=== PATIENT | male | born 1950 | race Hispanic/Latino ===

== ENCOUNTER 2018-04-05 01:06 | Inpatient (IN) | payer OTHER ==
[2018-04-05] MEDS ORDERED: predniSONE 20 MG TAB ONE (01:49)
[2018-04-05] MEDS ORDERED: IPRATROPIUM BROM 0.5MG/2.5ML ONE (01:49)
[2018-04-05] MEDS ORDERED: ALBUTEROL 2.5 MG/3 ML NEB SOL ONE (01:49)
[2018-04-05 02:07] LABS: Absolute Lymphocytes (CBC) 1.2 K/uL (0.7-4.9); Absolute Monocytes 0.6 K/uL (0.1-1.3); Absolute Neutrophil 4.8 K/uL (1.8-8.0); Basophils % 0.6 % (0-1.3); Eosinophils % 2.6 % (0-4.4); Lymphocytes % 16.9 % (15.3-44.8); MCH 27.8 pg (27.0-35.0); MCV 83.6 fL (80-100); MPV 8.1 fL (7.6-11.3); Monocytes % 9.2 % (3.3-12.3); RBC Red Blood Cell Count 6.22 M/uL (4.33-5.43)
[2018-04-05 02:19] LABS: Magnesium 2.2 mg/dL (1.8-2.4); Potassium 4.2 mmol/L (3.5-5.1); Troponin (Emerg Dept Use Only) 0.13 ng/mL (0.0-0.045)
[2018-04-05] MEDS ORDERED: FUROSEMIDE 40 MG/4 ML VIAL ONE (03:32)
--- NOTE | 2018-04-05 03:46 | EDPHYS ---
Physician Documentation [facility] Name: Denilson Quiros Age: 67 yrs Sex: Male : 1950 Arrival Date: 04/05/2018 Time: 01:07 Bed 3 Private MD: Praveena Rosado F ED Physician Hussein Fuller HPI: 04/05 03:34 This 67 yrs old Male presents to ER via Ambulatory with complaints of gs Breathing Difficulty, Chest Pain. 03:34 This 67 yrs old Male presents to ER via Ambulatory with complaints of gs Breathing Difficulty, Chest Pain. 03:34 The patient has shortness of breath at rest. Onset: The symptoms/episode began/occurred gs acutely, yesterday. Duration: The symptoms are continuous. The patient's shortness of breath has no apparent modifying factors. Associated signs and symptoms: Pertinent positives: chest pain. Severity of symptoms: At their worst the symptoms were moderate in the emergency department the symptoms are unchanged. The patient has experienced similar episodes in the past, a few times. Historical: - Allergies: 01:30 No Known Allergies; ao - Home Meds: 01:30 None [Active]; ao - PMHx: 01:30 Hyperlipidemia; ao 04:26 Cancer; ao - PSHx: 01:30 stent; ao - Immunization history:: Adult Immunizations up to date. - Social history:: Smoking status: Patient uses tobacco products, smokes one-half pack cigarettes per day, Patient/guardian denies using alcohol, street drugs. - Ebola Screening: : Patient negative for fever greater than or equal to 101.5 degrees Fahrenheit, and additional compatible Ebola Virus Disease symptoms Patient denies exposure to infectious person Patient denies travel to an Ebola-affected area in the 21 days before illness onset. ROS: 03:38 All other systems are negative. gs Exam: 03:38 Head/Face: Normocephalic, atraumatic. Eyes: Pupils equal round and reactive to light, gs extra-ocular motions intact. Lids and lashes normal. Conjunctiva and sclera are non-icteric and not injected. Cornea within normal limits. Periorbital areas with no swelling, redness, or edema. ENT: Nares patent. No nasal discharge, no septal abnormalities noted. Tympanic membranes are normal and external auditory canals are clear. Oropharynx with no redness, swelling, or masses, exudates, or evidence of obstruction, uvula midline. Mucous membranes moist. Neck: Trachea midline, no thyromegaly or masses palpated, and no cervical lymphadenopathy. Supple, full range of motion without nuchal rigidity, or vertebral point tenderness. No Meningismus. Chest/axilla: Normal chest wall appearance and motion. Nontender with no deformity. No lesions are appreciated. 03:38 Abdomen/GI: Soft, non-tender, with normal bowel sounds. No distension or tympany. No guarding or rebound. No evidence of tenderness throughout. Back: No spinal tenderness. No costovertebral tenderness. Full range of motion. Skin: Warm, dry with normal turgor. Normal color with no rashes, no lesions, and no evidence of cellulitis. MS/ Extremity: Pulses equal, no cyanosis. Neurovascular intact. Full, normal range of motion. Neuro: Awake and alert, GCS 15, oriented to person, place, time, and situation. Cranial nerves II-XII grossly intact. Motor strength 5/5 in all extremities. Sensory grossly intact. Cerebellar exam normal. Normal gait. 03:38 Constitutional: The patient appears alert, awake. 03:38 Cardiovascular: Rate: normal, Rhythm: irregularly irregular, Heart sounds: normal. 03:38 Cardiovascular: Edema: is not appreciated. 03:38 ECG was reviewed by the Attending Physician. 03:38 Respiratory: the patient does not display signs of respiratory distress, Respirations: normal, Breath sounds: rhonchi, that are moderate, are located in both bases, are heard diffusely. 03:38 Musculoskeletal/extremity: Joints: the right ankle displays swelling, DVT Exam: no gs pain, no swelling, no tenderness, negative Homans' sign noted on exam, no appreciated bluish discoloration, no erythema, no increased warmth. Vital Signs: 01:21 BP 156 / 86 LA Sitting (auto/reg); Pulse 66 LA; Resp 20 S; Temp 98.6(O); Pulse Ox 88% cb2 on R/A; Weight 83.91 kg (R); Height 5 ft. 6 in. (167.64 cm) (R); 02:30 BP 115 / 87; Pulse 70; Resp 16; Pulse Ox 98% on 2 lpm NC; ao 02:30 BP 120 / 71; Pulse 77; Resp 18; Pulse Ox 97% on 2 lpm NC; Pain 0/10; ao 04:01 BP 115 / 75; Pulse 78; Resp 16; Pulse Ox 96% on 2 lpm NC; ao 01:21 Body Mass Index 29.86 (83.91 kg, 167.64 cm) cb2 MDM: 01:34 Patient medically screened. 03:38 Differential diagnosis: CHF exacerbation, Chronic Obstructive Pulmonary Disease gs Myocardial Infarction pneumonia. Data reviewed: vital signs, nurses notes. 03:38 ED course: dr rosado did not call back will interim admit to [facility]. 04/05 01:37 Order name: Basic Metabolic Panel; Complete Time: 02:21 04/05 01:37 Order name: CBC with Diff; Complete Time: 02:21 04/05 01:37 Order name: Magnesium; Complete Time: 02:21 04/05 01:37 Order name: NT PRO-BNP; Complete Time: 02:21 04/05 01:37 Order name: Troponin (emerg Dept Use Only); Complete Time: 02:21 04/05 03:51 Order name: NT PRO-BNP [facility] 04/05 01:37 Order name: XRAY Chest (1 view) 04/05 03:51 Order name: Echo with Doppler [facility] 04/05 03:51 Order name: NT PRO-BNP [facility] 04/05 03:51 Order name: Troponin I [facility] 04/05 03:51 Order name: Troponin I [facility] 04/05 03:51 Order name: Troponin I [facility] 04/05 01:37 Order name: EKG; Complete Time: 01:37 04/05 01:37 Order name: Cardiac monitoring; Complete Time: 02:03 04/05 01:37 Order name: EKG - Nurse/Tech; Complete Time: 02:03 04/05 01:37 Order name: IV Saline Lock; Complete Time: 02:03 04/05 01:37 Order name: Labs collected and sent; Complete Time: 02:03 04/05 01:37 Order name: O2 Per Protocol; Complete Time: 02:03 04/05 01:37 Order name: O2 Sat Monitoring; Complete Time: 02:03 04/05 01:37 Order name: Urine Dipstick-Ancillary (obtain specimen); Complete Time: 03:57 04/05 03:51 Order name: CONS Physician Consult [facility] 04/05 03:51 Order name: Low Sodium EDPR EC:38 Rate is 62 beats/min. Rhythm is irregularly irregular, A fib. QRS interval is gs prolonged. QT interval is normal. T waves are Inverted. Clinical impression: Abnormal EKG without significant change and Atrial Fibrillation. Interpreted by me. Administered Medications: 01:51 Drug: AtroVENT Aerosol 0.5 mg Route: Inhalation; ao 03:32 Follow up: Response: No adverse reaction ao 01:51 Drug: predniSONE 40 mg Route: PO; ao 03:32 Follow up: Response: No adverse reaction ao 01:52 Drug: Albuterol - atroVENT (3:1) (2.5 mg - 0.5 mg) 3 ml Route: Nebulizer; ao 03:32 Follow up: Response: No adverse reaction ao 03:32 Drug: Lasix 40 mg Route: IVP; Site: left forearm; ao 04:18 Follow up: Response: No adverse reaction ao 04:18 Drug: Aspirin 325 mg Route: PO; ao 04:41 Follow up: Response: No adverse reaction ao Disposition: 03:38 Critical Care:. gs Disposition: 04/05/18 03:45 Hospitalization ordered by Kathleen Dejesus for Inpatient Admission. Preliminary diagnosis is Systolic (congestive) heart failure. - Bed requested for Telemetry/MedSurg (Inpatient). - Status is Inpatient Admission. ao - Condition is Stable. - Problem is new. - Symptoms have improved. UTI on Admission? No Critical care time excluding procedures: 03:38 Critical care time: Bedside Care: 10 minutes, Consultation: 10 minutes, Family gs Intervention: 10 minutes. Total time: 30 minutes Signatures: Dispatcher [employer] [facility] Madison García RN RN mw Ortiz, Alex, RN RN ao Starr, Gregory, MD MD gs Corrections: (The following items were deleted from the chart) 04:06 03:45 Hospitalization Ordered by Kathleen Dejesus MD for Inpatient Admission. Preliminary diagnosis is Systolic (congestive) heart failure. Bed requested for Telemetry/MedSurg (Inpatient). Status is Inpatient Admission. Condition is Stable. Problem is new. Symptoms have improved. UTI on Admission? No. gs 04:42 04:06 04/05/2018 03:45 Hospitalization Ordered by Kathleen Dejesus MD for Inpatient ao Admission. Preliminary diagnosis is Systolic (congestive) heart failure. Bed requested for Telemetry/MedSurg (Inpatient). Status is Inpatient Admission. Condition is Stable. Problem is new. Symptoms have improved. UTI on Admission? No. mw
--- NOTE | 2018-04-05 03:46 | ER ---
Nurse's Notes [facility] Name: Denilson Quiros Age: 67 yrs Sex: Male : 1950 Arrival Date: 04/05/2018 Time: 01:07 Bed 3 Private MD: Praveena Ansari F Diagnosis: Systolic (congestive) heart failure Presentation: 04/05 01:25 Presenting complaint: Patient states: Cough for a month that is getting worst. Patient ao started C/O SOB for a day and chest pain related to the cough as stated by patient. Pt O2 was 88 at triage and started on 2l NC. Transition of care: patient was not received from another setting of care. Onset of symptoms is unknown. Risk Assessment: Do you want to hurt yourself or someone else? Patient reports no desire to harm self or others. Initial Sepsis Screen: Does the patient meet any 2 criteria? No. Patient's initial sepsis screen is negative. Does the patient have a suspected source of infection? No. Patient's initial sepsis screen is negative. Care prior to arrival: None. 01:25 Method Of Arrival: Ambulatory ao 01:25 Acuity: CHUCKY 3 ao Triage Assessment: 01:33 General: Appears in no apparent distress. comfortable, Behavior is calm, cooperative, ao appropriate for age. Respiratory: Reports shortness of breath at rest Onset: The symptoms/episode began/occurred at an unknown time. the patient has moderate shortness of breath. Historical: - Allergies: 01:30 No Known Allergies; ao - Home Meds: 01:30 None [Active]; ao - PMHx: 01:30 Hyperlipidemia; ao 04:26 Cancer; ao - PSHx: 01:30 stent; ao - Immunization history:: Adult Immunizations up to date. - Social history:: Smoking status: Patient uses tobacco products, smokes one-half pack cigarettes per day, Patient/guardian denies using alcohol, street drugs. - Ebola Screening: : Patient negative for fever greater than or equal to 101.5 degrees Fahrenheit, and additional compatible Ebola Virus Disease symptoms Patient denies exposure to infectious person Patient denies travel to an Ebola-affected area in the 21 days before illness onset. Screenin:33 Abuse screen: Denies threats or abuse. Denies injuries from another. Nutritional ao screening: No deficits noted. Tuberculosis screening: No symptoms or risk factors identified. Fall Risk None identified. Assessment: 01:30 General: Appears in no apparent distress. comfortable, Behavior is calm, cooperative, ao appropriate for age. Pain: Complains of pain in chest. Neuro: Level of Consciousness is awake, alert, obeys commands, Oriented to person, place, time, situation, Appropriate for age Moves all extremities. Full function Speech is normal, Facial symmetry appears normal. Cardiovascular: Heart tones S1 S2 Capillary refill < 3 seconds Patient's skin is warm and dry. Rhythm is regular. Respiratory: Airway is patent Trachea midline Respiratory effort is even, unlabored, Respiratory pattern is regular, Breath sounds with crackles bilaterally. GI: Abdomen is non-distended. : No signs and/or symptoms were reported regarding the genitourinary system. EENT: No signs and/or symptoms were reported regarding the EENT system. Derm: Skin is intact, Skin is pink, warm \T\ dry. normal, Skin temperature is warm. Musculoskeletal: Circulation, motion, and sensation intact. Capillary refill < 3 seconds, Range of motion: intact in all extremities. 02:30 Reassessment: Patient appears in no apparent distress at this time. Patient and/or ao family updated on plan of care and expected duration. Pain level reassessed. Patient is alert, oriented x 3, equal unlabored respirations, skin warm/dry/pink. Continuous monitoring. Pt in no distress. 03:19 Reassessment: Patient appears in no apparent distress at this time. Patient and/or ao family updated on plan of care and expected duration. Pain level reassessed. Patient is alert, oriented x 3, equal unlabored respirations, skin warm/dry/pink. Patient in room with family at bedside. Patient under no distress. 03:57 Reassessment: Patient appears in no apparent distress at this time. Patient and/or ao family updated on plan of care and expected duration. Pain level reassessed. Pt to stay in the hospital. Patient agree with the POC. Waiting on admitting Dr orders. Vital Signs: 01:21 BP 156 / 86 LA Sitting (auto/reg); Pulse 66 LA; Resp 20 S; Temp 98.6(O); Pulse Ox 88% cb2 on R/A; Weight 83.91 kg (R); Height 5 ft. 6 in. (167.64 cm) (R); 02:30 BP 115 / 87; Pulse 70; Resp 16; Pulse Ox 98% on 2 lpm NC; ao 02:30 BP 120 / 71; Pulse 77; Resp 18; Pulse Ox 97% on 2 lpm NC; Pain 0/10; ao 04:01 BP 115 / 75; Pulse 78; Resp 16; Pulse Ox 96% on 2 lpm NC; ao 01:21 Body Mass Index 29.86 (83.91 kg, 167.64 cm) cb2 ED Course: 01:07 Patient arrived in ED. ds1 01:07 Praveena Ansari MD is Private Physician. ds1 01:14 Hussein Fuller MD is Attending Physician. gs 01:25 Chet Ramos, JONH is Primary Nurse. ao 01:27 Triage completed. ao 01:27 Arm band placed on right wrist. Patient placed in an exam room, on a stretcher, on ao oxygen, on pulse oximetry. 01:33 Patient has correct armband on for positive identification. sales route driver helper on. Pulse ao ox on. 01:49 X-ray completed. Portable x-ray completed in exam room. Patient tolerated procedure kw well. 01:49 XRAY Chest (1 view) In Process Unspecified. EDMS 02:03 Initial lab(s) drawn, by me, sent to lab. EKG done, by ED staff. Inserted saline lock: cb2 20 gauge in right forearm, using aseptic technique. 03:45 Kathleen Dejesus MD is Hospitalizing Provider. gs 04:41 No provider procedures requiring assistance completed. Patient admitted, IV remains in ao place. Administered Medications: 01:51 Drug: AtroVENT Aerosol 0.5 mg Route: Inhalation; ao 03:32 Follow up: Response: No adverse reaction ao 01:51 Drug: predniSONE 40 mg Route: PO; ao 03:32 Follow up: Response: No adverse reaction ao 01:52 Drug: Albuterol - atroVENT (3:1) (2.5 mg - 0.5 mg) 3 ml Route: Nebulizer; ao 03:32 Follow up: Response: No adverse reaction ao 03:32 Drug: Lasix 40 mg Route: IVP; Site: left forearm; ao 04:18 Follow up: Response: No adverse reaction ao 04:18 Drug: Aspirin 325 mg Route: PO; ao 04:41 Follow up: Response: No adverse reaction ao Outcome: 03:45 Decision to Hospitalize by Provider. 04:42 Admitted to Med/surg accompanied by tech, room 219, with chart, Report called to chip Menchaca RN 04:42 Condition: stable 04:42 Instructed on the need for admit. 04:42 Patient left the ED. chip Signatures: Dispatcher [employer] [facility]SC Wendy Cadet ds1 Maryam Chaudhary Alex RN RN Scooby Sharif Gregory, MD MD gs
[2018-04-05] MEDS ORDERED: IPRATROPIUM BROM 0.5MG/2.5ML NEB PRN (03:49)
[2018-04-05] MEDS ORDERED: ACETAMINOPHEN 500 MG TAB PO PRN (03:49)
[2018-04-05] MEDS ORDERED: ALBUTEROL 2.5 MG/3 ML NEB SOL NEB PRN (03:49)
--- NOTE | 2018-04-05 04:13 | P.PN ---
Date of Service: 04/05/18 Spoke to ER physician regarding admission. Patient has a history of cardiac disease but came in with shortness of breath. There was concern for congestive heart failure exacerbation. Patient has significantly elevated BNP levels. Patient also had mildly elevated troponins and so they wanted to admit her to the hospital for CHF exacerbation with cardiology consultation. Patient was diuresed in the emergency room. Will need to monitor his renal function closely and strict input and output as is creatinine is slightly elevated. Will observe the patient in transfer care to his primary care provider in the morning Dr. Ansari. Patient will also see Cardiology in the morning. He will get cardiology workup including echocardiogram and additional testing as requested per Cardiology.
[2018-04-05] MEDS ORDERED: ASPIRIN EC 325 MG TABLET PO ONE (04:19)
--- NOTE | 2018-04-05 06:51 | EKG ---
Test Date: 2018-04-05 Test Time: 01:59:18 Whiskey Regauger: MARIALUISA MEASUREMENT RESULTS: Intervals: Rate: 62 TN: QRSD: 114 QT: 440 QTc: 446 [place]: P: TN: QRS: -54 T: 192 INTERPRETIVE STATEMENTS: Atrial fibrillation Incomplete right bundle branch block Left anterior fascicular block Voltage criteria for left ventricular hypertrophy ST & T wave abnormality, consider inferolateral ischemia Abnormal ECG No previous ECG available for comparison Electronically Signed On 04-05-18 06:50:44 CDT by Rishabh Webster
[2018-04-05] MEDS ORDERED: PNEUMOCOCCAL VACCINE 0.5 ML IMVAC ONE (08:00)
--- NOTE | 2018-04-05 08:28 | RAD REPORT ---
EXAM DESCRIPTION: RAD - Chest Single View - 04/05/2018 1:49 am CLINICAL HISTORY: COPD, shortness of breath COMPARISON: None. TECHNIQUE: AP portable chest image was obtained 0146 hours . FINDINGS: Baseline study shows extensive interstitial opacification slightly worse in the lower left lung field. No one large mass or consolidations seen. In the acute clinical setting, interstitial an d patchy alveolar pneumonia would be suspected in the left lung field. Patient could have fibrosis, a cute interstitial edema or interstitial infiltrate. These can exist as solitary findings or a combina tion. Mild cardiomegaly seen. There is mild vascular engorgement. Trachea is midline. No measurable pleura l effusion and no pneumothorax. No gross bony abnormality seen. No acute aortic findings suspected. IMPRESSION: Cardiomegaly, vascular engorgement and interstitial opacities are present. Left lung fie ld has interstitial and patchy alveolar opacification. Findings can simply be CHF/ volume overload. Concurrent or superimposed left lower lung field pneumon ia possible as well.
[2018-04-05] MEDS: FUROSEMIDE 20 MG/ 2ML VIAL IV SCH ×2 (09:07→17:50)
[2018-04-05] MEDS: ASPIRIN EC 81 MG TAB PO SCH (09:07)
[2018-04-05 11:20] LABS: Absolute Lymphocytes (CBC) 0.4 K/uL (0.7-4.9); Absolute Monocytes 0.2 K/uL (0.1-1.3); Absolute Neutrophil 7.2 K/uL (1.8-8.0); Basophils % 0.1 % (0-1.3); Eosinophils % 0.1 % (0-4.4); Hematocrit 50.1 % (39.6-49.0); Lymphocytes % 5.2 % (15.3-44.8); MCV 84.8 fL (80-100); MPV 8.9 fL (7.6-11.3); Monocytes % 2.6 % (3.3-12.3); RBC Red Blood Cell Count 5.91 M/uL (4.33-5.43)
[2018-04-05 11:46] LABS: Albumin 3.1 g/dL (3.4-5.0); Bilirubin Total 0.6 mg/dL (0.2-1.0); Magnesium 2.1 mg/dL (1.8-2.4); Phosphorus 2.5 mg/dL (2.5-4.9); Potassium 4.6 mmol/L (3.5-5.1); Protein, Total 6.8 g/dL (6.4-8.2); Thyroid Stimulating Hormone 0.738 uIU/mL (0.360-3.740); Troponin I 0.1 ng/mL (0.0-0.045)
[2018-04-05 11:52] LABS: Blood Morphology Comment NOT SEEN (NOT SEEN); Platelet Estimate ADEQ; Urine White Blood Cell Casts OK
--- NOTE | 2018-04-05 12:16 | CON ---
Date of Consultation: 04/05/[address] Dejesus's service on 04/05/2018. Reason For Consultation: Congestive heart failure and elevated troponin. History Of Present Illness: Mr. Quiros is a 67-year-old [place] male, who has a history of co ronary artery disease and stents in the past, has a history of dyslipidemia. The only medication he takes is Lipitor. He came in with some shortness of breath. No chest pain, nausea, vomiting, diapho resis, PND, orthopnea, pedal edema, palpitation, or syncope. Chest x-rays showed congestive heart fa ilure. Troponin was slightly elevated. Creatinine is 1.4. BNP is 7293. The patient was feeling be tter after Lasix, was actually requesting to go home. Allergies: NONE. Review of Systems: Negative. Social History: Negative. Family History: Noncontributory. Medications: Listed above. Physical Examination: Vital Signs: Stable. He was afebrile, in sinus rhythm. HEENT: Negative. Neck: Supple with no bruit. Chest: Revealed crackles in both bases. Cardiac exam: Revealed a regular rhythm and rate without any murmurs, gallops, or rubs. Abdomen: Benign. Extremities: Revealed no clubbing, cyanosis, or edema. Diagnostic Data: As stated earlier. Impression And Plan: 1.Elevated troponin and BNP, secondary to congestive heart failure in a patient with history of rashmi nary artery disease. 2.Dyslipidemia. I believe an echocardiogram is pending and we will see what that shows prior to making any final deci sions. We need to treat him for congestive heart failure depending what his ejection fraction shows and whether he has systolic or diastolic congestive heart failure. He did not have any chest pain. His troponin is slightly elevated. I do not intend to do any heart catheterization on him. We can c ertainly do an outpatient stress test on him later. His dyslipidemia is controlled on Lipitor. He h as moderate renal insufficiency. We need to keep an eye on that while we are diuresing him. I will discuss the case further with Dr. Dejesus and Dr. Ansari, his primary care physician. SADAF/CARL Voice ID: [id number] Report ID: [id number]
--- NOTE | 2018-04-05 12:48 | ECHO ---
HEIGHT: 5 ft 7 in WEIGHT: 178 lb 0 oz DATE OF STUDY: 04/05/[address]: Hussein Fuller MD 2-DIMENSIONAL: YES M.MODE: YES DOPPLER: YES COLOR FLOW: YES TDS: NO PORTABLE: NO DEFINITY: NO BUBBLE STUDY: NO DIAGNOSIS: CONGESTIVE HEART FAILURE CARDIAC HISTORY: CATHERIZATION: NO SURGERY: NO PROSTHETIC VALVE: NO PACEMAKER: NO MEASUREMENTS (cm) DIASTOLIC (NORMALS) SYSTOLIC (NORMALS) IVSd 1.1 (0.6-1.2) LA Diam 3.9 (1.9-4.0) LVEF 58% LVIDd 4.5 (3.5-5.7) LVIDs 3.1 (2.0-3.5) %FS 30% LVPWd 1.2 (0.6-1.2) Ao Diam 3.1 (2.0-3.7) 2 DIMENSIONAL ASSESSMENT: RIGHT ATRIUM: NORMAL LEFT ATRIUM: NORMAL RIGHT VENTRICLE: NORMAL LEFT VENTRICLE: NORMAL TRICUSPID VALVE: NORMAL MITRAL VALVE: NORMAL PULMONIC VALVE: NORMAL AORTIC VALVE: NORMAL PERICARDIAL EFFUSION: NONE AORTIC ROOT: NORMAL LEFT VENTRICULAR WALL MOTION: NORMAL DOPPLER/COLOR FLOW: MILD TRICUSPID REGURGITATION. COMMENTS: MILD TRICUSPID REGURGITATION. NORMAL LEFT VENTRICULAR SIZE AND FUNCTION. TECHNOLOGIST: Fly BOWENS
[2018-04-05] MEDS ORDERED: ENOXAPARIN 40 MG/0.4 ML SQ SCH (17:00)
[2018-04-05] MEDS ORDERED: ATORVASTATIN 40 MG TAB PO SCH (21:00)
--- NOTE | 2018-04-05 23:30 | HP ---
Date of Admission: 04/05/2018 History Of Present Illness: A 67-year-old male with history of coronary artery disease, who has been following with [facility]. He started having increased shortness of breath with activity for the past at least a week or so, however, yesterday he started feeling more short of breath, even at rest. He had some, what he thinks is chest pain that comes out only with coughing. He got conse nt, came to the emergency room, was found to be in acute systolic congestive heart failure exacerbati on and was admitted for that. Review of Systems: Cardiovascular: As above. Respiratory: As above. Gastrointestinal: No complaints. ENT: No complaints. Skeletomuscular: No complaint. Neurological: No complaint. Past Medical History: 1.Carotid artery disease. 2.Hyperlipidemia. 3.Benign prostatic hypertrophy. Social History: The patient is a smoker about a pack a day for many years. No alcohol or drug abuse history. Family History: Noncontributory. Medications: Reports only taking atorvastatin 40 mg p.o. daily. Allergies: NO KNOWN DRUG ALLERGIES. Physical Examination: Vital Signs: Blood pressure 107/65, pulse 76, temperature 97.5. Heart: Regular rate and rhythm. Chest: Bibasilar rales. Abdomen: Soft, benign. Neurological: Alert, oriented, grossly intact. Extremities: No edema. No cyanosis. Head and neck: No JVD. No bruit. Diagnostic Data: EKG showed atrial fibrillation, left anterior fascicular block and incomplete right bundle block. Chest x-ray showed cardiomegaly with increased vascular and interstitial opacities in the lung sims. The left with patchy opacification, CHF, or volume overload, more likely than pneu monia. Laboratory Data: White cell count 7.9, hemoglobin 16.6, hematocrit 50.1, and platelets 198. Fagot Maker ry: BUN 15, creatinine 1.40 rapid troponin 0.13. BNP 7293. Assessment And Plan: 1.Acute systolic congestive heart failure. The patient will be admitted for bedrest, salt restricti on and IV Lasix. Cardiac echo ordered. We will consult Cardiology. 2.Atrial fibrillation, likely new onset. Ventricular rate is not rapid. The patient right now on L ovenox. We will see Cardiology recommendation from that standpoint. May put him on chronic anticoag ulation. 3.History of smoking, likely chronic obstructive pulmonary disease exacerbation. Also, the patient is on beta-2 agonist breathing treatments. Look orders for details. EZIO/CARL Voice ID: [id number]
[2018-04-06] MEDS: FUROSEMIDE 20 MG/ 2ML VIAL IV SCH (08:54)
[2018-04-06] MEDS: ASPIRIN EC 81 MG TAB PO SCH (08:54)
--- NOTE | 2018-04-07 01:09 | DS ---
Date of Discharge: 04/06/2018 Subjective: A 67-year-old male who was admitted to the hospital because of what he described as shor tness of breath. The patient thought to be having congestive heart failure. We went ahead and admit candace him, put him on salt restriction, on IV Lasix. Past Medical History: As per admit note. Social History: As per admit note. Family History: As per admit note. Medications: As per admit note. Allergies: PER ADMIT NOTE. Physical Examination: As per admit note. Diagnostic Data: As per admit note. Hospital Course: The patient was admitted to the hospital with the above plan. We will put him on h is home medications for chronic medical illnesses. I went ahead and consulted Cardiology. Dr. Van maldonado had seen the patient and he ordered an echo on his heart. His left ventricular ejection fraction came back to be 58%. So, the patient did not have acute systolic congestive heart failure exacerbati on. The patient on his EKG showed atrial fibrillation with controlled rate and I think that the black ent's symptom of feeling short of breath was due to that, at this time we discussed with Dr. Webster. We will go ahead and put him on Eliquis 5 mg 1 p.o. b.i.d. At the same time, the patient will foll ow up with Cardiology and will follow up with me. The patient during his hospitalization has chronic renal insufficiency, on the IV Lasix, got little bit worse when the creatinine went up from 1.4 to 1 .6. We expect that to improve as he is off his furosemide. We will monitor this as an outpatient. His glomerular filtration rate was 43. So, we will see the patient and we will go ahead and discharg e him on Eliquis. Resume his home medications and the patient is not to take any diuretic. Follow up with me, with Dr. Webster. Look orders for details. MFS/MODL Voice ID: [id number] Report ID: [id number]
== END 2018-04-06 15:04 | disposition home or self-care (01) | DRG 309 ==
LOC: ER 01:06 → ERHOLD 03:52 → 2ND 04:28
PROVIDERS: ADMIT Internal Medicine; ATTEND Internal Medicine
DX: I48.91 Unspecified atrial fibrillation (principal); J44.1 Chronic obstructive pulmonary disease with (acute) exacerbation; I25.10 Atherosclerotic heart disease of native coronary artery without angina pectoris; E78.5 Hyperlipidemia, unspecified; N28.9 Disorder of kidney and ureter, unspecified; Z95.5 Presence of coronary angioplasty implant and graft; N40.0 Benign prostatic hyperplasia without lower urinary tract symptoms
CPT/HCPCS: 36415; 71045; 80048; 80053; 80061; 83735; 83880; 84100; 84443; 84484; 85025; 93005; 93306; 94640; 96374; 99285; J1650; J1940; J7512

== ENCOUNTER 2018-05-10 00:07 | Observation (INO) | payer OTHER ==
[2018-05-10 01:16] LABS: Absolute Monocytes 0.7 K/uL (0.1-1.3); Absolute Neutrophil 4.8 K/uL (1.8-8.0); Basophils % 0.9 % (0-1.3); Eosinophils % 4.5 % (0-4.4); Hematocrit 49.9 % (39.6-49.0); Lymphocytes % 14.2 % (15.3-44.8); MCH 27.4 pg (27.0-35.0); MCV 84.4 fL (80-100); Monocytes % 10.4 % (3.3-12.3); RBC Red Blood Cell Count 5.92 M/uL (4.33-5.43)
[2018-05-10 01:25] LABS: Protime INR 1.14
[2018-05-10] MEDS ORDERED: ALBUTEROL 2.5 MG/3 ML NEB SOL ONE (01:34)
[2018-05-10] MEDS ORDERED: IPRATROPIUM BROM 0.5MG/2.5ML ONE (01:34)
[2018-05-10] MEDS ORDERED: NA CHLORIDE 0.9% 500 ML ONE (01:34)
[2018-05-10] MEDS ORDERED: MAGNESIUM SULFATE 1 gm IVPB 1 GM/100 ML BAG IV ONE (01:35)
[2018-05-10 01:55] LABS: Bilirubin Direct 0.1 mg/dL (0-0.2); Bilirubin Total 0.4 mg/dL (0.2-1.0); Magnesium 2.1 mg/dL (1.8-2.4); Potassium 4.2 mmol/L (3.5-5.1); Protein, Total 7.2 g/dL (6.4-8.2); Troponin (Emerg Dept Use Only) 0.09 ng/mL (0.0-0.045)
--- NOTE | 2018-05-10 03:15 | ER ---
Nurse's Notes [facility] Name: Denilson Quiros Age: 67 yrs Sex: Male : 1950 Arrival Date: 05/10/2018 Time: 00:10 Bed 17 Private MD: Praveena Ansari F Diagnosis: Unspecified combined systolic (congestive) and diastolic (congestive) heart failure;Unspecified atrial fibrillation Presentation: 05/10 01:10 Presenting complaint: Patient states: SOB for the past few days. C/O cough with ao productive secretions. Transition of care: patient was not received from another setting of care. Onset of symptoms is unknown. Risk Assessment: Do you want to hurt yourself or someone else? Patient reports no desire to harm self or others. Initial Sepsis Screen: Does the patient meet any 2 criteria? No. Patient's initial sepsis screen is negative. Does the patient have a suspected source of infection? No. Patient's initial sepsis screen is negative. Care prior to arrival: None. 01:10 Method Of Arrival: Ambulatory ao 01:10 Acuity: CHUCKY 3 ao Triage Assessment: 01:55 General: Appears in no apparent distress. comfortable, Behavior is calm, cooperative, ao appropriate for age. Respiratory: Reports shortness of breath on exertion Onset: The symptoms/episode began/occurred at an unknown time. the patient has moderate shortness of breath. Historical: - Allergies: 01:52 No Known Allergies; ao - Home Meds: 06:26 Eliquis oral oral [Active]; atorvastatin oral oral [Active]; ao - PMHx: 01:52 Cancer; Hyperlipidemia; ao 06:26 Atrial Fib; ao - PSHx: 01:52 None; ao - Immunization history:: Adult Immunizations up to date. - Social history:: Smoking status: Patient/guardian denies using tobacco, Patient/guardian denies using alcohol, street drugs. - Ebola Screening: : Patient negative for fever greater than or equal to 101.5 degrees Fahrenheit, and additional compatible Ebola Virus Disease symptoms Patient denies exposure to infectious person Patient denies travel to an Ebola-affected area in the 21 days before illness onset. Screenin:55 Abuse screen: Denies threats or abuse. Denies injuries from another. Nutritional ao screening: No deficits noted. Tuberculosis screening: No symptoms or risk factors identified. Fall Risk None identified. Assessment: 01:10 General: Appears in no apparent distress. comfortable, Behavior is calm, cooperative, ao appropriate for age. Pain: Denies pain. Neuro: Level of Consciousness is awake, alert, obeys commands, Oriented to person, place, time, situation, Appropriate for age Moves all extremities. Full function Speech is normal, Facial symmetry appears normal, Pupils are PERRLA. Cardiovascular: Capillary refill < 3 seconds Patient's skin is warm and dry. Cardiovascular: Rhythm is regular. Respiratory: Airway is patent Respiratory effort is even, unlabored, Breath sounds are diminished bilaterally. GI: Abdomen is non-distended. : No signs and/or symptoms were reported regarding the genitourinary system. EENT: No signs and/or symptoms were reported regarding the EENT system. Derm: No signs and/or symptoms reported regarding the dermatologic system. Musculoskeletal: No signs and/or symptoms reported regarding the musculoskeletal system. 07:03 Reassessment: RECD REPORT FROM AGUSTÍN BORJA. 67YO HM P/W SOB x2 DAYS. TROP AND BNP ELEVATED. bp ADMIT IN PROCESS FOR CHF EXACERBATION. Vital Signs: 01:40 BP 156 / 92; Pulse 69; Resp 18; Pulse Ox 99% on Nebulizer Mask; mt 02:30 BP 146 / 91; Pulse 78; Resp 16; Pulse Ox 94% on R/A; mt 07:34 BP 116 / 75; Pulse 59; Resp 16; Temp 97.8; Pulse Ox 100% on 2 lpm NC; bp ED Course: 00:00 Inserted saline lock: 20 gauge in right forearm, using aseptic technique. Blood ao collected. 00:10 Patient arrived in ED. es 00:10 Praveena Ansari MD is Private Physician. es 00:20 Jairo Goodson PA is PHCP. cp 00:20 Joseph Bhatia MD is Attending Physician. cp 00:46 Agustín Ramos, JONH is Primary Nurse. ao 01:24 X-ray completed. Portable x-ray completed in exam room. Patient tolerated procedure kw well. 01:26 XRAY Chest (1 view) In Process Unspecified. EDMS 01:52 Triage completed. ao 01:53 Arm band placed on right wrist. 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 01:56 Patient has correct armband on for positive identification. pen tester on. Pulse ao ox on. NIBP on. 03:14 Praveena Ansari MD is Hospitalizing Provider. cp 05:50 No provider procedures requiring assistance completed. Patient admitted, IV remains in ao place. 07:01 Primary Nurse role handed off by Agustín Ramos, RN bp 07:01 Butch Lion, JONH is Primary Nurse. bp Administered Medications: 01:10 Drug: Albuterol - atroVENT (3:1) (2.5 mg - 0.5 mg) 3 ml Route: Nebulizer; ao 03:08 Follow up: Response: No adverse reaction ao 01:35 Drug: Magnesium Sulfate 1 grams Route: IVPB; Infused Over: 1 hrs; Site: right forearm; ao 03:08 Follow up: IV Status: Completed infusion; IV Intake: 100ml ao 01:35 Drug: NS 0.9% 500 ml Route: IV; Rate: bolus; Site: right forearm; ao 03:08 Follow up: IV Status: Completed infusion; IV Intake: 500ml ao 03:19 Drug: Aspirin Chewable Tablet 324 mg Route: PO; ao 05:52 Follow up: Response: No adverse reaction ao 03:40 Drug: Lasix 20 mg Route: IVP; Site: right forearm; ao 05:51 Follow up: Response: No adverse reaction ao Intake: 03:08 IV: 100ml; Total: 100ml. ao 03:08 IV: 500ml; Total: 600ml. ao Outcome: 03:15 Decision to Hospitalize by Provider. cp 05:51 Admitted to ER Hold. Please see [facility] for further documentation. ao 05:51 Condition: stable 05:51 Instructed on the need for admit. 07:35 Admitted to Tele accompanied by tech, family with patient, via wheelchair, room 210, bp with chart, Report called to AMAURI BORJA 07:40 Patient left the ED. bp Signatures: Dispatcher [employer] Deann Valiente Kimberlee kw Page, Corey, PA PA cp Agustín Ramos, RN RN Kourtney Meyers mt, Brian, JONH RN bp Corrections: (The following items were deleted from the chart) 06:26 01:52 Home Meds: None; ao ao
--- NOTE | 2018-05-10 03:15 | EDPHYS ---
Physician Documentation [facility] Name: Denilson Quiros Age: 67 yrs Sex: Male : 1950 Arrival Date: 05/10/2018 Time: 00:10 Bed 17 Private MD: Praveena Ansari F ED Physician Joseph Bhatia HPI: 05/10 00:35 This 67 yrs old Male presents to ER via Ambulatory with complaints of cp Breathing Difficulty. 00:35 The patient has shortness of breath with light activity. Onset: The symptoms/episode cp began/occurred 2 day(s) ago. Duration: The symptoms are continuous, and are steadily getting worse. Associated signs and symptoms: Pertinent positives: productive cough, Pertinent negatives: chest pain, diaphoresis, dizziness, fever, hemoptysis, numbness in extremities, visual changes, vomiting. Severity of symptoms: in the emergency department the symptoms are unchanged despite home interventions. Historical: - Allergies: 01:52 No Known Allergies; ao - Home Meds: 06:26 Eliquis oral oral [Active]; atorvastatin oral oral [Active]; ao - PMHx: 01:52 Cancer; Hyperlipidemia; ao 06:26 Atrial Fib; ao - PSHx: 01:52 None; ao - Immunization history:: Adult Immunizations up to date. - Social history:: Smoking status: Patient/guardian denies using tobacco, Patient/guardian denies using alcohol, street drugs. - Ebola Screening: : Patient negative for fever greater than or equal to 101.5 degrees Fahrenheit, and additional compatible Ebola Virus Disease symptoms Patient denies exposure to infectious person Patient denies travel to an Ebola-affected area in the 21 days before illness onset. ROS: 00:40 Constitutional: Negative for body aches, chills, fever, poor PO intake. cp 00:40 Eyes: Negative for injury, pain, redness, and discharge. cp 00:40 ENT: Negative for drainage from ear(s), ear pain, sore throat, difficulty swallowing, difficulty handling secretions. 00:40 Cardiovascular: Negative for chest pain, edema, palpitations. 00:40 Respiratory: Positive for cough, dyspnea on exertion, shortness of breath, on exertion. 00:40 Abdomen/GI: Negative for abdominal pain, nausea, vomiting, and diarrhea, constipation, black/tarry stool, rectal bleeding. 00:40 Back: Negative for pain at rest, pain with movement. 00:40 : Negative for urinary symptoms. 00:40 Skin: Negative for cellulitis, rash. 00:40 Neuro: Negative for altered mental status, dizziness, headache, syncope, near syncope, weakness. 00:40 All other systems are negative. Exam: 00:45 Constitutional: The patient appears in no acute distress, alert, awake, cp non-diaphoretic, non-toxic, well developed, well nourished. 00:45 Head/Face: Normocephalic, atraumatic. Eyes: Pupils equal round and reactive to light, cp extra-ocular motions intact. Lids and lashes normal. Conjunctiva and sclera are non-icteric and not injected. Cornea within normal limits. Periorbital areas with no swelling, redness, or edema. ENT: Nares patent. No nasal discharge, no septal abnormalities noted. Tympanic membranes are normal and external auditory canals are clear. Oropharynx with no redness, swelling, or masses, exudates, or evidence of obstruction, uvula midline. Mucous membranes moist. 00:45 Neck: ROM/movement: is normal, is supple, without pain, no range of motions limitations, no meningismus, no nuchal rigidity, Lymph nodes: no appreciated lymphadenopathy. 00:45 Chest/axilla: Inspection: normal, Palpation: is normal, no crepitus, no tenderness. 00:45 Cardiovascular: Rate: normal, Rhythm: irregularly irregular, Pulses: Pulses are 2+ in right radial artery and left radial artery. Edema: is not appreciated, JVD: is not appreciated. 00:45 Respiratory: the patient does not display signs of respiratory distress, Respirations: labored breathing, is not present, shallow respirations, are not present, Breath sounds: decreased breath sounds, that are mild, throughout, stridor, is not appreciated, wheezing: that is mild, is heard diffusely. 00:45 Abdomen/GI: Inspection: abdomen appears normal, Bowel sounds: active, all quadrants, Palpation: abdomen is soft and non-tender, in all quadrants, rebound tenderness, is not appreciated, voluntary guarding, is not appreciated, involuntary guarding, is not appreciated. 00:45 Back: pain, is absent, ROM is normal. 00:45 Skin: cellulitis, is not appreciated, no rash present. 00:45 Neuro: Orientation: to person, place \T\ time. Mentation: is normal, Cerebellar function: is grossly normal, Motor: moves all fours, strength is normal, Sensation: no obvious gross deficits. 01:10 ECG was reviewed by the Attending Physician. Vital Signs: 01:40 BP 156 / 92; Pulse 69; Resp 18; Pulse Ox 99% on Nebulizer Mask; mt 02:30 BP 146 / 91; Pulse 78; Resp 16; Pulse Ox 94% on R/A; mt 07:34 BP 116 / 75; Pulse 59; Resp 16; Temp 97.8; Pulse Ox 100% on 2 lpm NC; bp MDM: 00:20 Patient medically screened. cp 03:13 Data reviewed: vital signs, nurses notes, lab test result(s), EKG, radiologic studies, cp plain films, and as a result, I will admit patient. Test interpretation: by ED physician or midlevel provider: ECG, plain radiologic studies. Physician consultation: Corwin Schwab MD was called at 03:13, was contacted at 03:13, regarding admission, to the telemetry unit. would like consultation with Dr. Hdez. 05/10 00:31 Order name: Basic Metabolic Panel; Complete Time: 02:45 cp 05/10 03:04 Interpretation: Normal except: GLUC 125; CRE 1.40; GFR 50; CA 8.4. cp 05/10 00:31 Order name: CBC with Diff; Complete Time: 02:45 cp 05/10 03:04 Interpretation: Normal except: RBC 5.92; HCT 49.9; LYM% 14.2; EOSINOPHIL % 4.5. cp 05/10 00:31 Order name: LFT's; Complete Time: 02:45 cp 05/10 03:05 Interpretation: Normal except: ALB 3.0; GLOB 4.2; A/G 0.7. cp 05/10 00:31 Order name: Magnesium; Complete Time: 02:45 cp 05/10 00:31 Order name: NT PRO-BNP; Complete Time: 02:45 cp 05/10 02:45 Interpretation: Abnormal: NT PRO-BNP 6214. cp 05/10 00:31 Order name: PT-INR; Complete Time: 02:45 cp 05/10 03:05 Interpretation: Abnormal: PT 13.5. cp 05/10 00:31 Order name: Troponin (emerg Dept Use Only); Complete Time: 02:45 cp 05/10 03:05 Interpretation: Abnormal: TROPED 0.09. cp 05/10 00:31 Order name: XRAY Chest (1 view) cp 05/10 00:31 Order name: Influenza Screen (a \T\ B); Complete Time: 02:45 cp 05/10 00:32 Order name: Procalcitonin; Complete Time: 02:45 cp 05/10 00:32 Order name: Blood Culture Adult (2) cp 05/10 03:08 Order name: Urine Dipstick--Ancillary (enter results) mw2 05/10 05:45 Order name: Troponin I EDMS 05/10 00:31 Order name: EKG; Complete Time: 00:32 cp 05/10 00:31 Order name: Cardiac monitoring; Complete Time: 01:08 cp 05/10 00:31 Order name: EKG - Nurse/Tech; Complete Time: 01:08 cp 05/10 00:31 Order name: IV Saline Lock; Complete Time: 01:08 cp 05/10 00:31 Order name: Labs collected and sent; Complete Time: 01:08 cp 05/10 00:31 Order name: O2 Per Protocol; Complete Time: 01:08 cp 05/10 00:31 Order name: O2 Sat Monitoring; Complete Time: 01:08 cp 05/10 00:32 Order name: Urine Dipstick-Ancillary (obtain specimen); Complete Time: 03:08 cp EC:10 Rate is 73 beats/min. Rhythm is irregularly irregular. QRS interval is prolonged at 120 cp msec. QT interval is normal. T waves are Inverted in leads aVL, V5, V6. Interpreted by me. Reviewed by me. Administered Medications: 01:10 Drug: Albuterol - atroVENT (3:1) (2.5 mg - 0.5 mg) 3 ml Route: Nebulizer; ao 03:08 Follow up: Response: No adverse reaction ao 35 Drug: Magnesium Sulfate 1 grams Route: IVPB; Infused Over: 1 hrs; Site: right forearm; ao 03:08 Follow up: IV Status: Completed infusion; IV Intake: 100ml ao 35 Drug: NS 0.9% 500 ml Route: IV; Rate: bolus; Site: right forearm; ao 03:08 Follow up: IV Status: Completed infusion; IV Intake: 500ml ao 03:19 Drug: Aspirin Chewable Tablet 324 mg Route: PO; ao 05:52 Follow up: Response: No adverse reaction ao 03:40 Drug: Lasix 20 mg Route: IVP; Site: right forearm; ao 05:51 Follow up: Response: No adverse reaction ao Disposition: 05/10/18 03:15 Hospitalization ordered by Praveena Ansari for Observation. Preliminary diagnosis are Unspecified combined systolic (congestive) and diastolic (congestive) heart failure, Unspecified atrial fibrillation. - Bed requested for Telemetry/MedSurg (observation). - Status is Observation. bp - Condition is Stable. - Problem is an acute exacerbation. - Symptoms have improved. UTI on Admission? No Addendum: 05/13/2018 07:12 Co-signature as Attending Physician, Joseph Bhatia MD. r n Signatures: Dispatcher [employer] EDMS Sarah Puente RN RN kl Nieto, Roman, MD MD rn Page, Corey, PA PA cp Ortiz, Alex, RN RN ao Peltier, Brian, RN RN bp Corrections: (The following items were deleted from the chart) 05/10 03:04 02:45 Normal except: GLUC 125; CRE 1.40; GFR 50. cp cp 05:22 03:15 Hospitalization Ordered by Praveena Ansari MD for Observation. Preliminary kl diagnosis is Unspecified combined systolic (congestive) and diastolic (congestive) heart failure; Unspecified atrial fibrillation. Bed requested for Telemetry/MedSurg (observation). Status is Observation. Condition is Stable. Problem is an acute exacerbation. Symptoms have improved. UTI on Admission? No. cp 06:26 01:52 Home Meds: None; ao ao 07:40 05:22 05/10/2018 03:15 Hospitalization Ordered by Praveena Ansari MD for Observation. bp Preliminary diagnosis is Unspecified combined systolic (congestive) and diastolic (congestive) heart failure; Unspecified atrial fibrillation. Bed requested for Telemetry/MedSurg (observation). Status is Observation. Condition is Stable. Problem is an acute exacerbation. Symptoms have improved. UTI on Admission? No. kl
[2018-05-10] MEDS ORDERED: ASPIRIN 81 MG CHEWABLE TABLET ONE (03:20)
[2018-05-10] MEDS ORDERED: FUROSEMIDE 20 MG/ 2ML VIAL ONE (03:35)
[2018-05-10] MEDS ORDERED: ONDANSETRON 4 MG/2 ML VIAL IV PRN (04:07)
[2018-05-10] MEDS ORDERED: ALBUTEROL 2.5 MG/3 ML NEB SOL NEB PRN (04:07)
[2018-05-10] MEDS ORDERED: IPRATROPIUM BROM 0.5MG/2.5ML NEB PRN (04:07)
[2018-05-10] MEDS ORDERED: ACETAMINOPHEN 500 MG TAB PO PRN (04:07)
[2018-05-10 05:09] LABS: Urine Blood TRACE (NEG); Urine Glucose NEGATIVE (NEG); Urine Protein 1+ (NEG); Urine pH 5.5 (5.0-7.0)
[2018-05-10] MEDS ORDERED: INFLUENZA VACCINE (for 3y+) 0.5 ML DOSE IMVAC ONE (08:00)
[2018-05-10] MEDS ORDERED: PNEUMOCOCCAL VACCINE 0.5 ML IMVAC ONE (08:00)
--- NOTE | 2018-05-10 08:28 | RAD REPORT ---
EXAM DESCRIPTION: RAD - Chest Single View - 05/10/2018 1:29 am CLINICAL HISTORY: Cough, difficulty breathing COMPARISON: April 05 TECHNIQUE: AP portable chest image was obtained 0116 hours . FINDINGS: No peripheral consolidation or mass. Cardiomegaly is present. Interstitial markings are di ffusely prominent but slightly less pronounced than seen previously. Central vasculature remains prom inent. Trachea is midline. No measurable pleural effusion and no pneumothorax. No acute bony abnormal ity seen. No acute aortic findings suspected. IMPRESSION: Mild CHF/ volume overload pattern is present but less pronounced than seen April 05.
[2018-05-10] MEDS ORDERED: APIXABAN 5 MG TABLET PO SCH (09:00)
[2018-05-10] MEDS: FUROSEMIDE 20 MG/ 2ML VIAL IV SCH (09:00)
--- NOTE | 2018-05-10 09:00 | EKG ---
Test Date: 2018-05-10 Test Time: 01:02:29 Proofsheet Corrector: GERMÁN MEASUREMENT RESULTS: Intervals: Rate: 73 [place]: QRSD: 120 QT: 426 QTc: 469 [place]: P: [place]: QRS: -65 T: 177 INTERPRETIVE STATEMENTS: Atrial fibrillation Left anterior fascicular block Left ventricular hypertrophy with QRS widening ST & T wave abnormality, consider lateral ischemia Abnormal ECG Compared to ECG 04/05/2018 01:59:18 Incomplete right bundle-branch block no longer present ST (T wave) deviation still present Possible ischemia still present Electronically Signed On 05-10-18 08:59:59 CDT by Raul Hdez
[2018-05-10] MEDS ORDERED: ENOXAPARIN 80 MG/0.8 ML SQ ONE (10:00)
[2018-05-10] MEDS ORDERED: MORPHINE 2 MG/ML SYR IV PRN (11:57)
[2018-05-10] MEDS ORDERED: MORPHINE 2 MG/ML SYR ONE (12:07)
--- NOTE | 2018-05-10 13:21 | ECHO ---
HEIGHT: 5 ft 8 in WEIGHT: 175 lb 0 oz DATE OF STUDY: 05/10/[address]: Raul Hdez MD 2-DIMENSIONAL: YES M.MODE: YES DOPPLER: YES COLOR FLOW: YES TDS: NO PORTABLE: NO DEFINITY: NO BUBBLE STUDY: NO DIAGNOSIS: AORTIC VALVE DISEASE CARDIAC HISTORY: CATHERIZATION: NO SURGERY: NO PROSTHETIC VALVE: NO PACEMAKER: NO MEASUREMENTS (cm) DIASTOLIC (NORMALS) SYSTOLIC (NORMALS) IVSd 1.2 (0.6-1.2) LA Diam 4.1 (1.9-4.0) LVEF 63% LVIDd 4.7 (3.5-5.7) LVIDs 3.1 (2.0-3.5) %FS 34% LVPWd 1.3 (0.6-1.2) Ao Diam 3.9 (2.0-3.7) 2 DIMENSIONAL ASSESSMENT: RIGHT ATRIUM: NORMAL LEFT ATRIUM: DILATED RIGHT VENTRICLE: NORMAL LEFT VENTRICLE: LEFT VENTRICULAR HYPERTROPHY TRICUSPID VALVE: NORMAL MITRAL VALVE: NORMAL PULMONIC VALVE: NORMAL AORTIC VALVE: SCLEROSIS PERICARDIAL EFFUSION: NONE AORTIC ROOT: NORMAL LEFT VENTRICULAR WALL MOTION: NORMAL DOPPLER/COLOR FLOW: MILD AORTIC, MITRAL AND TRICUSPID REGURGITATION. NORMAL RIGHT VENTRICULAR SYSTOLIC PRESSURE. NO SIGN OF AORTIC STENOSIS. COMMENTS: NORMAL LEFT VENTRICULAR EJECTION FRACTION. LEFT VENTRICULAR HYPERTROPHY. DILATED LEFT ATRIUM. AORTIC SCLEROSIS WITH NO AORTIC STENOSIS. MILD AORTIC, MITRAL AND TRICUSPID REGURGITATION. TECHNOLOGIST: Fly BOWENS
--- NOTE | 2018-05-10 13:58 | CON ---
History Of Present Illness: Mr. Quiros is 67. He came to the hospital with pain in the chest, troub le breathing, tightness in the chest. He was in the hospital roughly 1 month ago, and an echocardiog kyrie did not show any significant findings, and he was released for an outpatient workup. [facility], takes Eliquis 5 b.i.d. He also takes Lipitor. Those are his only 2 prescription m edicines. He was a cigarette smoker until 1 month ago. He has no allergies. He does not have diabe shay or hypertension. The chest pain, he has been having, has been there for about a month. There is exertional intolerance, tightness in the chest, shortness of breath. Has no fevers, chills, sweats, weight loss, nausea, or vomiting. Physical Examination: Vital signs: Five feet and 8 inches, 175 pounds, body mass index 26. HEENT: Normal. Lungs: Clear. Heart: Reveals an irregularly irregular rhythm. There is a harsh systolic murmur that sounds like a ortic stenosis. There is a faint blowing diastolic murmur that sounds like aortic regurgitation. Abdomen: Soft. Extremities: Diminished distal pulses. Mild edema. No cyanosis or clubbing. Laboratory Data: His electrocardiogram shows atrial fibrillation, left anterior fascicular block, LV H, ST and T-wave abnormality that is nonspecific. His chest x-ray shows mild CHF or volume overload pattern. Impression: The patient probably has significant coronary artery disease. I am not sure how signifi cant the aortic stenosis is. The last echo did not even mention it, but I feel certain there is at east some degree of stenosis, it is probably in the [id number] range, but I am concerned that t he patient has underlying coronary artery disease. I have recommended a cardiac cath to him. He has eaten today and he has received Eliquis recently, so today would not be a good day to do it. At thi s point, it might be better to wait until Thursday to do it. If he has received a dose today, we ca n have him on heparin between now and when that is done. I think the patient needs a cardiac cath an d repeat echocardiogram. Thank you very much for your kind referral of Mr. Denilson Quiros. I will follow him with you. SH/MODL Voice ID: [id number] Report ID: [id number]
[2018-05-10] MEDS: ACETYLCYST 20% 800 MG/4 ML VIAL PO SCH (20:49)
[2018-05-10] MEDS: ATORVASTATIN 40 MG TAB PO SCH (20:49)
--- NOTE | 2018-05-11 03:41 | HP ---
Date of Admission: 05/10/2018 History Of Present Illness: The patient is a 67-year-old male who presented to the emergency room wi th complaint of chest pain in the anterior chest area along with shortness of breath. It has been go ing off and on with him for about a month. The patient said that at this time his symptoms were more pronounced, so he came to the emergency room. The patient had no nausea, no vomiting. He voiced no other complaints. Review of Systems: Cardiovascular: The patient denies claudication and peripheral vascular disease symptoms. He has no complaints. Respiratory: As above. Gastrointestinal: No complaints. Genitourinary: No complaints. Skeletomuscular: No complaint. Neurological: No complaint. Past Medical History: 1.Hyperlipidemia. 2.Atrial fibrillation diagnosed about a month ago. Social History: He stopped smoking about a month ago. No alcohol or IV drug abuse history. Family History: Noncontributory. Medications: Include Eliquis 5 mg p.o. b.i.d. and atorvastatin one p.o. daily. Physical Examination: Vital Signs: Blood pressure 120/80, pulse 75, temperature 97.8. Heart: Regular rate and rhythm. Chest: Clear to auscultation. Abdomen: Soft, nontender. No hepatosplenomegaly. Bowel sounds are normoactive. Extremities: No edema. No cyanosis. Peripheral pulses are felt. Neurological Examination: Alert, oriented, nonfocal, grossly intact. Imaging Studies: Chest x-ray, mild CHF, volume overload. EKG showed atrial fibrillation, left anter ior fascicular block, left ventricular hypertrophy. QRS widening and nonspecific ST-T wave abnormali ty in the lateral leads. CBC nonrevealing. Chemistry: BUN 14, creatinine 1.4, glucose 125, calcium 8.4. Troponin 0.11 and 0.12. BNP 6214. Procalcitonin less than 0.05. Assessment And Plan: 1.Symptoms of chest pain and shortness of breath with elevated troponin. I think the patient has co ronary artery disease. I have asked Cardiology to see the patient and we will put him on telemetry a nd monitor him. We will continue him on his atorvastatin. The patient's Eliquis has been held for n ow because he is scheduled to have heart catheterization. The patient has been put on Lovenox, was g iven Lovenox 80 mg subcutaneous. 2.Questionable history of congestive heart failure. The patient had recent echo, it did not show de creased ejection fraction, however, we went ahead and put him on IV Lasix for now until the results f rom heart catheterization come out and more recommendations from Cardiology. The patient is a previo us smoker, who has been put on beta-2 agonists breathing treatments. Look orders for details. MFS/MODL Voice ID: [id number]
[2018-05-11 07:04] LABS: Potassium 4.2 mmol/L (3.5-5.1)
[2018-05-11 07:07] LABS: Absolute Lymphocytes (CBC) 1.4 K/uL (0.7-4.9); Absolute Monocytes 0.8 K/uL (0.1-1.3); Absolute Neutrophil 4.2 K/uL (1.8-8.0); Basophils % 0.8 % (0-1.3); Eosinophils % 5.4 % (0-4.4); Lymphocytes % 20.5 % (15.3-44.8); MCH 28.1 pg (27.0-35.0); MCV 83.2 fL (80-100); MPV 8.3 fL (7.6-11.3); Monocytes % 11.9 % (3.3-12.3); RBC Red Blood Cell Count 5.53 M/uL (4.33-5.43)
[2018-05-11] MEDS: ACETYLCYST 20% 800 MG/4 ML VIAL PO SCH ×3 (09:00→21:13)
[2018-05-11] MEDS: FUROSEMIDE 20 MG/ 2ML VIAL IV SCH ×2 (09:00→16:50)
[2018-05-11] MEDS ORDERED: HEPA 1000U/500MLS 1,000 UNIT/500 ML BAG IV ONE ×2 (10:12→11:09)
[2018-05-11] MEDS ORDERED: NA CHLORIDE 0.9% 500 ML ONE (10:33)
[2018-05-11] MEDS ORDERED: ATROPINE SULF 1 MG/10 ML SYR IV ONE (10:34)
[2018-05-11] MEDS ORDERED: MIDAZOLAM HCL 2 MG/2 ML INJ ONE (10:34)
[2018-05-11] MEDS ORDERED: NA CHLORIDE 0.9% 50 ML ONE (10:34)
[2018-05-11] MEDS ORDERED: FENTANYL CITR 100 MCG/2 ML ONE (10:34)
[2018-05-11] MEDS ORDERED: PRASUGREL (EFFIENT) 10 MG TAB ONE (11:34)
[2018-05-11] MEDS: ATORVASTATIN 40 MG TAB PO SCH (21:13)
--- NOTE | 2018-05-11 22:32 | OP ---
Surgeon: Rishabh Webster MD Sofa Inspector: Afshan Richter. The patient received Angiomax and Effient during the procedure. Starting tomorrow, he will be on Eff ient, Lipitor, beta-connie, and he will resume his Eliquis for his atrial fibrillation. Total consc ious sedation was [address] Ansari's service on 05/10/2018 with elevated troponin. History Of Present Illness: Mr. Quiros is 67. He was admitted to the [facility] this morning as an in patient for left heart catheterization. Indication: Elevated troponin, atrial fibrillation. Procedure In Detail: Mr. Quiros had an echocardiogram yesterday showing LVH with aortic sclerosis, b ut no stenosis. He was given in the [facility] 2 mg of Versed for IV sedation, had a 6-Bulgarian sheath i n the right common femoral artery. Angio-Seal was used to close the case. Catheters that were used were 6-Bulgarian Berto left and right to do the diagnostic catheterization. He was found to have a 50 % LAD and 80% circumflex stenosis. He had a mild plaquing in the PDA off the RCA. Aortic root was d one showing 1+ AR, 1+ MR, left ventricular hypertrophy. The aortic valve was not crossed, appeared t o be very calcified. I could not cross the lesion using pigtail catheters, using JR4 with Melissa wir e and J-wire. I will have to review the echo in that regard. The patient underwent a stent primary of the circumflex using 2.5 x 12 Synergy with 0% residual. A [place] wire was used 0.14 extra support . XB 3.5 side hole was used. A 6-Bulgarian guide was used. There were no complications. Estimated Blood Loss: 5 cc. Postoperative Diagnosis: Coronary artery disease status post successful stent of the circumflex, mod erate left anterior descending disease, moderate patent ductus arteriosus disease, aortic sclerosis, left ventricular hypertrophy. NB/MODL Voice ID: [id number] Report ID: [id number]
--- NOTE | 2018-05-12 08:20 | PN ---
Subjective: The patient has no complaint. No chest pain. Objective: Vital Signs: Blood pressure 130/85, pulse 58, temperature 97.8. Heart: Regular rate and rhythm. Chest: Clear to auscultation. Abdomen: Soft, benign. Neurological: Alert and oriented. Grossly intact. Extremities: No edema. No cyanosis. Laboratory Data: CBC noted. Chemistry; BUN 13, creatinine 1.30, GFR 55. Troponin, last troponin wa s 0.12. BNP 7647. Procalcitonin less than 0.05. Assessment And Plan: 1.Chest pain with increased troponin. Subendocardial infarction is likely, the patient will have he art catheterization and possibly placement today by Cardiology. 2.Atrial fibrillation. Rate is controlled. I think we can resume Eliquis after his heart catheteri zation. 3.Rest of medical problems, stable. MFS/MODL Voice ID: [id number] Report ID: [id number]
[2018-05-12] MEDS ORDERED: CLOPIDOGREL 75 MG TABLET PO ONE (09:47)
[2018-05-12] MEDS ORDERED: ASPIRIN EC 81 MG TAB PO ONE (09:48)
[2018-05-12] MEDS: ACETYLCYST 20% 800 MG/4 ML VIAL PO SCH (09:59)
[2018-05-12] MEDS: FUROSEMIDE 20 MG/ 2ML VIAL IV SCH (09:59)
[2018-05-12] MEDS ORDERED: PNEUMOCOCCAL VACCINE 0.5 ML IMVAC ONE (10:00)
[2018-05-12] MEDS ORDERED: INFLUENZA VACCINE (for 3y+) 0.5 ML DOSE IMVAC ONE (10:00)
[2018-05-13] MEDS ORDERED: FAMOTIDINE 20 MG TAB PO SCH (09:00)
--- NOTE | 2018-05-16 11:13 | PN ---
Date of Progress Note: 05/12/2018 Mr. Quiros had been admitted with CHF, atrial fibrillation, positive troponin. I did a heart cathete rization on him on 05/11/2018. The patient had severe aortic sclerosis by echocardiography. He had coronary artery disease with approximately 40% LAD stenosis. He also had an 80% to 90% circumflex st enosis. This was stented. Overnight, the patient did really well. No complications. He will be go ing home today on beta-connie, statin, Effient, and he will be back on his Eliquis as well for his a trial fibrillation, which has been taking chronically. We will see him in the office in the near fut ure. We will follow up on his LAD stenosis and his aortic sclerosis in the near future. He will als o need a carotid Doppler eventually. He was told to come see me in the office in 2 weeks. SADAF/CARL Voice ID: [id number] Report ID: [id number]
== END 2018-05-12 13:13 | disposition home or self-care (01) ==
LOC: ER 00:07 → ERHOLD 03:15 → 2ND 07:32
PROVIDERS: ADMIT Internal Medicine; ATTEND Internal Medicine
DX: I25.10 Atherosclerotic heart disease of native coronary artery without angina pectoris (principal); I70.0 Atherosclerosis of aorta; I51.7 Cardiomegaly; Q25.0 Patent ductus arteriosus; E78.5 Hyperlipidemia, unspecified; I48.91 Unspecified atrial fibrillation; Z87.891 Personal history of nicotine dependence; Z23 Encounter for immunization
CPT/HCPCS: 36415 ×2; 71045; 80048 ×2; 80076; 81003; 83735; 83880 ×2; 84145; 84484 ×3; 85025 ×2; 85347 ×3; 85610; 87040 ×2; 87804 ×2; 90670; 93005; 93306; 93454; 94640; 96365; 96366; 96375; 99285; C1725; C1760; C1893; C9600; G0008; G0009; G0378 ×2; J0583; J1650; J1940 ×3; J2250; J2270; J3010; J3475; Q2035

== ENCOUNTER 2019-02-04 00:04 | Inpatient (IN) | payer OTHER ==
[2019-02-04] MEDS ORDERED: ONDANSETRON 4 MG/2 ML VIAL ONE (01:19)
[2019-02-04] MEDS ORDERED: MORPHINE 4 MG/ML SYR ONE (01:19)
[2019-02-04] MEDS ORDERED: NA CHLORIDE 0.9% 1,000 ML ONE (01:19)
[2019-02-04 01:29] LABS: Absolute Lymphocytes (CBC) 0.9 K/uL (0.7-4.9); Basophils % 0.2 % (0-1.3); Hematocrit 48.5 % (39.6-49.0); Lymphocytes % 7.8 % (15.3-44.8); RBC Red Blood Cell Count 6.06 M/uL (4.33-5.43)
[2019-02-04 01:46] LABS: Albumin 3.4 g/dL (3.4-5.0); Bilirubin Total 0.9 mg/dL (0.2-1.0); Potassium 4.2 mmol/L (3.5-5.1); Protein, Total 7.8 g/dL (6.4-8.2); Uric Acid 7.9 mg/dL (3.5-7.2)
[2019-02-04] MEDS ORDERED: LIDOCAINE 2% MPF 5 ML VIAL ONE (01:48)
[2019-02-04] MEDS ORDERED: KETOROLAC 30 MG/ML INJ ONE (01:48)
[2019-02-04] MEDS ORDERED: COLCHICINE 0.6 MG TAB ONE (01:48)
[2019-02-04] MEDS ORDERED: CEFAZOLIN/SWI 1gm 1 GM/10 ML SYR ONE (02:35)
[2019-02-04 03:41] LABS: Body Fluid Source SYNOVIAL; Color of fluid Yellow (COLORLESS)
[2019-02-04 03:42] LABS: Appearance TURBID (CLEAR)
[2019-02-04 03:55] LABS: Body Fluid WBC 117500 /mm^3
[2019-02-04] MEDS ORDERED: METHYLPREDNISOLONE 125 MG INJ ONE (04:13)
--- NOTE | 2019-02-04 05:06 | EDPHYS ---
Physician Documentation [facility] Name: Denilson Quiros Age: 68 yrs Sex: Male : 1950 Arrival Date: 02/04/2019 Time: 00:06 Bed 23 Private MD: Praveena Ansari F ED Physician Jairo Leger HPI: 02/04 00:49 This 68 yrs old Male presents to ER via Ambulatory with complaints of R Arm osmany Swelling. 00:49 The patient or guardian complains of decreased range of motion, pain, swelling, osmany tenderness. The complaints affect the right elbow. Context: The problem was sustained at an unknown location. Onset: The symptoms/episode began/occurred 1 day(s) ago. Treatment prior to arrival includes: no previous treatment. Modifying factors: The symptoms are alleviated by nothing. remaining still, the symptoms are aggravated by movement. Associated signs and symptoms: The patient has no apparent associated signs or symptoms. The patient has not experienced similar symptoms in the past. Historical: - Allergies: 06:42 Levaquin; bb - Home Meds: 00:23 atorvastatin Oral [Active]; Eliquis Oral [Active]; bb - PMHx: 00:23 Atrial Fib; Cancer; Hyperlipidemia; CAD; heart stent; bb - PSHx: 00:23 Heart stents; bb - Immunization history:: Adult Immunizations up to date. - Social history:: Smoking status: Patient/guardian denies using tobacco. - Ebola Screening: : No symptoms or risks identified at this time. - Family history:: not pertinent. ROS: 00:49 Constitutional: Negative for fever, chills, and weight loss, Eyes: Negative for injury, osmany pain, redness, and discharge, ENT: Negative for injury, pain, and discharge, Neck: Negative for injury, pain, and swelling, Cardiovascular: Negative for chest pain, palpitations, and edema, Respiratory: Negative for shortness of breath, cough, wheezing, and pleuritic chest pain, Abdomen/GI: Negative for abdominal pain, nausea, vomiting, diarrhea, and constipation, Back: Negative for injury and pain, : Negative for injury, bleeding, discharge, and swelling, Skin: Negative for injury, rash, and discoloration, Neuro: Negative for headache, weakness, numbness, tingling, and seizure, Psych: Negative for depression, anxiety, suicide ideation, homicidal ideation, and hallucinations, Allergy/Immunology: Negative for hives, rash, and allergies, Endocrine: Negative for neck swelling, polydipsia, polyuria, polyphagia, and marked weight changes, Hematologic/Lymphatic: Negative for swollen nodes, abnormal bleeding, and unusual bruising. 00:49 MS/extremity: Positive for decreased range of motion, erythema, pain, swelling, tenderness, of the right antecubital area and right elbow. Exam: 00:49 Constitutional: This is a well developed, well nourished patient who is awake, alert, osmany and in no acute distress. Head/Face: Normocephalic, atraumatic. Eyes: Pupils equal round and reactive to light, extra-ocular motions intact. Lids and lashes normal. Conjunctiva and sclera are non-icteric and not injected. Cornea within normal limits. Periorbital areas with no swelling, redness, or edema. ENT: Nares patent. No nasal discharge, no septal abnormalities noted. Tympanic membranes are normal and external auditory canals are clear. Oropharynx with no redness, swelling, or masses, exudates, or evidence of obstruction, uvula midline. Mucous membranes moist. Neck: Trachea midline, no thyromegaly or masses palpated, and no cervical lymphadenopathy. Supple, full range of motion without nuchal rigidity, or vertebral point tenderness. No Meningismus. Chest/axilla: Normal chest wall appearance and motion. Nontender with no deformity. No lesions are appreciated. Cardiovascular: Regular rate and rhythm with a normal S1 and S2. No gallops, murmurs, or rubs. Normal PMI, no JVD. No pulse deficits. Respiratory: Lungs have equal breath sounds bilaterally, clear to auscultation and percussion. No rales, rhonchi or wheezes noted. No increased work of breathing, no retractions or nasal flaring. Abdomen/GI: Soft, non-tender, with normal bowel sounds. No distension or tympany. No guarding or rebound. No evidence of tenderness throughout. Back: No spinal tenderness. No costovertebral tenderness. Full range of motion. Male : Normal genitalia with no discharge or lesions. Skin: Warm, dry with normal turgor. Normal color with no rashes, no lesions, and no evidence of cellulitis. Neuro: Awake and alert, GCS 15, oriented to person, place, time, and situation. Cranial nerves II-XII grossly intact. Motor strength 5/5 in all extremities. Sensory grossly intact. Cerebellar exam normal. Normal gait. Psych: Awake, alert, with orientation to person, place and time. Behavior, mood, and affect are within normal limits. 00:49 Musculoskeletal/extremity: Extremities: decreased ROM, erythema, pain, swelling, tenderness, decreased ROM, erythema, pain, swelling, tenderness. Vital Signs: 00:23 BP 161 / 89; Pulse 75; Resp 16 S; Temp 97.9(O); Pulse Ox 97% on R/A; Weight 99.79 kg bb (R); Height 5 ft. 8 in. (172.72 cm) (R); Pain 10/10; 01:00 BP 158 / 90; Pulse 71; Resp 16; Pulse Ox 95% on R/A; rv 01:30 BP 143 / 88; Pulse 68; Resp 16; Pulse Ox 96% on R/A; rv 02:00 BP 156 / 94; Pulse 69; Resp 16; Pulse Ox 98% on R/A; rv 02:30 BP 145 / 94; Pulse 67; Resp 15; Temp 98.4; Pulse Ox 95% on R/A; rv 03:01 BP 151 / 91; Pulse 65; Resp 16; Pulse Ox 94% on R/A; rv 04:04 BP 140 / 79; Pulse 66; Resp 16 S; Temp 98.4(O); Pulse Ox 95% on R/A; Pain 3/10; bb 05:36 BP 142 / 78; Pulse 60; Resp 16 S; Temp 98(O); Pulse Ox 96% on R/A; bb 06:30 BP 102 / 77; Pulse 66; Resp 16 S; Pulse Ox 96% on R/A; bb 00:23 Body Mass Index 33.45 (99.79 kg, 172.72 cm) Procedures: 02:15 Joint Treatment: Aspiration of right elbow using 18 gauge needle, Removed yellow fluid, osmayn Dressed with band aid, Patient tolerated well. MDM: 00:33 Patient medically screened. [facility] 00:52 Data reviewed: vital signs, nurses notes, lab test result(s), radiologic studies, plain osmany films. 02/04 00:49 Order name: CBC with Diff [facility] 02/04 00:49 Order name: Comprehensive Metabolic Panel; Complete Time: 01:56 [facility] 02/04 00:49 Order name: Sed Rate [facility] 02/04 00:49 Order name: Uric Acid; Complete Time: 01:56 [facility] 02/04 03:02 Order name: Body Fluid Cell Count; Complete Time: 03:58 [facility] 02/04 03:02 Order name: Miscellaneous Test Lab [facility] 02/04 00:49 Order name: Elbow Right 3 View XRAY [facility] 02/04 03:02 Order name: Body Fluid Crystals; Complete Time: 03:40 [facility] 02/04 03:02 Order name: Body Fluid Culture [facility] 02/04 05:06 Order name: Chest Single View XRAY [facility] 02/04 05:06 Order name: PT-INR [facility] 02/04 05:06 Order name: Ptt, Activated [facility] 02/04 00:49 Order name: Ice pack; Complete Time: 01:01 [facility] 02/04 01:23 Order name: Dressing - Wound; Complete Time: 01:36 [facility] 02/04 01:23 Order name: Gloves, Sterile; Complete Time: 01:36 [facility] 02/04 05:06 Order name: EKG; Complete Time: 05:07 [facility] 02/04 05:14 Order name: CONS Physician Consult [facility] 02/04 01:23 Order name: Setup Suture Tray; Complete Time: 01:36 [facility] 02/04 02:17 Order name: Sling; Complete Time: 02:22 [facility] 02/04 05:06 Order name: EKG - Nurse/Tech; Complete Time: 05:29 [facility] Administered Medications: Discontinued: levofloxacin 500 mg 100 ml IVPB once over 60 mins 01:21 Drug: NS 0.9% 1000 ml Route: IV; Rate: 1 bolus; Site: left antecubital; rv 01:22 Drug: morphine 4 mg Route: IVP; Site: left antecubital; rv 01:51 Follow up: Response: Pain is decreased rv 01:22 Drug: Zofran 4 mg Route: IVP; Site: left antecubital; rv 01:51 Follow up: Response: No adverse reaction rv 01:51 Drug: Colcrys 1.2 mg Route: PO; rv 02:41 Follow up: Response: No adverse reaction rv 02:00 Drug: TORadol 30 mg Route: IVP; Site: left antecubital; rv 02:41 Follow up: Response: Pain is decreased rv 02:20 Drug: ceFAZolin 1 grams Volume: 50 ml; Route: IVPB; Infused Over: 30 mins; Site: left rv antecubital; 02:41 Follow up: IV Status: Completed infusion rv 02:40 Drug: Lidocaine (2 %) 5 ml {Note: to left elbow administered by Dr Leger.} Volume: 5 bb ml; Route: Infiltration; 02:50 Drug: Colcrys 0.6 mg Route: PO; rv 03:50 Follow up: Response: No adverse reaction bb 04:03 Drug: SOLU-Medrol 125 mg Route: IVP; Site: left antecubital; bb 05:07 Follow up: Response: No adverse reaction bb 05:34 Drug: Clindamycin 900 mg Route: IVPB; Infused Over: 30 mins; Site: left antecubital; bb 06:18 Follow up: IV Status: Completed infusion; IV Intake: 50ml bb 06:22 Drug: levofloxacin 500 mg Volume: 100 ml; Route: IVPB; Infused Over: 60 mins; Site: bb left antecubital; 06:46 Drug: vancoMYCIN 1 grams Route: IVPB; Infused Over: 2 hrs; Site: left antecubital; bb 06:47 Follow up: IV Status: Infusion continued upon admission bb 06:46 Drug: Benadryl 25 mg {Note: administered by Rush Brown RN.} Route: IVP; Site: left bb antecubital; 06:47 Follow up: Response: medication administered on transfer to room 211 Disposition: 02/04/19 05:05 Hospitalization ordered by Praveena Ansari for Inpatient Admission. Preliminary diagnosis are Effusion, right elbow - septic arthritis, Gout. - Bed requested for Telemetry/MedSurg (Inpatient). - Status is Inpatient Admission. bb - Condition is Stable. - Problem is new. - Symptoms have improved. UTI on Admission? No Signatures: Dispatcher [employer] EDRI Madison García RN RN Jairo Espinosa MD MD cha Ballard, Brenda RN RN bb Arian Jesus RN RN rv Corrections: (The following items were deleted from the chart) 05:17 05:05 Hospitalization Ordered by Praveena Ansari MD for Inpatient Admission. Preliminary diagnosis is Effusion, right elbow. Bed requested for Telemetry/MedSurg (Inpatient). Status is Inpatient Admission. Condition is Stable. Problem is new. Symptoms have improved. UTI on Admission? No. osmany 05:18 05:17 02/04/2019 05:05 Hospitalization Ordered by Praveena Ansari MD for Inpatient osmany Admission. Preliminary diagnosis is Effusion, right elbow. Bed requested for Telemetry/MedSurg (Inpatient). Status is Inpatient Admission. Condition is Stable. Problem is new. Symptoms have improved. UTI on Admission? No. mw 06:42 00:23 Allergies: No Known Allergies; bb bb 06:48 05:18 02/04/2019 05:05 Hospitalization Ordered by Praveena Ansari MD for Inpatient bb Admission. Preliminary diagnosis is Effusion, right elbow - septic arthritis; Gout. Bed requested for Telemetry/MedSurg (Inpatient). Status is Inpatient Admission. Condition is Stable. Problem is new. Symptoms have improved. UTI on Admission? No. osmany
--- NOTE | 2019-02-04 05:06 | ER ---
Nurse's Notes [facility] Name: Denilson Quiros Age: 68 yrs Sex: Male : 1950 Arrival Date: 02/04/2019 Time: 00:06 Bed 23 Private MD: Praveena Ansari F Diagnosis: Effusion, right elbow-septic arthritis;Gout Presentation: 02/04 00:20 Presenting complaint: Patient states: he has pain, redness and swelling to his right bb elbow x 2 days pain is 10/10 and he is unable to straighten his arm. Transition of care: patient was not received from another setting of care. Onset of symptoms was February 01, 2019. Risk Assessment: Do you want to hurt yourself or someone else? Patient reports no desire to harm self or others. Initial Sepsis Screen: Does the patient meet any 2 criteria? No. Patient's initial sepsis screen is negative. Does the patient have a suspected source of infection? No. Patient's initial sepsis screen is negative. Care prior to arrival: None. 00:20 Method Of Arrival: Ambulatory bb 00:20 Acuity: CHUCKY 3 bb Historical: - Allergies: 06:42 Levaquin; bb - Home Meds: 00:23 atorvastatin Oral [Active]; Eliquis Oral [Active]; bb - PMHx: 00:23 Atrial Fib; Cancer; Hyperlipidemia; CAD; heart stent; bb - PSHx: 00:23 Heart stents; bb - Immunization history:: Adult Immunizations up to date. - Social history:: Smoking status: Patient/guardian denies using tobacco. - Ebola Screening: : No symptoms or risks identified at this time. - Family history:: not pertinent. Screenin:23 Abuse screen: Denies threats or abuse. Denies injuries from another. Nutritional rv screening: No deficits noted. Tuberculosis screening: No symptoms or risk factors identified. Fall Risk None identified. Assessment: 00:21 General: Appears in no apparent distress. comfortable, Behavior is calm, cooperative. rv Pain: Complains of pain in right arm. Neuro: Level of Consciousness is awake, alert, obeys commands, Oriented to person, place, time, situation. Cardiovascular: Patient's skin is warm and dry. Respiratory: Airway is patent. GI: No signs and/or symptoms were reported involving the gastrointestinal system. : No signs and/or symptoms were reported regarding the genitourinary system. EENT: No signs and/or symptoms were reported regarding the EENT system. Derm: Skin is intact. Musculoskeletal: Swelling present in right arm Reports pain in right arm. 01:42 Reassessment: Patient appears in no apparent distress at this time. Patient and/or rv family updated on plan of care and expected duration. Pain level reassessed. Patient is alert, oriented x 3, equal unlabored respirations, skin warm/dry/pink. patient and family aware of the planned procedure. awaiting for Dr Leger to explain it at bedside. materials prepared at bedside. 04:03 Reassessment: Patient is alert, oriented x 3, equal unlabored respirations, skin bb warm/dry/pink. pt resting quietly, states his right arm is feeling better, awaiting completion of lab results prior to disposition, IV site intact, patent, no erythema or edema noted. Family at bedside. 04:25 Reassessment: pt and family notified Dr Leger called for ortho consult and Dr nakia Rowland to evaluate pt prior to disposition. 04:50 Reassessment: Dr Cornell at bedside for pt evaluation. bb 05:31 Reassessment: pt to be admitted for further evaluation and treatment pt verbalized bb understanding of and agrees to plan of care. 06:28 Reassessment: report called to Daphne BORJA for room 211 awaiting completion of ED orders bb prior to transfer to room. Pt is A\T\O x 4, resp unlabored, IV site intact, patent with fluids infusing, family at bedside. 06:41 Reassessment: pt states his arm is itching left AC is reddened, Levaquin discontinued, bb Dr Leger notified, new orders received, pt medicated see SEP. Vital Signs: 00:23 BP 161 / 89; Pulse 75; Resp 16 S; Temp 97.9(O); Pulse Ox 97% on R/A; Weight 99.79 kg bb (R); Height 5 ft. 8 in. (172.72 cm) (R); Pain 10/10; 01:00 BP 158 / 90; Pulse 71; Resp 16; Pulse Ox 95% on R/A; rv 01:30 BP 143 / 88; Pulse 68; Resp 16; Pulse Ox 96% on R/A; rv 02:00 BP 156 / 94; Pulse 69; Resp 16; Pulse Ox 98% on R/A; rv 02:30 BP 145 / 94; Pulse 67; Resp 15; Temp 98.4; Pulse Ox 95% on R/A; rv 03:01 BP 151 / 91; Pulse 65; Resp 16; Pulse Ox 94% on R/A; rv 04:04 BP 140 / 79; Pulse 66; Resp 16 S; Temp 98.4(O); Pulse Ox 95% on R/A; Pain 3/10; bb 05:36 BP 142 / 78; Pulse 60; Resp 16 S; Temp 98(O); Pulse Ox 96% on R/A; bb 06:30 BP 102 / 77; Pulse 66; Resp 16 S; Pulse Ox 96% on R/A; bb 00:23 Body Mass Index 33.45 (99.79 kg, 172.72 cm) bb ED Course: 00:06 Patient arrived in ED. ds1 00:06 Praveena Ansari MD is Private Physician. ds1 00:21 Arian Jesus, JONH is Primary Nurse. rv 00:21 Triage completed. bb 00:23 Patient has correct armband on for positive identification. Bed in low position. Call rv light in reach. Side rails up X 1. Pulse ox on. NIBP on. 00:23 Patient placed in the treatment room, on a stretcher, on pulse oximetry, Patient rv notified of wait time. 00:27 Warm blanket given. Pillow given. Ice pack to injury. rv 00:33 Jairo Leger MD is Attending Physician. osmany 01:08 X-ray completed. Portable x-ray completed in exam room. Patient tolerated procedure kw well. 01:15 Initial lab(s) drawn, by me, sent to lab. Inserted saline lock: 22 gauge in left lt1 antecubital area, using aseptic technique. 01:35 Elbow Right 3 View XRAY In Process Unspecified. EDMS 02:39 right elbow. which returned 4 ml's. cloudy sadie fluid, Specimen sent to lab. Set up rv for procedure. Performed by Jairo Leger MD Patient tolerated well. 05:04 Praveena Ansari MD is Hospitalizing Provider. osmany 05:29 Initial lab(s) drawn, by me, sent to lab. EKG done, by ED staff, reviewed by Jairo Leger MD. 05:30 Patient admitted, IV remains in place. bb Administered Medications: Discontinued: levofloxacin 500 mg 100 ml IVPB once over 60 mins 01:21 Drug: NS 0.9% 1000 ml Route: IV; Rate: 1 bolus; Site: left antecubital; rv 01:22 Drug: morphine 4 mg Route: IVP; Site: left antecubital; rv 01:51 Follow up: Response: Pain is decreased rv 01:22 Drug: Zofran 4 mg Route: IVP; Site: left antecubital; rv 01:51 Follow up: Response: No adverse reaction rv 01:51 Drug: Colcrys 1.2 mg Route: PO; rv 02:41 Follow up: Response: No adverse reaction rv 02:00 Drug: TORadol 30 mg Route: IVP; Site: left antecubital; rv 02:41 Follow up: Response: Pain is decreased rv 02:20 Drug: ceFAZolin 1 grams Volume: 50 ml; Route: IVPB; Infused Over: 30 mins; Site: left rv antecubital; 02:41 Follow up: IV Status: Completed infusion rv 02:40 Drug: Lidocaine (2 %) 5 ml {Note: to left elbow administered by Dr Leger.} Volume: 5 bb ml; Route: Infiltration; 02:50 Drug: Colcrys 0.6 mg Route: PO; rv 03:50 Follow up: Response: No adverse reaction bb 04:03 Drug: SOLU-Medrol 125 mg Route: IVP; Site: left antecubital; bb 05:07 Follow up: Response: No adverse reaction bb 05:34 Drug: Clindamycin 900 mg Route: IVPB; Infused Over: 30 mins; Site: left antecubital; bb 06:18 Follow up: IV Status: Completed infusion; IV Intake: 50ml bb 06:22 Drug: levofloxacin 500 mg Volume: 100 ml; Route: IVPB; Infused Over: 60 mins; Site: bb left antecubital; 06:46 Drug: vancoMYCIN 1 grams Route: IVPB; Infused Over: 2 hrs; Site: left antecubital; bb 06:47 Follow up: IV Status: Infusion continued upon admission bb 06:46 Drug: Benadryl 25 mg {Note: administered by Rush Brown RN.} Route: IVP; Site: left bb antecubital; 06:47 Follow up: Response: medication administered on transfer to room 211 bb Intake: 06:18 IV: 50ml; Total: 50ml. bb Outcome: 05:05 Decision to Hospitalize by Provider. osmany 05:30 Instructed on the need for admit. nakia 06:29 Admitted to Tele accompanied by tech, family with patient, via wheelchair, room 211, bb with chart, Report called to Daphne BORJA 06:29 Condition: stable 06:48 Patient left the ED. bb Signatures: Dispatcher [employer] EDMO Jairo Leger MD MD cha Sanford, Demi ds1 Stephanie Mcclendon, RN RN bb Maryam Chaudhary Ronaldo, JONH RN Andie Henderson 1 Corrections: (The following items were deleted from the chart) 06:42 00:23 Allergies: No Known Allergies; bb bb
[2019-02-04] MEDS ORDERED: CLINDAMYCIN 900MG/D5W 900 MG/50 ML IVPB IV ONE (05:53)
[2019-02-04 06:01] LABS: Protime INR 1.07
[2019-02-04] MEDS ORDERED: Levofloxacin500mg IV 500 MG/100 ML BAG IV ONE (06:32)
[2019-02-04] MEDS ORDERED: NA CHLORIDE 0.9% 250 ML ONE (06:47)
[2019-02-04] MEDS ORDERED: VANCOMYCIN 1 GM/VIAL ONE (06:49)
[2019-02-04] MEDS ORDERED: WATER FOR INJ,STERILE 20 ML ONE (06:50)
--- NOTE | 2019-02-04 06:51 | CON ---
History Of Present Illness: This is my first time I am seeing this patient. He is a 68-year-old mal e who has a history of atrial fibrillation. He has been on blood thinners in the past, however, he i s currently not on any formal anticoagulation. Upon speaking with he and his family, he states that he has had right elbow pain for several days and it became so severe that he was unable to sleep genoveva ght and therefore, he came to the emergency department. He denies any fever. He says he did have fu ll range of motion of his elbow before this occurred. After coming to the emergency department, he h ad x-rays taken, which demonstrated no obvious posterior fat pad sign or effusion. Also, no fracture dislocation is noted. However, he does have some arthritic changes. He had an aspiration done by [facility] emergency department and the emergency department feels it was intra-articular and was sent to the lab. Lab demonstrates over 100,000 white cells with increased number of neutrophils. Currently sonny iting the Gram stain, is also sent for culture. Laboratory examination reveals a normal and low sedi mentation rate, also white blood cell count of 11.7. He is currently afebrile. Also, the aspirate d emonstrates calcium pyrophosphate crystals. Physical Examination: On my examination today, he has a Band-Aid on his elbow from the aspiration, which appears to be done in the appropriate portal. There does not appear to be a significant amount of cellulitis. There d oes appear to be an effusion. Pronation and supination of the wrist are actually without pain. Flex ion-extension of the elbow is limited with -30 degrees from full extension, also -20 degrees from ful l flexion. Range of motion throughout the arc does not generate really hardly any pain, it maybe sli ghtly warm and there still appears to be slight effusion of the elbow. This does not appear to be co nsistent with olecranon bursitis. Assessment: A 68-year-old male with cardiac issues, now with fairly obvious crystalline arthropathy. The real question is whether or not this is compounded by septic elbow joint. Arguments for septic elbow joint include a white blood cell count of 110,000, as well as pain. The argument against sept ic joint is the relative rarity of this condition in the elbow, also white blood cell count being nor mal despite 2 days of involvement. Also, patient is afebrile. Also, sedimentation rate is normal de spite 2 days of involvement. Also, the physical examination finding, I would say, is not supportive of septic arthritis with the amount of motion that he has. I believe that his pain may have been fro m the effusion. Plan: At this time, I think that we should admit him at least for observation to ensure that he does not have increasing symptoms and also probably leave him until we get further information regarding the culture. Would recommend placing him on broad-spectrum IV antibiotics while he is here as this m ay help treat this if it is septic. We will also await the results of the Gram stain. If the Gram s sarwat is positive for bacteria, he should be taken to the operating room despite some of his cardiac i ssues and age. If the Gram stain does not demonstrate any bacteria, probably we will admit him and o bserve him with IV antibiotics and place him on medications, which should counteract pseudogout and o bserve him. This was discussed with both the patient and family. They state they understand things as presented. We will currently await the Gram stain. CAITLIN Voice ID: [id number] Report ID: [id number]
[2019-02-04] MEDS ORDERED: DIPHENHYDRAMINE 50 MG/ML VIAL ONE (06:58)
[2019-02-04] MEDS ORDERED: ACETAMINOPHEN 325 MG TABLET PO PRN (07:05)
[2019-02-04] MEDS ORDERED: VANCOMYCIN/NS 1 gm 1 GM/250 ML BAG IVPB SCH (07:05)
[2019-02-04] MEDS ORDERED: ONDANSETRON 4 MG/2 ML VIAL IV PRN (07:05)
[2019-02-04] MEDS ORDERED: MORPHINE 2 MG/ML SYR IV PRN (07:05)
[2019-02-04] MEDS ORDERED: Levofloxacin500mg IV 500 MG/100 ML BAG IV SCH (07:05)
--- NOTE | 2019-02-04 07:49 | RAD REPORT ---
EXAM DESCRIPTION: RAD - Elbow Right 3 View - 02/04/2019 1:11 am CLINICAL HISTORY: Right elbow pain FINDINGS: No fracture or dislocation is seen. The patient is unable to fully extend the elbow. No bony destructive lesions seen. Moderate osteoarth ritis is present.
--- NOTE | 2019-02-04 07:59 | RAD REPORT ---
EXAM DESCRIPTION: Kira Single View02/04/2019 5:28 am CLINICAL HISTORY: Cough COMPARISON: 2016 FINDINGS: An area of subsegmental atelectasis is present in the right lung base Left lung appears clear of acute infiltrate The heart is moderately enlarged
[2019-02-04] MEDS ORDERED: VANCOMYCIN/NS 1 gm 1 GM/250 ML BAG IVPB ONE (09:00)
[2019-02-04] MEDS: CLINDAMYCIN PHOSPHATE 900 MG in NA CHLORIDE 0.9% 50 ML IV SCH ×2 (09:14→17:03)
[2019-02-04] MEDS: NA CHLORIDE 0.9% 1,000 ML IV SCH ×3 (09:15→21:03)
[2019-02-04] MEDS ORDERED: PNEUMOCOCCAL VACCINE 0.5 ML IMVAC ONE (15:00)
--- NOTE | 2019-02-04 15:38 | EKG ---
Test Date: 2019-02-04 Test Time: 05:26:05 Machine Maintenance: RAMIREZ MEASUREMENT RESULTS: Intervals: Rate: 61 DC: QRSD: 94 QT: 460 QTc: 463 [place]: P: DC: QRS: -52 T: 211 INTERPRETIVE STATEMENTS: Junctional rhythm Left axis deviation Left ventricular hypertrophy with repolarization abnormality Cannot rule out Septal infarct, age undetermined Abnormal ECG Compared to ECG 05/10/2018 01:02:29 Junctional rhythm now present Left-axis deviation now present Early repolarization now present Myocardial infarct finding now present Atrial fibrillation no longer present Left anterior fascicular block no longer present ST (T wave) deviation no longer present Possible ischemia no longer present Electronically Signed On 02-04-19 15:35:29 CDT by Rishabh Webster
--- NOTE | 2019-02-04 19:21 | HP ---
Date of Admission: 02/04/2019 History Of Present Illness: The patient is a 68-year-old male, who presented to emergency room with extensive right elbow pain that started happening 1 or 2 days before presentation. However, the pain became so extensive and the patient could not also have full range of motion on that elbow, so he ca me to the emergency room. The patient denied fever or chills. Denied any trauma to his elbow. He o therwise had no other complaint. Review of Systems: Skeletomuscular: As above. Cardiovascular: No complaint. Respiratory: No complaint. Genitourinary: No complaint. Neurologic: No complaint. Gastrointestinal: No complaint. Urogenital: No complaint. Past Medical History: 1.Atrial fibrillation. 2.Hypertension. 3.Coronary artery disease. 4.Hyperlipidemia. 5.The patient has had cardiac coronary stents. 6.The patient has had a history of cancer. Family History: Noncontributing. Social History: No smoking, alcohol, or IV drug abuse history. Medications: Lipitor 40 mg p.o. daily; Pepcid 20 mg p.o. daily; aspirin 81 mg p.o. daily; Eliquis 5 mg p.o. b.i.d., however, the patient states that his mobile unit assistant stopped that for him and he is not taking it. Allergies: LEVOFLOXACIN. Physical Examination: Vital Signs: Blood pressure 140/80, pulse 68, temperature 97.2. Heart: Regular rate and rhythm. Chest: Clear to auscultation. Abdomen: Soft, nontender. No hepatosplenomegaly. Bowel sounds are normoactive. Extremities: No edema. No cyanosis. Peripheral pulses are felt. Neurologic: Alert, oriented, nonfocal. Grossly intact. Skeletomuscular: Right elbow showed soft swelling on the outer side of the elbow area. No much diff erence and warmness and no tenderness. Laboratory Data: Patient's CBC: White cell count 11.7 with neutrophils 83.7, hemoglobin 15.9, hemat ocrit 48.5, platelets 293. Chemistry: BUN 14, creatinine 1.54, GFR 45. Aspiration from the right e lbow showed wbc's 117,500, rbc's 18,500. Gram stain and culture still pending. Assessment And Plan: Right elbow swelling, pain, and decreased range of motion with lots of white ce ll count in the aspirate from that elbow. Infection versus pseudogout is considered. Gram stain and cultures are pending. The patient has been started on clindamycin IV antibiotic and vancomycin pend ing cultures of that fluid. Meanwhile, pseudogout is also considered and should the cultures come ba ck negative, I think it will be a case of pseudogout to where the patient could be put on medications for that. Dr. Cornell, Orthopedic, has been consulted and he recommended the above treatment. Me anwhile, we will continue the patient on his home medicines. Look orders for details. EZIO/CARL Voice ID: [id number]
[2019-02-05] MEDS: CLINDAMYCIN PHOSPHATE 900 MG in NA CHLORIDE 0.9% 50 ML IV SCH ×2 (00:02→08:52)
[2019-02-05] MEDS: NA CHLORIDE 0.9% 1,000 ML IV SCH (05:36)
[2019-02-05 06:04] LABS: Absolute Lymphocytes (CBC) 0.7 K/uL (0.7-4.9); Basophils % 0.2 % (0-1.3); Hematocrit 40.6 % (39.6-49.0); Lymphocytes % 4.7 % (15.3-44.8); MPV 8.4 fL (7.6-11.3); RBC Red Blood Cell Count 5.01 M/uL (4.33-5.43)
[2019-02-05 06:10] LABS: Potassium 5.1 mmol/L (3.5-5.1)
[2019-02-05 08:22] LABS: Blood Morphology Comment NOT SEEN (NOT SEEN); Platelet Estimate ADEQ
[2019-02-05] MEDS ORDERED: VANCOMYCIN 1.5 GM in NA CHLORIDE 0.9% 500 ML IVPB SCH (10:00)
== END 2019-02-05 15:51 | disposition home or self-care (01) | DRG 566 ==
LOC: ER 00:04 → ERHOLD 05:11 → 2ND 06:26
PROVIDERS: ADMIT Internal Medicine; ATTEND Internal Medicine
PROC: 0R9L3ZX Drainage of Right Elbow Joint, Percutaneous Approach, Diagnostic (ICD-10-PCS; principal; 2019-02-04)
DX: M25.421 Effusion, right elbow (principal); I48.91 Unspecified atrial fibrillation; I10 Essential (primary) hypertension; I25.10 Atherosclerotic heart disease of native coronary artery without angina pectoris; E78.5 Hyperlipidemia, unspecified; Z23 Encounter for immunization; Z79.01 Long term (current) use of anticoagulants; Z79.82 Long term (current) use of aspirin; Z95.5 Presence of coronary angioplasty implant and graft
CPT/HCPCS: 36415; 71045; 80048; 80053; 84550; 85025; 85610; 85652; 85730; 87070; 89050; 89060; 90471; 90670; 93005; 96365; 96367; 96375; 99285; J0690; J2405; J2930; J3370; J7030; S0077

== ENCOUNTER 2019-05-05 15:41 | Emergency (ER) | payer OTHER ==
[2019-05-05] MEDS ORDERED: FENTANYL CITR 100 MCG/2 ML ONE (16:58)
--- NOTE | 2019-05-05 17:58 | RAD REPORT ---
EXAM DESCRIPTION: USExtremity Venous Uni Ltd05/05/2019 5:30 pm CLINICAL HISTORY: Leg swelling COMPARISON: none FINDINGS: The common femoral, superficial femoral, popliteal and posterior tibial veins bilaterally are compressible and demonstrate augmentation. Doppler demonstrates good flow. IMPRESSION: No evidence of deep venous thrombosis involving either lower extremity.
--- NOTE | 2019-05-05 18:40 | ER ---
Nurse's Notes [facility] Name: Denilson Quiros Age: 68 yrs Sex: Male : 1950 Arrival Date: 05/05/2019 Time: 15:43 Bed 27 Private MD: Diagnosis: Edema, unspecified Presentation: 05/05 15:50 Presenting complaint: Patient states: right foot pain and increased swelling to right aa5 foot x 2-3 weeks ago. Transition of care: patient was not received from another setting of care. Onset of symptoms was March 2019. Risk Assessment: Do you want to hurt yourself or someone else? Patient reports no desire to harm self or others. Initial Sepsis Screen: Does the patient meet any 2 criteria? No. Patient's initial sepsis screen is negative. Does the patient have a suspected source of infection? No. Patient's initial sepsis screen is negative. Care prior to arrival: None. 15:50 Method Of Arrival: Wheelchair aa5 15:50 Acuity: CHUCKY 3 aa5 Historical: - Allergies: 15:51 Levaquin; aa5 - PMHx: 15:51 Atrial Fib; CAD; Hyperlipidemia; Lung Cancer; aa5 - PSHx: 15:51 Heart stents; Right lung removed (lung cancer); CABG; aa5 - Immunization history:: Flu vaccine is up to date. - Social history:: Smoking status: Patient/guardian denies using tobacco. - Ebola Screening: : No symptoms or risks identified at this time. Screenin:09 Abuse screen: Denies threats or abuse. Denies injuries from another. Nutritional ca1 screening: No deficits noted. Tuberculosis screening: No symptoms or risk factors identified. 16:15 Fall Risk None identified. ca1 Assessment: 16:09 General: Appears in no apparent distress. comfortable, Behavior is calm, cooperative, ca1 appropriate for age. Pain: Complains of pain in right foot Pain currently is 8 out of 10 on a pain scale. Pain began a week ago Is intermittent. Pain: Aggravated by weight bearing. Neuro: Level of Consciousness is awake, alert, obeys commands, Oriented to person, place, time, situation, Appropriate for age. Cardiovascular: Heart tones S1 S2 present Capillary refill < 3 seconds Patient's skin is warm and dry. Cardiovascular: Pulses are all present. Respiratory: Airway is patent Respiratory effort is even, unlabored, Respiratory pattern is regular, symmetrical. GI: Abdomen is round non-distended, Bowel sounds present X 4 quads. Abd is soft and non tender X 4 quads. : No deficits noted. No signs and/or symptoms were reported regarding the genitourinary system. EENT: No deficits noted. No signs and/or symptoms were reported regarding the EENT system. Derm: Skin is intact, is healthy with good turgor, Skin is pink, warm \T\ dry. Musculoskeletal: Circulation, motion, and sensation intact. Capillary refill < 3 seconds, Range of motion: intact in all extremities, Swelling present in right foot. 17:31 Reassessment: Patient appears in no apparent distress at this time. Patient and/or ca1 family updated on plan of care and expected duration. Pain level reassessed. Patient is alert, oriented x 3, equal unlabored respirations, skin warm/dry/pink. 18:38 Reassessment: Patient appears in no apparent distress at this time. Patient and/or ca1 family updated on plan of care and expected duration. Pain level reassessed. Patient is alert, oriented x 3, equal unlabored respirations, skin warm/dry/pink. Vital Signs: 15:51 BP 119 / 59; Pulse 75; Resp 18 S; Temp 98.1(TE); Pulse Ox 100% on R/A; Weight 78.93 kg aa5 (R); Height 5 ft. 8 in. (172.72 cm) (R); Pain 10/10; 17:31 BP 119 / 68; Pulse 70; Resp 16 S; Pulse Ox 100% on R/A; ca1 18:38 BP 126 / 67; Pulse 71; Resp 16 S; Pulse Ox 100% on R/A; ca1 15:51 Body Mass Index 26.46 (78.93 kg, 172.72 cm) aa5 ED Course: 15:43 Patient arrived in ED. rg4 15:49 Arm band placed on. aa5 15:51 Triage completed. aa5 16:07 Lynn Carrera, RN is Primary Nurse. ca1 16:09 Patient has correct armband on for positive identification. Bed in low position. Call ca1 light in reach. Side rails up X 1. Pulse ox on. NIBP on. Warm blanket given. 16:09 No provider procedures requiring assistance completed. ca1 16:38 Lakshmi Posey [facility]-C [facility]. snw 16:38 Hussein Fuller MD is Attending Physician. snw 17:30 US Extremity Venous Unilateral Ltd In Process Unspecified. EDMS 18:00 Ultrasound completed. hr 19:20 Patient did not have IV access during this emergency room visit. ca1 Administered Medications: 17:01 Drug: fentaNYL (PF) 75 mcg {Note: RASS - 0.} Route: IM; Site: right gluteus; ca1 17:31 Follow up: Response: No adverse reaction; Pain is decreased ca1 Outcome: 18:40 Discharge ordered by . snw 19:20 Discharged to home via wheelchair, with family. ca1 19:20 Condition: stable 19:20 Discharge instructions given to patient, family, Instructed on discharge instructions, follow up and referral plans. Demonstrated understanding of instructions, follow-up care. 19:21 Patient left the ED. ca1 Signatures: Dispatcher [employer] EDMS Lakshmi Posey FNP-C ENROLLMENT MANAGER-Csnw Tamara Gutierrez hr Tiffany Garza, RN RN aa5 Karena Quiros rg4 Lynn Carrera RN RN ca1
--- NOTE | 2019-05-05 18:41 | EDPHYS ---
Physician Documentation [facility] Name: Denilson Quiros Age: 68 yrs Sex: Male : 1950 Arrival Date: 05/05/2019 Time: 15:43 Bed 27 Private MD: ED Physician Hussein Fuller HPI: 05/05 16:58 This 68 yrs old Male presents to ER via Wheelchair with complaints of Foot snw Pain. 16:58 The patient presents with pain, swelling. The complaints affect the right calf, right snw mosley, anterior aspect of right ankle and dorsum of right foot. Context: The problem was sustained at home, in the hospital, resulted from an unknown cause, the patient is able to ambulate, pt with hx of surgery for lung cancer. Taking ASA and Plavix. Onset: The symptoms/episode began/occurred gradually, 1 week(s) ago, and became persistent. Associated signs and symptoms: Pertinent positives: calf tenderness, swelling. Severity of symptoms: At their worst the symptoms were moderate. The patient has not experienced similar symptoms in the past. The patient has been recently seen by a physician: a impersonator character, yesterday, pt states everything seemed okay, Science Education Professor ordered lower ext us for Thursday. Historical: - Allergies: 15:51 Levaquin; aa5 - PMHx: 15:51 Atrial Fib; CAD; Hyperlipidemia; Lung Cancer; aa5 - PSHx: 15:51 Heart stents; Right lung removed (lung cancer); CABG; aa5 - Immunization history:: Flu vaccine is up to date. - Social history:: Smoking status: Patient/guardian denies using tobacco. - Ebola Screening: : No symptoms or risks identified at this time. ROS: 16:58 Constitutional: Negative for fever, chills, and weight loss, Eyes: Negative for injury, snw pain, redness, and discharge, ENT: Negative for injury, pain, and discharge, Neck: Negative for injury, pain, and swelling, Cardiovascular: Negative for chest pain, palpitations, and edema, Respiratory: Negative for shortness of breath, cough, wheezing, and pleuritic chest pain, Abdomen/GI: Negative for abdominal pain, nausea, vomiting, diarrhea, and constipation, Back: Negative for injury and pain, : Negative for injury, bleeding, discharge, and swelling, Skin: Negative for injury, rash, and discoloration, Neuro: Negative for headache, weakness, numbness, tingling, and seizure, Psych: Negative for depression, anxiety, suicide ideation, homicidal ideation, and hallucinations. 16:58 MS/extremity: Positive for pain, swelling, of the right calf and right foot. Exam: 16:56 Constitutional: This is a well developed, well nourished patient who is awake, alert, snw and in no acute distress. Head/Face: Normocephalic, atraumatic. Eyes: Pupils equal round and reactive to light, extra-ocular motions intact. Lids and lashes normal. Conjunctiva and sclera are non-icteric and not injected. Cornea within normal limits. Periorbital areas with no swelling, redness, or edema. ENT: Nares patent. No nasal discharge, no septal abnormalities noted. Tympanic membranes are normal and external auditory canals are clear. Oropharynx with no redness, swelling, or masses, exudates, or evidence of obstruction, uvula midline. Mucous membranes moist. Neck: Trachea midline, no thyromegaly or masses palpated, and no cervical lymphadenopathy. Supple, full range of motion without nuchal rigidity, or vertebral point tenderness. No Meningismus. 16:56 Cardiovascular: Regular rate and rhythm with a normal S1 and S2. No gallops, murmurs, or rubs. Normal PMI, no JVD. No pulse deficits. Respiratory: Lungs have equal breath sounds bilaterally, clear to auscultation and percussion. No rales, rhonchi or wheezes noted. No increased work of breathing, no retractions or nasal flaring. Abdomen/GI: Soft, non-tender, with normal bowel sounds. No distension or tympany. No guarding or rebound. No evidence of tenderness throughout. Back: No spinal tenderness. No costovertebral tenderness. Full range of motion. Skin: Warm, dry with normal turgor. Normal color with no rashes, no lesions, and no evidence of cellulitis. Neuro: Awake and alert, GCS 15, oriented to person, place, time, and situation. Cranial nerves II-XII grossly intact. Motor strength 5/5 in all extremities. Sensory grossly intact. Cerebellar exam normal. Normal gait. Psych: Awake, alert, with orientation to person, place and time. Behavior, mood, and affect are within normal limits. 16:56 Chest/axilla: Inspection: recent lung surgery, cut from right upper scapular area to distal scapular area. 16:56 Musculoskeletal/extremity: Extremities: grossly normal except: noted in the right calf, right mosley, anterior aspect of right ankle and dorsum of right foot: pain, swelling. Vital Signs: 15:51 BP 119 / 59; Pulse 75; Resp 18 S; Temp 98.1(TE); Pulse Ox 100% on R/A; Weight 78.93 kg aa5 (R); Height 5 ft. 8 in. (172.72 cm) (R); Pain 10/10; 17:31 BP 119 / 68; Pulse 70; Resp 16 S; Pulse Ox 100% on R/A; ca1 18:38 BP 126 / 67; Pulse 71; Resp 16 S; Pulse Ox 100% on R/A; ca1 15:51 Body Mass Index 26.46 (78.93 kg, 172.72 cm) aa5 MDM: 16:43 Patient medically screened. snw 18:44 Data reviewed: vital signs, nurses notes. Data interpreted: Pulse oximetry: on room air snw is 100 %. Interpretation: normal. Counseling: I had a detailed discussion with the patient and/or guardian regarding: the historical points, exam findings, and any diagnostic results supporting the discharge/admit diagnosis, radiology results, the need for outpatient follow up, to return to the emergency department if symptoms worsen or persist or if there are any questions or concerns that arise at home. Special discussion: Based on the history and exam findings, there is no indication for further emergent testing or inpatient evaluation. I discussed with the patient/guardian the need to see the primary care provider for further evaluation of the symptoms. 05/05 16:55 Order name: US Extremity Venous Unilateral Ltd; Complete Time: 18:06 snw Administered Medications: 17:01 Drug: fentaNYL (PF) 75 mcg {Note: RASS - 0.} Route: IM; Site: right gluteus; ca1 17:31 Follow up: Response: No adverse reaction; Pain is decreased ca1 Disposition: 05/06 07:30 Co-signature as Attending Physician, Hussein Fuller MD. Disposition: 05/05/19 18:40 Discharged to Home. Impression: Edema, unspecified. - Condition is Stable. - Discharge Instructions: Peripheral Edema. - Medication Reconciliation Form, Thank You Letter, Antibiotic Education, Prescription Opioid Use form. - Follow up: Private Physician; When: 5 - 6 days; Reason: Recheck today's complaints, Continuance of care, Re-evaluation by your physician. Follow up: Emergency Department; When: As needed; Reason: Worsening of condition. Signatures: Dispatcher [employer] EDMS Whitney Poseyy, RIVKA-C COMMUNITY MANAGER-Csnw Tiffany Garza, RN RN aa5 Hussein Fuller MD MD gs Acob, Lynn RN RN ca1 Corrections: (The following items were deleted from the chart) 05/05 19:21 18:40 05/05/2019 18:40 Discharged to Home. Impression: Edema, unspecified. Condition is ca1 Stable. Forms are Medication Reconciliation Form, Thank You Letter, Antibiotic Education, Prescription Opioid Use. Follow up: Private Physician; When: 5 - 6 days; Reason: Recheck today's complaints, Continuance of care, Re-evaluation by your physician. Follow up: Emergency Department; When: As needed; Reason: Worsening of condition. snw
[2019-05-05 21:30] VITALS: TEMP 98.1; O2SAT 100
[2019-05-05 21:32] VITALS: BP 126/67
== END 2019-05-05 19:21 | disposition home or self-care (01) ==
LOC: ER 15:41
DX: R60.9 Edema, unspecified (principal); Z88.1 Allergy status to other antibiotic agents; Z95.1 Presence of aortocoronary bypass graft; Z85.118 Personal history of other malignant neoplasm of bronchus and lung; Z95.818 Presence of other cardiac implants and grafts; Z90.2 Acquired absence of lung [part of]
CPT/HCPCS: 93971; 96372; 99283; J3010

== ENCOUNTER 2021-03-31 07:50 | Inpatient (IN) | payer OTHER ==
--- OUTSIDE RECORDS SUMMARY | 2021-03-31 07:52 | XMS REPORT | Continuity of Care Document ---
:1950 Author Organization [facility] t Address [address] [place] [address] Care Team Providers Name Role Phone Chris Primary Care Physician Flora STEELE T Attending Clinician ERNST Attending Clinician Unavailable BRYCE Attending Clinician Unavailable NANDINI Attending Clinician Unavailable Payers Payer Name Policy Type Policy Number Effective Date Expiration Date S ource Problems Condition Condition Condition Status Onset Resolution Last Treating Co mments Source Name Details Category Date Date Treatment Clinician Date Cancer of Cancer of Problem Active Uni vers right lung right lung it [facility] [place] [facility] ans Postoperat Postoperat Problem Active U nivers l[place] f [place] exam[place] S/P heart S/P heart Problem Active Uni vers valve valve ity of repair repair [place] [facility] HTN HTN Problem Active Univers (hypertens (hypertens it y of ion) ion) [place] [facility] Lower Lower Problem Active Univers extremity extremity ity of edema edema [place] [facility] Lower Lower Problem Active Univers extremity extremity ity of pain pain [place] [facility] No known No known Disease Unive rs active active ity of problems problems [facility] Allergies, Adverse Reactions, Alerts This patient has no known allergies or adverse reactions. Social History Social Habit Start Date Stop Date Quantity Comments Source Exposure to Not sure [facility] SARS-CoV-2 (event) Medica l Branch Sex Assigned At [birth year] [facility] [place] 00:00:00 00:00:00 Medical Branch Smoking Status Start Date Stop Date Source Former smoker [facility] Unknown if ever smoked [facility] Medical Branch Medications Ordered Filled Start Stop Current Ordering Indication Dosage Frequency Signature Comments Components Source Medication Medication Date Date Medication? Clinician (SIG) Name Name rivaroxaban Yes 15mg Take 15 mg Univers (XARELTO) 7-14 by mouth 2 ity of 15 mg 14:39: (two) [place] tablet 14 times Medical daily. Branch doxycycline Yes 100mg Take 100 U nivers 100 mg EC 7-14 mg by ity of tablet 14:39: mouth 2 [place] 14 (two) Medical times Branch daily. atorvastati Yes 40mg Take 40 mg Univers n 40 mg 7-14 by mouth ity of tablet 14:39: at [place] 14 bedtime. Medical Branch budesonide/ Yes Inhale. Uni vers formoterol 7-14 ity of fumarate 14:39: [place] (SYMBICORT 14 Medical INHALE) Branch rivaroxaban Yes 15mg Take 15 mg Univers (XARELTO) 7-14 by mouth 2 ity of 15 mg 14:39: (two) [place] tablet 14 times Medical daily. Branch doxycycline Yes 100mg Take 100 U nivers 100 mg EC 7-14 mg by ity of tablet 14:39: mouth 2 [place] 14 (two) Medical times [place] daily. atorvastati Yes 40mg Take 40 mg Univers n 40 mg 7-14 by mouth ity of tablet 14:39: at [place] 14 bedtime. Medical Branch budesonide/ Yes Inhale. Uni vers formoterol 7-14 ity of fumarate 14:39: [place] (SYMBICORT 14 Medical INHALE) Branch ASPIRIN Yes 81mg Take 81 mg Univ ers ORAL 7-14 by mouth. ity of 14:39: [address] tamsulosin Yes .4mg Take 0.4 Uni vers HCl 7-14 mg by ity of (TAMSULOSIN 14:39: [place]. [place] OR[place] [address] [place] [address] lisinopriL Yes 10mg Take 10 mg U nivers 10 mg 7-14 by mouth ity of tablet 14:39: daily. [address] levETIRAcet Yes 500mg Take 500 U nivers am 500 mg 7-14 mg by ity of tablet 14:39: mouth [address] [place] [address] (two) Medical times Branch daily. ASPIRIN 0 Yes 81mg Take 81 mg Univ ers ORAL 7-14 by mouth. ity of 14:39: [address] tamsulosin Yes .4mg Take 0.4 Uni vers HCl 7-14 mg by ity of (TAMSULOSIN 14:39: [place]. [place] [address] [place] [address] lisinopriL Yes 10mg Take 10 mg U nivers 10 mg 7-14 by mouth ity of tablet 14:39: daily. [address] levETIRAcet Yes 500mg Take 500 U nivers am 500 mg 7-14 mg by ity of tablet 14:39: mouth 2 [place] [address] (two) Medical times [place] daily. Aspir-Low Aspir-Low Yes Unive rs 81 MG Oral 81 MG Oral ity of Tablet Tablet [place] Delayed Delayed Physici Release Release ans Tamsulosin Tamsulosin Yes Uni vers HCl - 0.4 HCl - 0.4 ity o f MG Oral MG Oral [place] Capsule Capsule Physici ans Clopidogrel Clopidogrel Yes U nivers Bisulfate Bisulfate ity o f 75 MG Oral 75 MG Oral [place] as Tablet Tablet Physici ans NIFEdipine NIFEdipine Yes Uni vers ER 30 MG ER 30 MG ity of Oral Tablet Oral Tablet [place] Extended Extended Physici Release 24 Release 24 ans Hour Hour levETIRAcet levETIRAcet Yes U nivers am 500 MG am 500 MG ity o f Oral Tablet Oral Tablet [place] Physici ans Acetaminoph Acetaminoph Yes U nivers en-Codeine en-Codeine ity of #3 300-30 #3 300-30 [place] MG Oral MG Oral Physici Tablet Tablet ans Lisinopril Lisinopril Yes 2 QD TAKE 2 U nivers 2.5 MG Oral 2.5 MG Oral TABLET ity of Tablet Tablet Daily Josh TDD:5mg Physici ans Gabapentin Gabapentin Yes Uni vers 100 MG Oral 100 MG Oral i ty of Capsule Capsule [place] [facility] ans Vital Signs Vital Name Observation Time Observation Value Comments Source Systolic blood 2021-03-13 148 mm[Hg] University of pressure 21:37:00 [facility] Diastolic blood 2021-03-13 71 mm[Hg] University o f pressure 21:37:00 [facility] Heart rate 2021-03-13 75 /min University of 21:37:00 [facility] Body temperature 2021-03-13 36.22 Shilpa University of 21:37:00 [facility] Respiratory rate 2021-03-13 18 /min University of 21:37:00 [facility] Body height 2021-03-13 170.2 cm University of 21:37:00 [facility] Body weight 2021-03-13 83.825 kg University of 21:37:00 [facility] BMI 2021-03-13 28.94 kg/m2 University of 21:37:00 [facility] Oxygen saturation 2021-03-13 95 /min [facility] in Arterial blood 21:37:00 [facility] by Pulse oximetry Branch BP Systolic 2019-05-04 109 mm[Hg] Location: [facility]; [facility] 16:10:00 Position: [place] Physician s Sitting BP Diastolic 2019-05-04 62 mm[Hg] Location: Pending sale to [facility] 16:10:00 Position: [place] Physician s Sitting Height 2019-05-04 67 [in_us] University of 16:10:00 [place] Physician s Weight 2019-05-04 174.5 [lb_av] University of 16:10:00 [place] Phys[facility] s Body Mass Index 2019-05-04 27.33 kg/m2 University o f Calculated 16:10:00 [place] Physician s Heart Rate 2019-05-04 80 /min Location: [facility] 16:10:00 Brachial [place] Physician s Artery; Quality: Normal Respiration Rate 2019-05-04 16 /min Quality: Normal Universi of 16:10:00 [place] Physician s BP Systolic 2019-05-02 122 mm[Hg] University of 16:29:00 [place] Physician s BP Diastolic 2019-05-02 71 mm[Hg] University of 16:29:00 [place] Physician s Weight 2019-05-02 177 [lb_av] University of 16:29:00 [place] [facility] s Body Mass Index 2019-05-02 27.72 kg/m2 University o f Calculated 16:29:00 [place] [facility] s Heart Rate 2019-05-02 82 /min University of 16:29:00 [place] [facility] s Respiration Rate 2019-05-02 14 /min University of 16:29:00 [place] [facility] s Temperature 2019-05-02 97.1 [degF] University of 16:29:00 [place] [facility] s O2 SAT 2019-05-02 100 % [facility] 16:29:00 [place] [facility] s Height 2019-04-04 67 [in_us] [facility] 15:37:00 [place] [facility] s BP Systolic 2019-04-04 125 mm[Hg] [facility] 15:37:00 [place] [facility] s BP Diastolic 2019-04-04 65 mm[Hg] [facility] 15:37:00 [place] [facility] s Weight 2019-04-04 180 [lb_av] [facility] 15:37:00 [place] [facility] s Body Mass Index 2019-04-04 28.19 kg/m2 [facility] Calculated 15:37:00 [place] Physician s Temperature 2019-04-04 97.1 [degF] [facility] 15:37:00 [place] [facility] Heart Rate 2019-04-04 75 /min [facility] 15:37:00 [place] [facility] s Respiration Rate 2019-04-04 14 /min [facility] 15:37:00 [place] Phys[facility] s O2 SAT 2019-04-04 100 % [facility] 15:37:00 [place] Phys[facility] s Procedures Procedure Date / Time Performing Clinician Source Performed [N] 2D Echo complete, 2019-05-06 00:00:00 [facility] with Doppler 25338 Physicians [N] Venous Duplex Lower 2019-05-06 00:00:00 [facility] Bilateral Physicians Complete PFTs w/DLCO 2019-04-05 00:00:00 [facility] and Lung Volumes Physicians History of Aortic Valve [facility] Replacement Physicians Plan of Care Planned Activity Planned Date Details Comments Source Diagnostic Test 2019-05-06 [N] 2D Echo [facility] Pending 00:00:00 complete, with Physicians Doppler 57776 [code = [N] 2D Echo complete, with Doppler [id number]] Diagnostic Test 2019-05-06 [N] Venous Duplex [facility] Pending 00:00:00 Lower Bilateral Physicians [code = [N] Venous Duplex Lower Bilateral] Diagnostic Test 2019-05-06 [N] 2D Echo [facility] Pending 00:00:00 complete, with Physicians Doppler 65203 [code = [N] 2D Echo complete, with Doppler 47166] Diagnostic Test 2019-05-06 [N] Venous Duplex [facility] Pending 00:00:00 Lower Bilateral Physicians [code = [N] Venous Duplex Lower Bilateral] Encounters Start End Encounter Admission Attending Care Care Encounter Source Date/Time Date/Time Type Type Clinicians Facility Department ID 2019-04-12 Inpatient [facility] [id number] [facility] 05:53:00 2021-03-22 2021-03-22 [facility] [id number] Univers 00:00:00 00:00:00 Strahil T Diamond [id number] [id number] [id number] Ak dicvt nal [address] [place] [address] 2021-03-13 2021-03-13 [facility] [id number] Univers 16:31:31 16:51:31 Visit Strahil T Diamond [id number] [id number] [id number] [address] 2019-05-04 2019-05-04 GOVIND Sherman Multispecia [id number] Univers 15:40:00 15:40:00 t; CHASE DUKES lty - Lilibeth M.D. [place] [facility] 2019-05-02 2019-05-02 GOVIND Simms [facility] [id number] Univers 14:30:00 14:30:00 t; HCAVO WU cic & Lorna M.D. Vascular Josh Torres Surgery - Physic i [facility] 2019-04-26 2019-04-26 GOVIND Hays [facility] [id number] Univers 10:00:00 10:00:00 t; THUAN DELATORRE M.D. i ty joaquin LAROSE M.D. [place] [facility] 2019-04-08 2019-04-08 Outpatient [facility] [id number] [facility] 10:15:00 10:15:00 2019-04-04 2019-04-04 GOVIND Simms [id number] Univers 14:30:00 14:30:00 t; CHAVO WU ity of [place], M.D. Josh Power ans 2019-03-31 2019-03-31 Outpatient [facility] [id number] [facility] 13:39:00 13:39:00 2019-03-31 2019-03-31 Appointmen GOVIND DELATORRE [facility] [id number] Univers 13:00:00 13:00:00 t; THUAN DELATORRE M.D. i ty of Brian LAROSE Physicsaida ans 2019-02-19 2019-02-19 Inpatient U [facility] CAR [id number] [facility] 17:06:00 14:30:00 2019-02-19 2019-02-19 Outpatient [facility] DOMINGO [id number] [facility] 14:30:00 14:30:00 Results Test Description Test Time Test Comments Results Result Sourc e Comments XRAY Chest 2 2019-04-19 EXAM: XR CHEST 2 Univer sity of views [id number] VIEWSDATE: [place]/02/2019 [place] 13:39:[place] 14:44 CDTINDICATION: Phys icians Status post pneumonectomy.COMPARI SON: CXR 04/17/2019TECHNIQUE: PA and lateral chest radiographsFINDINGS:Adolfo perez with PACS integrating study with dictation.Denilson QuirosN [id number] and tubes: Median sternotomy wires.Atrial appendage clip.Lungs and pleura: Near total opacification of the right hemithorax with rightupper hemithorax lucency air cavity in a patient with post pneumonectomy.Left lung without consolidations.No left pleural effusion. No left pneumothorax.Heart and mediastinum: Obscuration of the right cardiac border by by fluid.Bones: Postthoracotomy with fracture of the right posterior sixth rib.Soft tissues: Decreased right axillary subcutaneous emphysema.IMPRESSION: * Moderate opacification of the right hemithorax with upper hemithorax lucentair cavity in a patient with postpneumonectomy changes. Left lung clear.* No left pleural effusion or pneumothorax.--Read by: Jay Vera MD PHDDictated Date/time: 05/02/19 14:44Electronically Signed by: Jay Vera MD PH 05/02/1914:57FINAL REPORT
--- NOTE | 2021-03-31 08:49 | RAD REPORT ---
EXAM DESCRIPTION: RAD - Chest Single View - 03/31/2021 8:41 am CLINICAL HISTORY: hemoptysis;Cough Chest pain. COMPARISON: Chest Single View dated 02/04/2019; Chest Pa And Lat (2 Views) dated 05/13/2018; Chest Si ngle View dated 05/10/2018; Chest Single View dated 04/05/2018 FINDINGS: Portable technique limits examination quality. Significant volume loss is seen with complete opacification of the right hemithorax. Postsurgical osmany nges are noted. The left lung is grossly clear. The heart is normal in size. Sternotomy wires are not ed.
[2021-03-31 09:31] LABS: Absolute Lymphocytes (CBC) 0.7 K/uL (0.7-4.9); Basophils % 0.5 % (0-1.3); Hematocrit 29.9 % (39.6-49.0); Lymphocytes % 7.4 % (15.3-44.8); MPV 7.3 fL (7.6-11.3); RBC Red Blood Cell Count 4.32 M/uL (4.33-5.43)
[2021-03-31 09:33] LABS: Protime INR 1.38
[2021-03-31 09:40] LABS: ALT/SGPT 11 U/L (12-78); AST/SGOT 15 U/L (15-37); Albumin 2.7 g/dL (3.4-5.0); Alkaline Phosphatase 121 U/L (45-117); BUN Blood Urea Nitrogen 20 mg/dL (7-18); Bicarbonate 24 mmol/L (21-32); Bilirubin Direct 0.1 mg/dL (0-0.2); Bilirubin Total 0.4 mg/dL (0.2-1.0); Glucose Level 174 mg/dL (74-106); Lipase 84 U/L (73-393); Magnesium 1.8 mg/dL (1.8-2.4); NT PRO-BNP 3338 pg/mL (<125); Potassium 4.8 mmol/L (3.5-5.1); Protein, Total 6.9 g/dL (6.4-8.2); Sodium Level 137 mmol/L (136-145); Troponin (Emerg Dept Use Only) < 0.02 ng/mL (0.0-0.045)
--- NOTE | 2021-03-31 10:10 | RAD REPORT ---
EXAM DESCRIPTION: CT - Chest For Pe Angio - 03/31/2021 9:57 am CLINICAL HISTORY: Chest pain. cough, hemoptysis COMPARISON: No comparisons TECHNIQUE: CT angiogram of the pulmonary arteries was performed with MIP. All CT scans are performed using dose optimization technique as appropriate and may include automated exposure control or mA/KV adjustment according to patient size. FINDINGS: No evidence of pulmonary thromboembolism. No acute aortic finding demonstrated. Median sternotomy. Significant right-sided lung volume loss is present with postsurgical clips noted in the right hilum. A amorphous vague soft tissue is also present posterior to the right hilum. A few mildly prominent m ediastinal lymph nodes are present. The left lung is grossly clear. No significant pericardial or pleural fluid. No concerning bony finding. IMPRESSION: No evidence of pulmonary thromboembolism. Postsurgical changes of the right lung are noted. Recommend correlation with surgical history to asse ss whether patient underwent prior right-sided pneumonectomy. Poorly defined soft tissue is present p osterior to the right hilum mild mediastinal adenopathy present. Findings are nonspecific.
--- NOTE | 2021-03-31 11:09 | ER ---
Nurse's Notes [facility] Name: Denilosn Quiros Age: 70 yrs Sex: Male : 1950 Arrival Date: 03/31/2021 Time: 07:53 Bed 2 Private MD: Diagnosis: Hemoptysis;Anemia, unspecified Presentation: 03/31 08:13 Chief complaint: Patient states: coughing up blood tinged phlegm since 0430 this morning. HX of lung CA. Coronavirus screen: Client presents with at least one sign or symptom that may indicate coronavirus-19. Standard/surgical mask placed on the client. Provider contacted for isolation considerations. Ebola Screen: Patient denies exposure to infectious person. Patient denies travel to an Ebola-affected area in the 21 days before illness onset. Initial Sepsis Screen: Does the patient meet any 2 criteria? No. Patient's initial sepsis screen is negative. Does the patient have a suspected source of infection? No. Patient's initial sepsis screen is negative. Risk Assessment: Do you want to hurt yourself or someone else? Patient reports no desire to harm self or others. Onset of symptoms was March 31, 2021. 08:13 Method Of Arrival: Ambulatory 08:13 Acuity: CHUCKY 3 ss Historical: - Allergies: 08:18 Levaquin; ss - PMHx: 08:18 Atrial Fib; CAD; Cancer; HEART STENT; Hyperlipidemia; Lung Cancer; ss - Immunization history:: Client reports receiving the 2nd dose of the Covid vaccine. - Social history:: Smoking status: Patient denies any tobacco usage or history of. - Family history:: not pertinent. - Hospitalizations: : No recent hospitalization is reported. Screenin:15 Abuse screen: Denies threats or abuse. Denies injuries from another. Nutritional jl7 screening: No deficits noted. Tuberculosis screening: No symptoms or risk factors identified. Fall Risk IV access (20 points). Total Hernandez Fall Scale indicates No Risk (0-24 pts). Assessment: 08:10 General: Appears in no apparent distress. uncomfortable, Behavior is calm, cooperative, jl7 appropriate for age. Pain: Denies pain. Neuro: Level of Consciousness is awake, alert, obeys commands, Oriented to person, place, time, situation. Cardiovascular: Heart tones present Patient's skin is warm and dry. Respiratory: Airway is patent Respiratory effort is even, unlabored, Respiratory pattern is regular, symmetrical, Breath sounds are clear in right upper lobe and left upper lobe. Derm: Skin is pink, warm \T\ dry. 09:00 Reassessment: Patient appears in no apparent distress at this time. No changes from jl7 previously documented assessment. Patient and/or family updated on plan of care and expected duration. Pain level reassessed. Patient is alert, oriented x 3, equal unlabored respirations, skin warm/dry/pink. 10:00 Reassessment: Patient appears in no apparent distress at this time. No changes from jl7 previously documented assessment. Patient and/or family updated on plan of care and expected duration. Pain level reassessed. Patient is alert, oriented x 3, equal unlabored respirations, skin warm/dry/pink. 10:45 Reassessment: Dr. Bhatia at bedside discussing results and POC. jl7 14:06 Reassessment: Patient appears in no apparent distress at this time. No changes from tw2 previously documented assessment. Patient and/or family updated on plan of care and expected duration. Pain level reassessed. Patient is alert, oriented x 3, equal unlabored respirations, skin warm/dry/pink. Vital Signs: 08:13 BP 113 / 57; Pulse 78; Resp 16; Temp 97.7(TE); Pulse Ox 100% on R/A; Weight 83.46 kg; Height 5 ft. 8 in. (172.72 cm); Pain 0/10; 09:31 BP 93 / 59; Pulse 77; Resp 15; Pulse Ox 100% ; jl7 11:30 BP 99 / 60; Pulse 73; Resp 15; Pulse Ox 100% ; jl7 14:07 BP 105 / 69; Pulse 77; Resp 17; Pulse Ox 100% on R/A; tw2 08:13 Body Mass Index 27.98 (83.46 kg, 172.72 cm) ED Course: 07:53 Patient arrived in ED. ds1 08:08 Joseph Bhatia MD is Attending Physician. rn 08:15 Patient has correct armband on for positive identification. Placed in gown. Bed in low jl7 position. Call light in reach. Side rails up X 1. traffic monitor specialist on. Pulse ox on. NIBP on. Warm blanket given. 08:18 Triage completed. ss 08:18 Arm band placed on right wrist. 08:24 Vito Perez, RN is Primary Nurse. jl7 08:30 Initial lab(s) drawn, by az, sent to lab. Inserted saline lock: 20 gauge in left jl7 antecubital area, using aseptic technique. Blood collected. 08:41 XRAY CXR (1 view) In Process Unspecified. EDMS 08:50 EKG done, by ED staff, reviewed by Joseph Bhatia MD. [facility] 09:57 CT Chest For PE Angio In Process Unspecified. EDMS 11:08 Dwain Cochran MD is Hospitalizing Provider. rn 11:30 No provider procedures requiring assistance completed. Patient admitted, IV remains in jl7 place. intact, No redness/swelling at site. 13:50 Report given to JONH Coates on 2nd floor at this time. tw2 14:07 Inserted. tw2 Administered Medications: No medications were administered Outcome: 11:08 Decision to Hospitalize by Provider. rn 13:58 Admitted to Med/surg accompanied by tech, via wheelchair, room 208. tw2 13:58 Condition: stable 13:58 Instructed on the need for admit. 14:08 Patient left the ED. tw2 Signatures: Dispatcher [employer] EDPA Wendy Cadet ds1 Joseph Bhatia MD MD rn Smirch, Shelby, RN RN ss Wise, Tara, RN RN tw2 Vito Perez, JONH RN [facility] Isabell Ying 3
--- NOTE | 2021-03-31 11:09 | EDPHYS ---
Physician Documentation [facility] Name: Denilson Quiros Age: 70 yrs Sex: Male : 1950 Arrival Date: 03/31/2021 Time: 07:53 Bed 2 Private MD: ED Physician Joseph Bhatia HPI: 03/31 08:17 This 70 yrs old Male presents to ER via Unassigned with complaints of Coughing rn blood. 08:17 The patient or guardian reports cough, described as mild, with productive sputum, rn Hemoptysis. Onset: The symptoms/episode began/occurred last night. Severity of symptoms: At their worst the symptoms were mild, in the emergency department the symptoms are unchanged. Modifying factors: The symptoms are alleviated by nothing, the symptoms are aggravated by nothing. Associated signs and symptoms: Pertinent negatives: chest pain, fever, rhinorrhea, sore throat. The patient has not experienced similar symptoms in the past. The patient has not recently seen a physician. Patient reports coughing up red blood since last night, started coughing up some mucus with some blood in it. States this morning still coughing blood but not as much. Denies shortness of breath. Reports generalized weakness and fatigue. Denies fever or recent illness. states history of lung cancer with possible lobectomy or partial pneumectomy in the past. States is not vomiting blood and denies any abdominal pain or dark stool.. Historical: - Allergies: 08:18 Levaquin; ss - PMHx: 08:18 Atrial Fib; CAD; Cancer; HEART STENT; Hyperlipidemia; Lung Cancer; ss - Immunization history:: Client reports receiving the 2nd dose of the Covid vaccine. - Social history:: Smoking status: Patient denies any tobacco usage or history of. - Family history:: not pertinent. - Hospitalizations: : No recent hospitalization is reported. ROS: 08:17 Constitutional: Negative for fever, chills, and weight loss, Eyes: Negative for injury, rn pain, redness, and discharge, ENT: Negative for injury, pain, and discharge, Neck: Negative for injury, pain, and swelling, Cardiovascular: Negative for chest pain, palpitations, and edema, Respiratory: Positive for cough and hemoptysis Abdomen/GI: Negative for abdominal pain, nausea, vomiting, diarrhea, and constipation, Back: Negative for injury and pain, : Negative for injury, bleeding, discharge, and swelling, MS/Extremity: Negative for injury and deformity, Skin: Negative for injury, rash, and discoloration, Neuro: Negative for headache, numbness, tingling, and seizure. 08:17 All other systems are negative. Exam: 08:17 Constitutional: This is a well developed, well nourished patient who is awake, alert, rn and in no acute distress. Head/Face: Normocephalic, atraumatic. Eyes: Pale conjunctiva ENT: Mucous membranes moist. Cardiovascular: Regular rate and rhythm. No pulse deficits. Respiratory: Speaking full sentences. Unlabored no increased work of breathing, no retractions or nasal flaring. Abdomen/GI: Soft, non-tender Skin: Warm, dry MS/ Extremity: Pulses equal, no cyanosis. Neuro: Awake and alert, GCS 15, oriented to person, place, time, and situation. Vital Signs: 08:13 BP 113 / 57; Pulse 78; Resp 16; Temp 97.7(TE); Pulse Ox 100% on R/A; Weight 83.46 kg; ss Height 5 ft. 8 in. (172.72 cm); Pain 0/10; 09:31 BP 93 / 59; Pulse 77; Resp 15; Pulse Ox 100% ; jl7 11:30 BP 99 / 60; Pulse 73; Resp 15; Pulse Ox 100% ; jl7 14:07 BP 105 / 69; Pulse 77; Resp 17; Pulse Ox 100% on R/A; tw2 08:13 Body Mass Index 27.98 (83.46 kg, 172.72 cm) ss MDM: 08:08 Patient medically screened. rn 11:06 Differential Diagnosis: Bronchitis Upper Respiratory Infection Viral Syndrome Pneumonia rn Other Cancer, pulmonary embolism, inflammation, bronchiectasis. Data reviewed: vital signs, nurses notes, lab test result(s), EKG, radiologic studies, CT scan, plain films, and as a result, I will admit patient. Data interpreted: security monitor: rate is 77 beats/min, rhythm is normal sinus rhythm, regular, with no ectopy, Interpretation: normal rate, normal rhythm, Pulse oximetry: on room air is 100 %. Interpretation: normal. Counseling: I had a detailed discussion with the patient and/or guardian regarding: the historical points, exam findings, and any diagnostic results supporting the discharge/admit diagnosis, lab results, radiology results, the need for further work-up and treatment in the hospital. Response to treatment: the patient's symptoms have mildly improved after treatment, and as a result, I will admit patient. Admission orders: after a detailed discussion of the patient's condition and case, the admit orders are written by me. ED course: Patient with grossly negative work-up here. CT chest without acute findings. Chest x-ray is negative for acute findings. Covid negative. Oxygen normal without need for oxygen supplementation. Hemoptysis is improving but given fatigue and drop in hemoglobin compared to last visit, will observe in hospital, hold Xarelto and aspirin, and serial H\T\H.. 03/31 08:15 Order name: BMP; Complete Time: 10:20 rn 03/31 08:15 Order name: Blood Culture Adult (2) rn 03/31 08:15 Order name: CBC with Diff rn 03/31 08:15 Order name: Hepatic Function; Complete Time: 10:20 rn 03/31 08:15 Order name: Lipase; Complete Time: 10: rn 03/31 08:15 Order name: Magnesium; Complete Time: 10:20 rn 03/31 08:15 Order name: NT PRO-BNP; Complete Time: 10:20 rn 03/31 08:15 Order name: PT-INR; Complete Time: 10:20 rn 03/31 08:15 Order name: Ptt, Activated; Complete Time: 10:20 rn 03/31 08:15 Order name: Troponin (emerg Dept Use Only); Complete Time: 10:20 rn 03/31 08:15 Order name: Type And Screen; Complete Time: 10:45 rn 03/31 11:17 Order name: ABO/RH no charge EDMO 03/31 08:15 Order name: CT Chest For PE Angio; Complete Time: 10:20 rn 03/31 08:15 Order name: XRAY CXR (1 view); Complete Time: 09:24 rn 03/31 08:15 Order name: EKG; Complete Time: 08:16 rn 03/31 11:36 Order name: SARS-COV-2 RT PCR EDMS 03/31 11:56 Order name: Manual Differential EDMS 03/31 13:05 Order name: Comprehensive Metabolic Panel EDMS 03/31 13:05 Order name: Comprehensive Metabolic Panel EDMS 03/31 13:05 Order name: CONS Physician Consult EDMS 03/31 13:05 Order name: Lipid Profile EDMS 03/31 13:05 Order name: Thyroid Stimulating Hormone EDMS 03/31 13:05 Order name: CBC with Automated Diff EDMS 03/31 13:05 Order name: CBC with Automated Diff EDMS 03/31 13:05 Order name: CBC with Automated Diff EDMS 03/31 13:05 Order name: CBC with Automated Diff EDMS 03/31 13:05 Order name: Comprehensive Metabolic Panel EDMS 03/31 13:05 Order name: Comprehensive Metabolic Panel EDMS 03/31 08:15 Order name: Cardiac monitoring; Complete Time: 08:50 rn 03/31 08:15 Order name: EKG - Nurse/Tech; Complete Time: 08:50 rn 03/31 08:15 Order name: IV Saline Lock; Complete Time: 09:37 rn 03/31 08:15 Order name: Labs collected and sent; Complete Time: 09:37 rn 03/31 08:15 Order name: O2 Per Protocol; Complete Time: 08:50 rn 03/31 08:15 Order name: O2 Sat Monitoring; Complete Time: 08:50 rn 03/31 13:05 Order name: Heart Healthy EDMS Administered Medications: No medications were administered Disposition Summary: 03/31/21 11:08 Hospitalization Ordered Hospitalization Status: Observation rn Provider: Dwain Cochran rn Location: Telemetry/MedSurg (observation) rn Condition: Stable rn Problem: new rn Symptoms: have improved rn Bed/Room Type: Standard rn Room Assignment: 208(03/31/21 13:15) Diagnosis - Hemoptysis rn - Anemia, unspecified rn Forms: - Medication Reconciliation Form rn - SBAR form rn Signatures: Dispatcher [employer] [facility] Darlin Light RN RN Joseph Reyes MD MD rn Smirch, Shelby, RN RN ss Corrections: (The following items were deleted from the chart) 10:34 08:16 CORONAVIRUS+MR.LAB.BRZ ordered. EDMO EDMS 11:57 09:54 CBC Smear Scan ordered. EDMO EDMS 13:15 11:08 rn eddie
[2021-03-31 11:57] LABS: Anisocytosis 1+; Blood Morphology Comment NOTED (NOT SEEN); Platelet Estimate INCR
[2021-03-31 11:58] LABS: Hypochromasia 1+
--- NOTE | 2021-03-31 13:10 | P.HP ---
Certification for Inpatient Patient admitted to: Inpatient With expected LOS: >2 Midnights Patient will require the following post-hospital care: None Practitioner: I am a practitioner with admitting privileges, knowledge of patient current condition, hospital course, and medical plan of care. Services: Services provided to patient in accordance with Admission requirements found in Title 42 Section 412.3 of the Code of Federal Regulations Patient History Date of Service: 03/31/21 Primary Care Provider: Hiral Starr Reason for admission: hemoptysis History of Present Illness: Patient is a pleasant mostly Luxembourger speaking gentleman. He has a pmh of atrial fib, cad, htn and hyperlipidemia. He comes to the hospital with one day of coughing up bright red blood. The patient has been having nocturnal coughing for the past 4 days. He has been on eliquis for the atrial fib as well. Today is the only day that he has noticed any blood. States it has only been a small amount. Gestures approx 4-6 oz. He did spit up some in front of me. He has a history of lung surgery on the right side. He had a pneumonectomy for cancer. Was treated in [place] By a doctor fox. Allergies levofloxacin [From Levaquin] Allergy (Verified 02/04/19 06:44) Itching/Hives/Rash Home Medications: Apixaban [Eliquis] 5 mg PO BID #60 tablet 04/06/18 Aspirin 81 mg PO DAILY #30 tab.chew 05/12/18 Atorvastatin Calcium [Lipitor] 80 mg PO BEDTIME #30 tab 05/12/18 Famotidine [Pepcid] 20 mg PO DAILY 6PM #30 tablet 05/12/18 Doxycycline Hyclate 100 mg PO BID #20 tablet 02/05/19 - Past Medical/Surgical History Diabetic: No -: Lip CA -: hyperlipidemia -: Afib -: Lip surg - Social History Alcohol use: No CD- Drugs: No Caffeine use: Yes Review of Systems 10-point ROS is otherwise unremarkable Respiratory: Cough, Other (hempotysis) Physical Examination - Physical Exam General: Alert, In no apparent distress HEENT: Atraumatic, PERRLA, Mucous membr. moist/pink, EOMI, Sclerae nonicteric Neck: Supple, 2+ carotid pulse no bruit, No LAD, Without JVD or thyroid abnormality Respiratory: Clear to auscultation bilaterally, Normal air movement Cardiovascular: Regular rate/rhythm, Normal S1 S2 Gastrointestinal: Normal bowel sounds, No tenderness Musculoskeletal: No tenderness Integumentary: No rashes Neurological: Normal gait, Normal speech, Normal strength at 5/5 x4 extr, Normal tone, Normal affect Lymphatics: No axilla or inguinal lymphadenopathy - Studies Laboratory Data (last 24 hrs) 03/31/21 08:39: PT 15.9 H, INR 1.38, APTT 33.0 03/31/21 08:39: WBC 8.90, Hgb 9.0 L, Hct 29.9 L, Plt Count 473 H 03/31/21 08:39: Sodium 137, Potassium 4.8, BUN 20 H, Creatinine 1.13, Glucose 174 H, Magnesium 1.8, Total Bilirubin 0.4, AST 15, ALT 11 L, Alkaline Phosphatase 121 H, Lipase 84 Assessment and Plan - Problems (Diagnosis) (1) Hemoptysis Current Visit: Yes Status: Acute Plan: Will hold the eliquis. This is unfortunate. However considering his history of lung cancer this may be appropriate. Will have Dr. Morales take a look at the patient. Will give him robitussin ac to suppress any coughing. (2) HTN (hypertension) Current Visit: Yes Status: Acute Plan: restart home medications. Qualifiers: Hypertension type: primary hypertension Qualified Code(s): I10 - Essential (primary) hypertension (3) Hyperlipidemia Current Visit: Yes Status: Chronic Plan: continue his statin therapy. will check a fasting lipid profile. Qualifiers: Hyperlipidemia type: unspecified Qualified Code(s): E78.5 - Hyperlipidemia, unspecified (4) Atrial fibrillation Onset Date: 04/06/18 Current Visit: No Status: Acute Plan: continue beta connie. will hold eliquis for the above reason. Qualifiers: Atrial fibrillation type: paroxysmal Qualified Code(s): I48.0 - Paroxysmal atrial fibrillation Discharge Plan: Home Plan to discharge in: 48 Hours - Advance Directives Does patient have a Living Will: No Does patient have a Durable POA for Healthcare: No - Code Status/Comfort Care Code Status Assessed: No Code Status: Full Code Physician Review: Patient Assessed, Agree with Above Assessment and Plan Critical Care: No Time Spent Managing Pts Care (In Minutes): 45
[2021-03-31 14:46] VITALS: BMI 27.5
[2021-03-31] MEDS: FAMOTIDINE 20 MG TAB PO SCH (16:51)
[2021-03-31] MEDS: ATORVASTATIN 40 MG TAB PO SCH (21:08)
[2021-04-01 06:28] LABS: Absolute Lymphocytes (CBC) 1.1 K/uL (0.7-4.9); Basophils % 0.8 % (0-1.3); Hematocrit 23.4 % (39.6-49.0); MPV 7.2 fL (7.6-11.3)
[2021-04-01 06:49] LABS: Albumin 2.3 g/dL (3.4-5.0); Bilirubin Total 0.3 mg/dL (0.2-1.0); Potassium 4.7 mmol/L (3.5-5.1); Protein, Total 5.8 g/dL (6.4-8.2); Thyroid Stimulating Hormone 1.02 uIU/mL (0.360-3.740)
[2021-04-01 08:15] LABS: Blood Morphology Comment NOTED (NOT SEEN); Hypochromasia 1+; Platelet Estimate INCR; White Blood Cell Scan OK (OK)
[2021-04-01 08:36] LABS: MPV 6.8 fL (7.6-11.3); RBC Red Blood Cell Count 3.91 M/uL (4.33-5.43)
[2021-04-01 08:58] LABS: Ferritin 21.9 ng/mL (26-388)
[2021-04-01 10:30] LABS: Blood Morphology Comment NOTED (NOT SEEN); Hypochromasia 1+; Platelet Estimate INCR; White Blood Cell Scan OK (OK)
--- NOTE | 2021-04-01 13:50 | P.DS ---
Admission Date: 03/31/21 Discharge Date: 04/01/21 Primary Care Provider: Hiral Starr Disposition: ROUTINE DISCHARGE Discharge Condition: GOOD Reason for Admission: hemoptysis - Problems (1) Hemoptysis Current Visit: Yes Status: Acute (2) HTN (hypertension) Current Visit: Yes Status: Acute Qualifiers: Hypertension type: primary hypertension Qualified Code(s): I10 - Essential (primary) hypertension (3) Hyperlipidemia Current Visit: Yes Status: Chronic Qualifiers: Hyperlipidemia type: unspecified Qualified Code(s): E78.5 - Hyperlipidemia, unspecified (4) Atrial fibrillation Onset Date: 04/06/18 Current Visit: No Status: Acute Qualifiers: Atrial fibrillation type: paroxysmal Qualified Code(s): I48.0 - Paroxysmal atrial fibrillation Brief History of Present Illness: Patient is a pleasant mostly Chilean speaking gentleman. He has a pmh of atrial fib, cad, htn and hyperlipidemia. He comes to the hospital with one day of coughing up bright red blood. The patient has been having nocturnal coughing for the past 4 days. He has been on eliquis for the atrial fib as well. Today is the only day that he has noticed any blood. States it has only been a small amount. Gestures approx 4-6 oz. He did spit up some in front of me. He has a history of lung surgery on the right side. He had a pneumonectomy for cancer. Was treated in [place] By a doctor fox. Hospital Course: Patient is doing well. Have discussed him with Dr. Morales. The concern is that this is a resurgence of his cancer. His has brought paper work. He was seen by a Dr. Kirk Cooley in [facility] for his cancer. The patient is iron deficent. Plan is to give him some iron for the anemia. He should call for follow up. I have also called an tried to discuss the patient with Dr. Cooley Vital Signs/Physical Exam: Temp Pulse Resp BP Pulse Ox 98.2 F 77 18 97/53 L 100 04/01/21 12:00 04/01/21 12:00 04/01/21 12:00 04/01/21 12:00 04/01/21 12:00 General: Alert, In no apparent distress HEENT: Atraumatic, PERRLA, EOMI Neck: Supple, JVD not distended Respiratory: Clear to auscultation bilaterally, Normal air movement Cardiovascular: Regular rate/rhythm, Normal S1 S2 Gastrointestinal: Normal bowel sounds, No tenderness Musculoskeletal: No tenderness Integumentary: No rashes Neurological: Normal speech, Normal tone, Normal affect Lymphatics: No axilla or inguinal lymphadenopathy Laboratory Data at Discharge: WBC 9.30 K/uL (4.3-10.9) D 04/01/21 08:28 Hgb 8.3 g/dL (13.6-17.9) L 04/01/21 08:28 Hct 27.0 % (39.6-49.0) L D 04/01/21 08:28 Plt Count 476 K/uL (152-406) H 04/01/21 08:28 PT 15.9 SECONDS (9.5-12.5) H 03/31/21 08:39 INR 1.38 03/31/21 08:39 APTT 33.0 SECONDS (24.3-36.9) 03/31/21 08:39 Sodium 141 mmol/L (136-145) 04/01/21 05:24 Potassium 4.7 mmol/L (3.5-5.1) 04/01/21 05:24 BUN 27 mg/dL (7-18) H 04/01/21 05:24 Creatinine 1.24 mg/dL (0.55-1.3) 04/01/21 05:24 Glucose 101 mg/dL (74-106) 04/01/21 05:24 Magnesium 1.8 mg/dL (1.8-2.4) 03/31/21 08:39 Total Bilirubin 0.3 mg/dL (0.2-1.0) 04/01/21 05:24 AST 11 U/L (15-37) L 04/01/21 05:24 ALT 9 U/L (12-78) L 04/01/21 05:24 Alkaline Phosphatase 95 U/L (45-117) 04/01/21 05:24 Triglycerides 68 mg/dL (<150) 04/01/21 05:24 Cholesterol 91 mg/dL (<200) 04/01/21 05:24 HDL Cholesterol 34 mg/dL (40-60) L 04/01/21 05:24 Cholesterol/HDL Ratio 2.68 04/01/21 05:24 Lipase 84 U/L (73-393) 03/31/21 08:39 Home Medications: Aspirin 81 mg PO DAILY #30 tab.chew 05/12/18 Atorvastatin Calcium [Lipitor] 80 mg PO BEDTIME #30 tab 05/12/18 Doxycycline Hyclate 100 mg PO BID #20 tablet 02/05/19 Budesonide/Formoterol Fumarate [Symbicort 80-4.5 Mcg Inhaler] 2 puff IH DAILY 03/31/21 Lisinopril [Zestril] 10 mg PO DAILY 03/31/21 Tamsulosin [Flomax*] 1 tab PO DAILY 03/31/21 Diet: Regular Activity: Ad bri Followup: Hiral Sanchez RN [Primary Care Provider] - Kirk COOLEY MD [OUTSIDE PHYSICIAN] - (Hemoncologist in [facility] ) Time spent managing pt's care (in minutes): 45
[2021-04-01] MEDS: SOD FERRIC GLUC COMPLX/SUCROSE 125 MG in NA CHLORIDE 0.9% 100 ML IV SCH (14:30)
--- NOTE | 2021-04-01 15:20 | P.CNS ---
Date of Consult: 04/01/21 Reason for Consult: Hemoptysis Primary Care Provider: Hiral Starr Chief Complaint: hemoptysis History of Present Illness: Pt is 70 yrs of age DX pneumonectomy for lung cancer onthe R side 2 yrs aW hemoptyis for past coupleof days/ PT does not f/u with Dr. Kaleb Gatesgn better , Micorocytic anemia/ Hx of anemiano W/u doen/ No hemoptysis now Allergies levofloxacin [From Levaquin] Allergy (Verified 02/04/19 06:44) Itching/Hives/Rash Home Medications: Aspirin 81 mg PO DAILY #30 tab.chew 05/12/18 Atorvastatin Calcium [Lipitor] 80 mg PO BEDTIME #30 tab 05/12/18 Doxycycline Hyclate 100 mg PO BID #20 tablet 02/05/19 Budesonide/Formoterol Fumarate [Symbicort 80-4.5 Mcg Inhaler] 2 puff IH DAILY 03/31/21 Lisinopril [Zestril] 10 mg PO DAILY 03/31/21 Tamsulosin [Flomax*] 1 tab PO DAILY 03/31/21 - Past Medical/Surgical History Diabetic: No -: Lip CA -: hyperlipidemia -: Afib -: Lung Cancer -: CAD -: Lip surg -: Right Lobectomy -: Heart stents -: Bypass - Social History Smoking Status: Current every day smoker Alcohol use: No CD- Drugs: No Caffeine use: Yes Place of Residence: Home Review of Systems 10-point ROS is otherwise unremarkable Physical Examination Temp Pulse Resp BP Pulse Ox 98.2 F 77 18 97/53 L 100 04/01/21 12:00 04/01/21 12:00 04/01/21 12:00 04/01/21 12:00 04/01/21 12:00 General: Alert, Oriented x3, Cooperative Respiratory: Diminished (R side) Cardiovascular: No edema, Regular rate/rhythm Gastrointestinal: Normal bowel sounds, Soft and benign Musculoskeletal: No clubbing Integumentary: No rashes, No breakdown - Problems (1) Hemoptysis Current Visit: Yes Status: Acute Plan: PT is 70 yrs of age aW hemoptysis ans microcytic anemia/ Denies HX of GI bleeding on Eliquis in now stopped. Agree with iron replacement/ DW daughter agree to Bronch am / Will need GI CORNEJO/ Chem reviewed/ Pt agreed to Bronch am/ labs and CT rev/ R penumonectomy
[2021-04-01] MEDS: FAMOTIDINE 20 MG TAB PO SCH (17:11)
[2021-04-01] MEDS: ATORVASTATIN 40 MG TAB PO SCH (20:14)
[2021-04-02 07:16] LABS: Absolute Lymphocytes (CBC) 1.9 K/uL (0.7-4.9); Basophils % 0.6 % (0-1.3); Lymphocytes % 16.6 % (15.3-44.8); MPV 7.3 fL (7.6-11.3); RBC Red Blood Cell Count 4.01 M/uL (4.33-5.43)
[2021-04-02 07:28] LABS: Albumin 2.9 g/dL (3.4-5.0); Bilirubin Total 0.5 mg/dL (0.2-1.0); Potassium 4.2 mmol/L (3.5-5.1); Protein, Total 7.4 g/dL (6.4-8.2)
[2021-04-02 08:05] VITALS: TEMP 98
[2021-04-02] MEDS ORDERED: SOD FERRIC GLUC COMPLX/SUCROSE 125 MG in NA CHLORIDE 0.9% 100 ML IV SCH (09:00)
[2021-04-02] MEDS: SOD FERRIC GLUC COMPLX/SUCROSE 125 MG in NA CHLORIDE 0.9% 100 ML IV SCH (09:36)
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
[2021-04-02 11:52] VITALS: BP 114/55
[2021-04-02 13:41] VITALS: O2SAT 99
== END 2021-04-02 13:00 | disposition home or self-care (01) | DRG 204 ==
LOC: ER 07:50 → ERHOLD 13:19 → 2ND 13:56
PROVIDERS: ADMIT Internal Medicine; ATTEND Internal Medicine
DX: R04.2 Hemoptysis (principal); I10 Essential (primary) hypertension; E78.5 Hyperlipidemia, unspecified; I48.0 Paroxysmal atrial fibrillation; I25.10 Atherosclerotic heart disease of native coronary artery without angina pectoris; D50.9 Iron deficiency anemia, unspecified; Z85.118 Personal history of other malignant neoplasm of bronchus and lung; Z90.2 Acquired absence of lung [part of]; Z79.01 Long term (current) use of anticoagulants; Z20.822 Contact with and (suspected) exposure to COVID-19
CPT/HCPCS: 36415; 71045; 71275; 80048; 80053; 80061; 80076; 82728; 83540; 83690; 83735; 83880; 84443; 84466; 84484; 85025; 85027; 85610; 85730; 86850; 86900; 86901; 87040; 93005; 99285; J2916; Q9967; U0003

== ENCOUNTER 2021-12-13 14:21 | Observation (INO) | payer OTHER ==
--- OUTSIDE RECORDS SUMMARY | 2021-12-13 14:25 | XMS REPORT | Continuity of Care Document ---
:[address] [facility] t Address [address] [place] [address] Care Team Providers Name Role Phone Josselin Overton Primary Care Physician Marilia DELATORRE Attending Clinician Unavailable DEB Attending Clinician Unavailable SITA AGUILAR Attending Clinician Unavailable PAGE DELATORRE Attending Clinician Unavailable Jeff Attending Clinician WHITNEY BOYD Attending Clinician Unavailable Jordana HINES Attending Clinician Unavailable Jordana HINES Attending Clinician Unavailable Raymundo COMBS Attending Clinician Jordana Hines MD Attending Clinician ERNST Attending Clinician Unavailable CHANELL Attending Clinician Unavailable NANDINI Attending Clinician Unavailable Chanell STEELE Attending Clinician Alli Almonte Attending Clinician Payers Payer Name Policy Type Policy Number Effective Date Expiration Date S iban [facility] MEDIC[facility] [id number] 2021 ADVANTAGE 00:00:00 [facility] MEDICARE [id number] 2020 COMPLETE CHOICE 00:00:00 Problems Condition Condition Condition Status Onset Resolution Last Treating Co mments Source Name Details Category Date Date Treatment Clinician Date 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 Ph ysici ans Postoperat Postoperat Problem Active U T luis f luis f Physici examinatio examinatio an s n n S/P heart S/P heart Problem Active [facility] valve valve Physici repair repair ans HTN HTN Problem Active UT (hypertens (hypertens Ph ysici ion) ion) ans Lower Lower Problem Active [facility] extremity extremity Phys ici edema edema ans Lower Lower Problem Active [facility] extremity extremity Phys ici pain pain ans No known No known Disease Unive rs active active ity of problems problems [facility] Allergies, Adverse Reactions, Alerts Allergy Allergy Status Severity Reaction(s) Onset Inactive Treating Comm ents Source Name Type Date Date Clinician NO KNOWN Drug Active Univers ALLERGIE Class ity of S [facility] Social History Social Habit Start Date Stop Date Quantity Comments Source Exposure to Not sure [facility] SARS-CoV-2 (event) Medica l [place] Sex Assigned At [birth year] [facility] 00:00:00 00:00:00 Smoking Status Start Date Stop Date Source Tobacco smoking consumption unknown [facility] Former smoker [facility] Medications Ordered Filled Start Stop Current Ordering [...] by ity of tablet 14:39: mouth 2 [place] 14 (two) Medical times Branch daily. atorvastati Yes 40mg Take 40 mg Univers n 40 mg 7-14 by mouth ity of tablet 14:39: at [place] 14 bedtime. Medical Branch budesonide/ Yes Inhale. Uni vers formoterol 7-14 ity of fumarate 14:39: [place] (SYMBICORT 14 Medical INHALE) Branch rivaroxaban Yes 15mg Take 15 mg Univers (XARELTO) 7-14 by mouth 2 ity of 15 mg 14:39: (two) [place] tablet 14 times Medical daily. Branch doxycycline Yes 100mg Take 100 U nivers 100 mg EC 7-14 mg by ity of tablet 14:39: mouth 2 [place] 14 (two) Medical times Branch daily. atorvastati Yes 40mg Take 40 mg Univers n 40 mg 7-14 by mouth ity of tablet 14:39: at [place] 14 bedtime. Medical Branch budesonide/ Yes Inhale. Uni vers formoterol 7-14 ity of fumarate 14:39: [place] (SYMBICORT 14 Medical INHALE) [place] ASPIRIN 0 Yes 81mg Take 81 mg Univ ers ORAL 7-14 by mouth. ity of 14:39: [address] tamsulosin Yes .4mg Take 0.4 Uni vers HCl 7-14 mg by ity of (TAMSULOSIN [place] [address] [place] [address] Branch lisinopriL Yes 10mg Take 10 mg U nivers 10 mg 7-14 by mouth ity of tablet 14:39: daily. [address] levETIRAcet Yes 500mg Take 500 U nivers am 500 mg 7-14 mg by ity of tablet 14:39: mouth 2 [place] [address] (two) Medical times [place] daily. ASPIRIN 0 Yes 81mg Take 81 mg Univ ers ORAL 7-14 by mouth. ity of 14:39: [address] tamsulosin Yes .4mg Take 0.4 Uni vers HCl 7-14 mg by ity of (TAMSULOSIN 14:[place] [address] [place] [address] lisinopriL Yes 10mg Take 10 mg U nivers 10 mg 7-14 by mouth ity of tablet 14:39: daily. [address] levETIRAcet Yes 500mg Take 500 U nivers am 500 mg 7-14 mg by ity of tablet 14:39: mouth 2 [place] [address] (two) Medical times [place] daily. Aspir-Low Aspir-Low Yes UT 81 MG Oral 81 MG Oral Phy sici Tablet Tablet ans Delayed Delayed Release Release Tamsulosin Tamsulosin Yes UT HCl - 0.4 HCl - 0.4 Physi ci MG Oral MG Oral ans Capsule Capsule Clopidogrel Clopidogrel Yes U T Bisulfate Bisulfate Physi ci 75 MG Oral 75 MG Oral ans Tablet Tablet NIFEdipine NIFEdipine Yes UT ER 30 MG ER 30 MG Physici Oral Tablet Oral Tablet a ns Extended Extended Release 24 Release 24 Hour Hour levETIRAcet levETIRAcet Yes U T am 500 MG am 500 MG Physi ci Oral Tablet Oral Tablet a ns Acetaminoph Acetaminoph Yes U T en-Codeine en-Codeine Phy sici #3 300-30 #3 300-30 ans MG Oral MG Oral Tablet Tablet Lisinopril Lisinopril Yes 2 QD TAKE 2 U T 2.5 MG Oral 2.5 MG Oral TABLET Physici Tablet Tablet Daily ans TDD:5mg Gabapentin Gabapentin Yes MD 100 MG Oral 100 MG Oral P hysici Capsule Capsule ans Vital Signs Vital Name Observation Time Observation Value Comments Source Body height 2021-05-14 167.6 cm [facility] 14:11:18 Body weight 2021-05-14 70.909 kg [facility] 14:11:18 BMI 2021-05-14 25.23 kg/m2 [facility] 14:11:18 Systolic blood 2021-03-13 148 mm[Hg] [facility] 21:37:00 [facility] Diastolic blood 2021-03-13 71 mm[Hg] [facility] o pressure 21:37:00 [facility] Heart rate 2021-03-13 75 /min [facility] 21:37:00 [facility] Body temperature 2021-03-13 36.22 Macario [facility] 21:37:00 [facility] Respiratory rate 2021-03-13 18 /min [facility] 21:37:00 [facility] Body height 2021-03-13 170.2 cm [facility] 21:37:00 [facility] Body weight 2021-03-13 83.825 kg [facility] 21:37:00 [facility] BMI 2021-03-13 28.94 kg/m2 [facility] 21:37:00 [facility] Oxygen saturation 2021-03-13 95 /min [facility] in Arterial blood 21:37:00 [facility] by Pulse oximetry Branch BP Systolic 2019-05-04 109 mm[Hg] Location: RUE; [facility] 16:10:00 Position: Sitting BP Diastolic 2019-05-04 62 mm[Hg] Location: RUE; [facility] 16:10:00 Position: Sitting Height 2019-05-04 67 [in_us] [facility] 16:10:00 Weight 2019-05-04 174.5 [lb_av] [facility] 16:10:00 Body Mass Index 2019-05-04 27.33 kg/m2 [facility] Calculated 16:10:00 Heart Rate 2019-05-04 80 /min Location: R [facility] 16:10:00 Brachial Artery; Quality: Normal Respiration Rate 2019-05-04 16 /min Quality: Normal [facility] 16:10:00 BP Systolic 2019-05-02 122 mm[Hg] [facility] 16:29:00 BP Diastolic 2019-05-02 71 mm[Hg] [facility] 16:29:00 Weight 2019-05-02 177 [lb_av] [facility] 16:29:00 Body Mass Index 2019-05-02 27.72 kg/m2 [facility] Calculated 16:29:00 Heart Rate 2019-05-02 82 /min [facility] 16:29:00 Respiration Rate 2019-05-02 14 /min [facility] 16:29:00 Temperature 2019-05-02 97.1 [degF] [facility] 16:29:00 O2 SAT 2019-05-02 100 % [facility] 16:29:00 BP Systolic 2019-04-04 125 mm[Hg] [facility] 15:37:00 BP Diastolic 2019-04-04 65 mm[Hg] [facility] 15:37:00 Weight 2019-04-04 180 [lb_av] [facility] 15:37:00 Body Mass Index 2019-04-04 28.19 kg/m2 [facility] Calculated 15:37:00 Temperature 2019-04-04 97.1 [degF] [facility] 15:37:00 Heart Rate 2019-04-04 75 /min [facility] 15:37:00 Respiration Rate 2019-04-04 14 /min [facility] 15:37:00 O2 SAT 2019-04-04 100 % [facility] 15:37:00 Height 2019-04-04 67 [in_us] [facility] 15:37:00 Procedures Procedure Date / Time Performed Performing Clinician [facility] e BRONCHOSCOPY 2021-05-14 00:00:00 Dago Boyd [facility] CHEST W CONTRAST 2021-05-02 20:08:29 Annamarie Fonseca [facility] [N] 2D Echo complete, with 2019-05-06 00:00:00 [facility] Doppler 68680 [N] Venous Duplex Lower 2019-05-06 00:00:00 [facility] Bilateral Complete PFTs w/DLCO and 2019-04-05 00:00:00 [facility] Lung Volumes History of Aortic Valve [facility] Replacement Plan of Care Planned Activity Planned Date Details Comments Source Diagnostic Test 2019-05-06 00:00:00 [N] 2D Echo complete, [facility] Pending with Doppler 80494 [code = [N] 2D Echo complete, with Doppler 44321] Diagnostic Test 2019-05-06 00:00:00 [N] Venous Duplex [facility] Pending Lower Bilateral [code = [N] Venous Duplex Lower Bilateral] Diagnostic Test 2019-05-06 00:00:00 [N] 2D Echo complete, [facility] Pending with Doppler 38587 [code = [N] 2D Echo complete, with Doppler 61083] Diagnostic Test 2019-05-06 00:00:00 [N] Venous Duplex [facility] Pending Lower Bilateral [code = [N] Venous Duplex Lower Bilateral] Encounters Start End Encounter Admission Attending Care Care Encounter Source Date/Time Date/Time Type Type Clinicians Facility Department ID 2021-09-26 Outpatient NANDINI, THUAN [facility] [id number] [place] 01:05:11 [facility] 2021-08-20 Outpatient NANDINI, THUAN [facility] [id number] [place] 01:04:31 [facility] 2021-08-08 Outpatient DEB, [facility] [id number] [place] 01:03:17 PUSHAN [facility] 2021-08-06 Outpatient NANDINI, THUAN [facility] [id number] [place] 01:04:53 [facility] 2021-07-23 Outpatient NANDINI, THUAN [facility] [id number] [place] 01:03:56 [facility] 2021-07-03 Outpatient AGUILAR, [facility] [id number] MH HH 08:45:16 [facility] 2019-04-12 [id number] 05:53:00 2021-06-27 2021-07-19 Outpatient NANDINI, THUAN [facility] [id number] [facility] 13:40:00 18:00:00 2021-07-02 2021-07-02 EXT [facility] OP Aguilar, EXT MSRDP [id number] [place] 00:00:00 00:00:00 [facility] [id number] H [facility] [id number] 2021-06-14 2021-06-14 Outpatient DEB, [facility] PUL [id number] [facility] 07:03:00 12:46:00 PUSHAN 2021-06-12 2021-06-12 Outpatient R FLORAADILENEDEVON [facility] [id number] Univers 16:00:00 16:00:00 GABRIELLA HINES [id number] [facility] 2021-06-12 2021-06-12 Outpatient R FLORA ADILENERICassandra [facility] [id number] [facility] 16:00:00 16:00:00 FLORA ADILENERICassandra [facility] 2021-05-31 2021-05-[address] [facility] OP Deb, EXT M[facility] [id number] MD 00:00:00 00:00:00 Pushan LOCATION [id number] H ealth [id number] 2021-04-23 2021-05-22 Outpatient NANDINI, THUAN [facility] [id number] [facility] 14:53:00 23:59:00 2021-05-14 2021-05-14 Outpatient DEB, [facility] PUL [id number] [facility] 07:31:00 11:15:00 PUSHAN 2021-05-09 2021-05-09 EXT MHH OP Deb, EXT M[facility] [id number] MD 00:00:00 00:00:00 Pushan LOCATION [id number] H ealth [id number] 2021-05-01 2021-05-[address] [facility] OP Fonseca, Annamarie EXT MSRDP [id number] MD 00:00:00 00:00:00 LOCATION [id number] H ealth [id number] 2021-03-22 2021-03-[address] [facility] [id number] [facility] 00:00:00 00:00:00 Strahil Jordana [place] [id number] ity [id number] Profess[place] [id number] Ms dic[address] 2021-03-13 2021-03-[address] [facility] [id number] Univers 16:31:31 16:51:31 Visit Strahil T [place] [id number] [id number] [id number] [address] 2021-03-13 2021-03-13 Outpatient R FLORA GABRIELLA [facility] [id number] Univers 16:20:00 16:20:00 RICARDOJEANNESHIKHA GABRIELLA [id number] ity [facility] 2021-03-13 2021-03-13 Outpatient R FLORAADILENERICassandra [facility] [id number] Univers 16:20:00 16:20:00 [facility]IVIANA [facility] 2021-03-06 Outpatient R [facility] [id number] Univers 19:30:00 19:30:00 [id number] ity [facility] [place] [facility] 2021-03-06 2021-03-06 Outpatient R ADILENE HINESRICassandra [facility] [id number] Univers 19:30:00 19:30:00 [facility]ARD[facility]ADILENE [facility] 2021-03-05 2021-03-05 Outpatient R [facility] [id number] Univers 15:15:00 15:15:00 [id number] ity [facility] [place] [facility] 2021-03-05 2021-03-05 Outpatient R [facility] [id number] Univers 15:15:00 15:15:00 ity [facility] [place] [facility] 2021-03-04 2021-03-04 Outpatient R [facility] [id number] Univers 08:30:00 08:30:00 [id number] ity [facility] [place] [facility] 2021-03-04 2021-03-04 Outpatient R [facility] [id number] Univers 08:30:00 08:30:00 ity [facility] [place] [facility] 2021-03-01 2021-03-01 Outpatient R [facility] [id number] Univers 08:30:00 08:30:00 [id number] [facility] 2021-02-20 2021-02-20 Outpatient R GABRIELLA HINES [facility] [id number] Univers 11:40:00 11:40:00 [facility]A HINES [id number] [facility] 2021-02-20 2021-02-20 Outpatient R ADILENE HINESRICassandra [facility] [id number] Univers 11:40:00 11:40:00 GABRIELLA HINES [facility] 2021-02-09 2021-02-09 Outpatient [facility] [id number] Univers 19:30:00 19:30:00 [id number] [facility] 2021-02-09 2021-02-09 [facility] [id number] Univers 19:30:00 19:30:00 GABRIELLA HINES [facility] 2021-01-30 2021-01-30 Outpatient R ADILENE HINESRICassandra [facility] [id number] Univers 09:00:00 09:00:00 GABRIELLA HINES [facility] 2019-05-04 2019-05-04 Appointmen GOVIND DUKES Multispecia [id number] MD 15:40:00 15:40:00 t; CHASE DUKES lty - Phy sici PRAKASH, M.D. [place] ans M.D. 2019-05-02 2019-05-02 Appointmen GOVIND WU Cardiothora [id number] MD 14:30:00 14:30:00 t; CHAVO WU cic & Antione TONY M.D. Vascular roland Torres Surgery - [facility] 2019-04-26 2019-04-26 Appointmen GOVIND DELATORRE UTP [id number] [place] 10:00:00 10:00:00 t; NANDINI, THUANBrian M.D. ans 2019-04-08 2019-04-08 Outpatient [facility] [id number] [facility] 10:15:00 10:15:00 2019-04-08 2019-04-08 EXT MHH OP Chanell, EXT M[facility] [id number] [place] 00:00:00 00:00:00 Chavo LOCATION [id number] H ealt [id number] 2019-04-04 2019-04-04 AppointGOVIND Muñoz UTP [id number] [place] 14:30:00 14:30:00 t; CHAVO WU Phy sici PHILIP, M.D. ans M.D. 2019-03-31 2019-03-31 Outpatient [facility] [id number] [facility] 13:39:00 13:39:00 2019-03-31 2019-03-31 AppointGOVIND Morillo UTP [id number] [place] 13:00:00 13:00:00 t; THUAN DELATORRE M.D. P hysici SYED, M.D. ans 2019-02-19 2019-02-19 Inpatient U [facility] CAR [id number] [facility] 17:06:00 14:30:00 2019-02-19 2019-02-19 Outpatient [facility] DOMINGO [id number] [facility] 14:30:00 14:30:00 2019-02-19 2019-02-19 EXT MH OP Suzy EXT MSRDP [id number] [place] 00:00:00 00:00:00 Kleber [id number] [facility] [id number] Results Test Description Test Time Test Comments Results Result Comments Source CBC W/AUTO DIFF WITH PLATELETS 2021-12-12 04:27:48 Test Item Value Reference Range Interpretation Comme nts WBC (test code = 1001) 10.4 K/UL 3.5-11.0 RBC (test code = 1002) 4.17 M/UL 4.50-6.10 L HEMOGLOBIN (test code = 1003) 7.9 G/DL 13.5-17.0 L HEMATOCRIT (test code = 1004) 27.1 % 40.0-51.0 L MCV (test code = 1005) 65.0 fL 80.0-99.0 L MCH (test code = 1006) 18.9 PG 25.0-33.0 L MCHC (test code = 1007) 29.2 G/DL 31.0-36.0 L RDW (test code = 1038) 16.8 % 11.5-15.0 H NEUTROPHILS (test code = 1008) 81.8 % LYMPHOCYTES (test code = 1010) 7.8 % MONOCYTES (test code = 1011) 9.5 % EOSINOPHILS (test code = 1012) 0.0 % BASOPHILS (test code = 1013) 0.9 % PLATELET COUNT (test code = 485 K/UL 130-400 H 1015) ABSOLUTE NEUTROPHILS (test code 8.42 K/UL 1.50-7.50 H = 1066) ABSOLUTE LYMPHOCYTES (test code 0.70 K/UL 1.00-4.00 L = 1067) ABSOLUTE MONOCYTES (test code = 1.14 K/UL 0.20-1.00 H 1068) ABSOLUTE EOSINOPHILS (test code 0.02 K/UL 0.00-0.50 = 1040) ABSOLUTE BASOPHILS (test code = 0.03 K/UL 0.00-0.20 1069) ABS IMMATURE GRANULOCYTES (test 0.05 K/UL 0.00-0.10 code = 1020) ABS NUCLEATED RBCS (test code = 0.00 K/UL 0.00-0.11 83016) COMMENTS (test code = 1016) (NOTE) SLIGHT ANISOCYTOSIS FEW E LLIPTOCYTES MODERATE H YPOCHROMASIA MARKED NV CROCYTOSIS SLIGHT POIK ILOCYTOSIS FEW SCHISTO CYTES PLATELETS APPEA R INCREASED UNLESS OTHERWIS E INDICATED, ALL TESTING PERFORM [facility] [address] [place] [address] LABORATO RY DIRECTOR: NINOSKA WHEELER M.D. CLIA NUMBER [id number] CAP ACCREDITATION N O. [id number] VITAMIN D, 25 [id number] 06:29:03 Test Item Value Reference Range Interpretation Comments VITAMIN D, 25 OH 41 NG/ML SEE BELOW NOTE: 25-H YDROXYVITAMIN D (test code = 4958) ASSAY INC LUDES 25-HYDROXYVITAM IN D2 AND D3. METHOD OLOGY IS CHEMILUMINESCEN T IMMUNOASSAY. INTERPRE TIVE RANGES PEDIATRIC (<17 YEARS) . . . . . . . . . . . NG/ML 20-100A DULT: INSUFFICIENT . . . . . . . . . . . . . . N G/ML <20 SUBOPTI MAL . . . . . . . . . . . . . . . NG/ML 20-29 OPTIMAL . . . . . . . . . . . . . . . . . NG/ML 30-100 UNLESS OTHERW ISE INDICATED, ALL TESTING PERFORMED [facility] PATH[facility] [address] [place] [address] LABORATORY DIRE CTOR: Timothy MCKNIGHT. CLIA NUMBER [id number] CAP ACCREDITATION N O. [id number] TSH, THIRD [id number] 05:23:02 Test Item Value Reference Range Interpretation Comments TSH, THIRD GENERATION (test code 2.240 UIU/ML 0.400-4.100 = 2821) COMPREHENSIVE METABOLIC [id number] 03:38:54 Test Item Value Reference Range Interpretation Comments GLUCOSE (test code = 103 MG/DL 70-99 H 2216) BUN (test code = 10 MG/DL 03-11) CREATININE (test 1.02 MG/DL 0.80-1.40 code = 2213) eGFR (2020 CKD-EPI) 79 ML/MIN/1.73 >60 (test code = 86289) CALC BUN/CREAT (test 10 RATIO 6-28 code = 2235) SODIUM (test code = 133 MEQ/L 106-579 4797) POTASSIUM (test code 4.5 MEQ/L 3.5-5.4 = 2227) CHLORIDE (test code 98 MEQ/L 95-107 = 2214) CARBON DIOXIDE (test 25 MEQ/L 19-31 code = 2206) CALCIUM (test code = 9.7 MG/DL 8.5-10.5 2208) PROTEIN, TOTAL (test 6.8 G/DL 6.1-8.3 code = 222) ALBUMIN (test code = 3.1 G/DL 3.5-5.2 L 2200) CALC GLOBULIN (test 3.7 G/DL 1.9-3.7 code = 2240) CALC A/G RATIO (test 0.8 RATIO 1.0-2.6 L code = 2234) BILIRUBIN, TOTAL 0.4 MG/DL See_Comment [Automated message] (test code = 220) The syste m which generated this result transmit candace reference range : <=1.2. The refe rence range was not u sed to interpret th is result as normal/abnormal . ALKALINE PHOSPHATASE 123 U/L 40-125 (test code = 2203) AST (test code = 13 U/L 9-50 2217) ALT (test code = 9 U/L 5-50 2218) HEMOGLOBIN [id number] 03:18:26 Test Item Value Reference Range Interpretation Comments HEMOGLOBIN A1c (test 6.6 % 4.2-5.6 H NICARAGUAN DIABETES code = 23154) ASSOCIATION IDELINES FOR HGB A1C: PREDIABETES/INC REASED RISK . . . . . . . 5.7 -6.4% DIAGNOSIS OF D IABETES . . . . . . . . . > =6.5% WITH CONFIRM ATION OR APPROPRIATE SYM PTOMS NOTE: ASSAY MAY BE AFFECTED BY HEMOGLOBINOP ATHIES (SICKLE MACARIO L ANEMIA, S-C DISEASE, OTHERS ) OR ARTIFICIALLY LO WERED BY DECREASED RED C ELL SURVIVAL (HEMOLYTIC ANEM IAS, BLOOD LOSS, ETC.) . CONSIDER ALTERNATE TESTI NG OR LABORATORY CONS ULTATION. CBC W/AUTO DIFF WITH [id number] 03:11:33 Test Item Value Reference Range Interpretation Comments WBC (test code = 7.3 K/UL 3.5-11.0 1001) RBC (test code = 4.03 M/UL 4.50-6.10 L 1002) HEMOGLOBIN (test code 8.4 G/DL 13.5-17.0 L = 1003) HEMATOCRIT (test code 28.1 % 40.0-51.0 L = 1004) MCV (test code = 69.7 fL 80.0-99.0 L 1005) MCH (test code = 20.8 PG 25.0-33.0 L 1006) MCHC (test code = 29.9 G/DL 31.0-36.0 L 1007) RDW (test code = 20.8 % 11.5-15.0 H 1038) NEUTROPHILS (test 77.2 % code = 1008) LYMPHOCYTES (test 8.4 % code = 1010) MONOCYTES (test code 12.3 % = 1011) EOSINOPHILS (test 0.8 % code = 1012) BASOPHILS (test code 0.7 % = 1013) IMMATURE GRANULOCYTES 0.6 % (test code = 1036) NUCLEATED RBCS (test 0.0 /100 See_Comment [Autom ated code = 1065) WBC'S message] The sy stem which generated this result transmitted reference range : 0.0. The refere nce range was not u sed to interpret th is result as normal/abnormal . PLATELET COUNT (test 584 K/UL 130-400 H code = 1015) ABSOLUTE NEUTROPHILS 5.61 K/UL 1.50-7.50 (test code = 1066) ABSOLUTE LYMPHOCYTES 0.61 K/UL 1.00-4.00 L (test code = 1067) ABSOLUTE MONOCYTES 0.89 K/UL 0.20-1.00 (test code = 1068) ABSOLUTE EOSINOPHILS 0.06 K/UL 0.00-0.50 (test code = 1040) ABSOLUTE BASOPHILS 0.05 K/UL 0.00-0.20 (test code = 1069) ABS IMMATURE 0.04 K/UL 0.00-0.10 GRANULOCYTES (test code = 1020) ABS NUCLEATED RBCS 0.00 K/UL 0.00-0.11 (test code = 27343) XRAY Chest 2 views [id number] 13:39:00EXAM: XR CHEST 2 VIEWSDATE: 05/02/2019 14:44 CDTINDICATION: Status post pneumonectomy.COMPARISON: CXR 04/17/2019TECHNIQUE: PA and lateral chest radiographsFINDINGS:Problem with PACS integrating study with dictation.Denilson Quiros [id number] and tubes: Median sternotomy wires.Atrial appendage [...] Signed by: Jay Vera MD PH 05/02/1914:57FINAL REPORT[facility]icians
[2021-12-13 16:46] LABS: Absolute Lymphocytes (CBC) 0.7 K/uL (0.7-4.9); Hematocrit 26.4 % (39.6-49.0); Lymphocytes % 7.3 % (15.3-44.8); MPV 6.4 fL (7.6-11.3); RBC Red Blood Cell Count 4.22 M/uL (4.33-5.43)
[2021-12-13 16:50] LABS: Protime INR 1.79
--- NOTE | 2021-12-13 16:52 | RAD REPORT ---
EXAM DESCRIPTION: RAD - Chest Single View - 12/13/2021 4:28 pm CLINICAL HISTORY: history of anemia COMPARISON: Chest Single View dated 03/31/2021; Chest Single View dated 02/04/2019; Chest Pa And Lat ( 2 Views) dated 05/13/2018; Chest Single View dated 05/10/2018; Chest For Pe Angio dated 03/31/2021 FINDINGS: Lines: None. Lungs: Postoperative changes from either partial or complete right-sided pneumonectomy. The left lung is clear. The findings are similar to prior. The mediastinum is shifted to the right. Pleural: No significant pleural effusions or pneumothorax. Cardiac: The cardiac size is partially obscured. Bones: No acute fractures. Sternotomy. Other: IMPRESSION: Similar aeration of the lungs with postsurgical changes in the right chest and clear lef t lung. No new acute process compared with 03/31/2021.
[2021-12-13 17:01] LABS: Albumin 2.1 g/dL (3.4-5.0); Bilirubin Direct 0.2 mg/dL (0-0.2); Bilirubin Total 0.4 mg/dL (0.2-1.0); Potassium 3.7 mmol/L (3.5-5.1); Protein, Total 7.5 g/dL (6.4-8.2)
[2021-12-13 17:21] LABS: Troponin High Sensitivity 64.4 pg/mL (<58.9)
[2021-12-13 18:00] LABS: Blood Morphology Comment NOTED (NOT SEEN); Burr Cells 2+; Hypochromasia 2+; Ovalocytes 2+; Platelet Estimate INCR; White Blood Cell Scan OK (OK)
--- NOTE | 2021-12-13 19:07 | ER ---
Nurse's Notes [facility] Name: Denilson Quiros Age: 70 yrs Sex: Male : 1950 Arrival Date: 12/13/2021 Time: 14: Bed 5 Private MD: GWEN CHAPA Diagnosis: Anemia in other chronic diseases classified elsewhere;Weakness Presentation: 12/13 14:56 Chief complaint: Patient's son or daughter states: had low hemoglobin on Thursday , iw was sent to ER today, hx of colon cancer with mets to liver, does not want chemo treatments. Coronavirus screen: At this time, the client does not indicate any symptoms associated with coronavirus-19. Ebola Screen: Patient negative for fever greater than or equal to 101.5 degrees Fahrenheit, and additional compatible Ebola Virus Disease symptoms Patient denies exposure to infectious person. Patient denies travel to an Ebola-affected area in the 21 days before illness onset. No symptoms or risks identified at this time. Initial Sepsis Screen: Does the patient meet any 2 criteria? No. Patient's initial sepsis screen is negative. Does the patient have a suspected source of infection? No. Patient's initial sepsis screen is negative. Risk Assessment: Do you want to hurt yourself or someone else? Patient reports no desire to harm self or others. Onset of symptoms was December 13, 2021. 14:56 Method Of Arrival: Wheelchair iw 14:56 Acuity: CHUCKY 3 iw Triage Assessment: 17:30 General: Appears in no apparent distress. comfortable, Behavior is calm, cooperative, bp appropriate for age. Pain: Denies pain. EENT: No deficits noted. Neuro: No deficits noted. Cardiovascular: No deficits noted. Respiratory: No deficits noted. GI: No signs and/or symptoms were reported involving the gastrointestinal system. : No signs and/or symptoms were reported regarding the genitourinary system. Derm: No deficits noted. Musculoskeletal: No deficits noted. Historical: - Allergies: 14:57 Levaquin; iw - PMHx: 14:57 Atrial Fib; CAD; Cancer; HEART STENT; Hyperlipidemia; Lung Cancer; iw - Immunization history:: Adult Immunizations up to date. - Social history:: Smoking status: Patient denies any tobacco usage or history of. Screenin:30 Abuse screen: Denies threats or abuse. Denies injuries from another. Nutritional bp screening: No deficits noted. Tuberculosis screening: No symptoms or risk factors identified. Fall Risk None identified. Assessment: 17:30 General: SEE TRIAGE NOTE. bp 18:30 Reassessment: No changes from previously documented assessment. Patient and/or family bp updated on plan of care and expected duration. Pain level reassessed. 19:50 Reassessment: No changes from previously documented assessment. Patient and/or family ll3 updated on plan of care and expected duration. Pain level reassessed. 22:00 Reassessment: No changes from previously documented assessment. Patient and/or family ll3 updated on plan of care and expected duration. Pain level reassessed. Patient denies pain at this time. 23:00 Reassessment: No changes from previously documented assessment. Patient and/or family ll3 updated on plan of care and expected duration. Pain level reassessed. Patient denies pain at this time. 12/14 01:31 Reassessment: No changes from previously documented assessment. Patient and/or family ll3 updated on plan of care and expected duration. Pain level reassessed. Patient denies pain at this time. Vital Signs: 12/13 14:56 BP 135 / 56; Pulse 76; Resp 16; Temp 98.0; iw 18:30 BP 118 / 58; Pulse 92; Resp 16; Pulse Ox 100% ; bp 21:30 BP 134 / 70; Pulse 98; Resp 17; Pulse Ox 100% on R/A; ll3 22:30 BP 117 / 66; Pulse 96; Resp 16; Pulse Ox 100% on R/A; ll3 23:30 BP 145 / 79; Pulse 90; Resp 17; Pulse Ox 98% on R/A; ll3 12/14 00:30 BP 109 / 72; Pulse 91; Resp 16; Pulse Ox 99% on R/A; ll3 01:30 BP 120 / 73; Pulse 90; Resp 16; Temp 98.0(O); Pulse Ox 98% on R/A; ll3 ED Course: 12/13 14:27 Patient arrived in ED. am2 14:27 GWEN CHAPA is Private Physician. am2 14:31 Jairo Goodson PA is PHCP. cp 14:31 Joseph Bhatia MD is Attending Physician. cp 14:57 Triage completed. iw 16:29 XRAY Chest (1 view) In Process Unspecified. EDMS 17:25 Butch Lion, RN is Primary Nurse. bp 17:30 Arm band placed on. bp 17:30 Patient has correct armband on for positive identification. Bed in low position. Call bp light in reach. Side rails up X2. 17:30 Inserted saline lock: 20 gauge in right antecubital area, using aseptic technique. bp Blood collected. 19:06 Rush Bhatia MD is Hospitalizing Provider. cp 22:57 COVID-19 SARS RT PCR (Document "Date of Onset" if Symptomatic) Sent. 2 12/14 00:31 No provider procedures requiring assistance completed. Patient admitted, IV remains in ll3 place. Administered Medications: 12/13 10:00 Drug: Tylenol 650 mg Route: PO; 3 12/14 01:31 Follow up: Response: No adverse reaction 3 12/13 22:03 Drug: Benadryl (diphenhydrAMINE) 12.5 mg Route: IVP; Site: left antecubital; 3 12/14 01:31 Follow up: Response: No adverse reaction [facility] Medication: 12/13 17:30 VIS not applicable for this client. bp Outcome: 19:06 Decision to Hospitalize by Provider. 12/14 01:29 Admitted to Med/surg accompanied by tech, via wheelchair, room 219, with chart, Report ll3 called to JONH Menchaca Condition: stable Discharge instructions given to patient, significant other, Instructed on the need for admit, Demonstrated understanding of instructions. 01:31 Patient left the ED. 3 Signatures: Dispatcher [employer] EDMS Francie Wen, RN Jairo Morel PA PA cp Jeannette Roberto 2 Butch Lion, RN RN Digna Noble mw2 Sherrie Kaye RN RN ll3
--- NOTE | 2021-12-13 19:07 | EDPHYS ---
Physician Documentation [facility] Name: Denilson Quiros Age: 70 yrs Sex: Male : 1950 Arrival Date: 12/13/2021 Time: 14:27 Bed 5 Private MD: GWEN CHAPA ED Physician Joseph Bhatia HPI: 12/13 16:10 This 70 yrs old Male presents to ER via Wheelchair with complaints of Abnormal cp Lab Results. 16:10 low hemoglobin level. Family reports patient with recent blood work 2 days ago that cp returned low hemoglobin level. Patient referred to ED for blood transfusion. Patient with history of metastatic colon CA but declined any treatment. Historical: - Allergies: 14:57 Levaquin; iw - PMHx: 14:57 Atrial Fib; CAD; Cancer; HEART STENT; Hyperlipidemia; Lung Cancer; iw - Immunization history:: Adult Immunizations up to date. - Social history:: Smoking status: Patient denies any tobacco usage or history of. ROS: 16:15 Constitutional: Negative for body aches, chills, fever, poor PO intake. cp 16:15 Eyes: Negative for injury, pain, redness, and discharge. cp 16:15 ENT: Negative for drainage from ear(s), ear pain, sore throat, difficulty swallowing, difficulty handling secretions. 16:15 Cardiovascular: Negative for chest pain, edema, palpitations. 16:15 Respiratory: Negative for cough, shortness of breath, wheezing. 16:15 Abdomen/GI: Negative for abdominal pain, nausea, vomiting, and diarrhea. 16:15 Back: Negative for pain at rest, pain with movement. 16:15 : Negative for urinary symptoms. 16:15 Neuro: Positive for weakness, Negative for altered mental status, dizziness, headache, syncope. 16:15 All other systems are negative. Exam: 16:20 Constitutional: The patient appears in no acute distress, alert, awake, cp non-diaphoretic, non-toxic, well developed, well nourished. 16:20 Head/Face: Normocephalic, atraumatic. cp 16:20 Eyes: Periorbital structures: appear normal, Conjunctiva: normal, no exudate, no injection, Sclera: no appreciated abnormality, Lids and lashes: appear normal, bilaterally. 16:20 ENT: External ear(s): are unremarkable, Nose: is normal, Mouth: Lips: dry, Oral mucosa: moist, Posterior pharynx: Airway: no evidence of obstruction, patent. 16:20 Neck: ROM/movement: is normal, is supple, without pain, no range of motions limitations. 16:20 Chest/axilla: Inspection: normal, Palpation: is normal, no crepitus, no tenderness. 16:20 Cardiovascular: Rate: normal, Rhythm: irregular, Edema: is not appreciated, JVD: is not appreciated. 16:20 Respiratory: the patient does not display signs of respiratory distress, Respirations: normal, no retractions, labored breathing, is not present, Breath sounds: decreased breath sounds, that are severe, are heard in the right posterior upper lobe, right posterior middle lobe and right posterior lower lobe, stridor, is not appreciated, wheezing: is not appreciated. 16:20 Abdomen/GI: Inspection: abdomen appears normal, Bowel sounds: active, all quadrants, Palpation: abdomen is soft and non-tender, in all quadrants. 16:20 Neuro: Orientation: to person, place \\T\\ time. Mentation: is normal, Motor: moves all fours, strength is normal, Sensation: no obvious gross deficits. 18:09 : Rectal exam: Stool: brown, Guaiac testing: results were negative for occult blood. cp 18:19 ECG was reviewed by the Attending Physician. Vital Signs: 14:56 BP 135 / 56; Pulse 76; Resp 16; Temp 98.0; iw 18:30 BP 118 / 58; Pulse 92; Resp 16; Pulse Ox 100% ; bp 21:30 BP 134 / 70; Pulse 98; Resp 17; Pulse Ox 100% on R/A; ll3 22:30 BP 117 / 66; Pulse 96; Resp 16; Pulse Ox 100% on R/A; ll3 23:30 BP 145 / 79; Pulse 90; Resp 17; Pulse Ox 98% on R/A; ll3 12/14 00:30 BP 109 / 72; Pulse 91; Resp 16; Pulse Ox 99% on R/A; ll3 01:30 BP 120 / 73; Pulse 90; Resp 16; Temp 98.0(O); Pulse Ox 98% on R/A; ll3 MDM: 12/13 15:58 Patient medically screened. cp 17:00 Differential Diagnosis GI bleed, anemia, iron deficiency. cp 19:05 Data reviewed: vital signs, nurses notes, lab test result(s), EKG, radiologic studies, cp plain films. 19:05 Test interpretation: by ED physician or midlevel provider: ECG, plain radiologic cp studies. Physician consultation: Kedar Aliyah was contacted at 19:05, regarding admission, to the telemetry unit. patient's condition, and will see patient in ED, shortly. 12/13 16:01 Order name: Basic Metabolic Panel; Complete Time: 17:43 cp 12/13 17:44 Interpretation: Normal except: NA 132; GLUC 118; GFR 73. cp 12/13 16:01 Order name: CBC with Diff; Complete Time: 18:01 cp 12/13 17:43 Interpretation: Normal except: RBC 4.22; HGB 8.1; HCT 26.4; MCV 62.5; MCH 19.1; MCHC cp 30.6; PLT 517; RDW 18.2; MPV 6.4; VICENTA% 79.3; LYM% 7.3; MN% 12.4. 12/13 16:01 Order name: LFT's; Complete Time: 17:43 cp 12/13 17:44 Interpretation: Normal except: AST 14; ALT 11; ALK 119; ALB 2.1; GLOB 5.4; A/G 0.4. 12/13 16:01 Order name: Magnesium; Complete Time: 17:43 cp 12/13 16:01 Order name: NT PRO-BNP; Complete Time: 17:43 cp 12/13 18:03 Interpretation: Abnormal: NT PRO-BNP 2258. 12/13 16:01 Order name: PT-INR; Complete Time: 17:43 cp 12/13 16:01 Order name: Troponin HS; Complete Time: 17:43 cp 12/13 17:44 Interpretation: Abnormal: Troponin HS 64.4. 12/13 16:01 Order name: XRAY Chest (1 view); Complete Time: 17:43 cp 12/13 16:01 Order name: Ptt, Activated; Complete Time: 17:43 12/13 16:01 Order name: Type And Screen 12/13 16:49 Order name: CBC Smear Scan; Complete Time: 18:01 EDCA 12/13 19:04 Order name: Packed RBC Leukored EDCA 12/13 22:18 Order name: COVID-19 SARS RT PCR (Document "Date of Onset" if Symptomatic) 2 12/14 00:06 Order name: SARS-COV-2 RT PCR; Complete Time: 21:33 EDMS 12/13 16:01 Order name: EKG; Complete Time: 16:02 12/13 16:01 Order name: Cardiac monitoring; Complete Time: 17:26 12/13 16:01 Order name: EKG - Nurse/Tech; Complete Time: 17:31 cp 12/13 16:01 Order name: IV Saline Lock; Complete Time: 17:31 cp 12/13 16:01 Order name: Labs collected and sent; Complete Time: 17:31 cp 12/13 16:01 Order name: O2 Per Protocol; Complete Time: 17:30 cp 12/13 16:01 Order name: O2 Sat Monitoring; Complete Time: 17:26 cp 12/13 19:37 Order name: Extremity Venous Uni Ltd US la1 12/13 20:17 Order name: Transfer - Initiate; Complete Time: 01:29 12/13 21:03 Order name: US; Complete Time: 21:51 EDMS EC:19 Rate is 87 beats/min. Rhythm is irregular. WI interval is prolonged at 224 msec. QRS cp interval is prolonged at 116 msec. QT interval is normal. Interpreted by me. Reviewed by me. Administered Medications: 10:00 Drug: Tylenol 650 mg Route: PO; 3 12/14 01:31 Follow up: Response: No adverse reaction 3 12/13 22:03 Drug: Benadryl (diphenhydrAMINE) 12.5 mg Route: IVP; Site: left antecubital; 3 12/14 01:31 Follow up: Response: No adverse reaction 3 Disposition Summary: 12/13/21 19:06 Hospitalization Ordered Hospitalization Status: Observation cp Provider: Rush Bhatia cp Location: Telemetry/MedSurg (observation) cp Condition: Fair cp Problem: new cp Symptoms: are unchanged cp Bed/Room Type: Standard cp Room Assignment: 219(12/14/21 00:16) cg Diagnosis - Anemia in other chronic diseases classified elsewhere cp - Weakness cp Forms: - Medication Reconciliation Form cp - SBAR form cp Addendum: 12/15/2021 23:56 Co-signature as Attending Physician, Joseph Bhatia MD. r n Signatures: Dispatcher [employer] Francie Massey, RN JONH iw Joseph Bhatia MD MD rn Kedar Ly, ACCOUNTING SOFTWARE SPECIALIST-C ACCOUNTING SOFTWARE SPECIALIST-Cla1 Jairo Goodson PA PA cp Cathy Quiros, RN RN cg Butch Lion RN RN bp Loubet, Lynsea, RN RN ll3 Corrections: (The following items were deleted from the chart) 12/14 00:16 12/13 19:06 cp cg 12/14 21:29 12/13 16:10 low hemoglobin level. Family reports patient with recent blood work 2 days cp ago that returned low hemoglobin level. Patient referred to ED for blood transfusion. Patient with history of pancreatic CA but declined any treatment. cp
--- NOTE | 2021-12-13 19:57 | P.HP ---
Certification for Inpatient Patient admitted to: Observation With expected LOS: <2 Midnights Patient will require the following post-hospital care: None Practitioner: I am a practitioner with admitting privileges, knowledge of patient current condition, hospital course, and medical plan of care. Services: Services provided to patient in accordance with Admission requirements found in Title 42 Section 412.3 of the Code of Federal Regulations Patient History Date of Service: 12/13/21 Reason for admission: Anemia, elevated troponin History of Present Illness: 70-year-old male with history of atrial fibrillation on chronic anticoagulation therapy, CAD status post CABG, hyperlipidemia, hypertension, BPH and lung cancer with metastasis presents the emergency department for weakness, abnormal labs outpatient. Patient had routine labs done by his PCP which demonstrated a hemoglobin of 7.9 he was referred to the emergency department for further eval uation in the ER he had negative Hemoccult test for presence of occult blood his hemoglobin was 8.1 although patient was significant symptomatic also his troponin was mildly elevated . ED provider wishes to admit under observation for elevated troponin, anemia and weakness. Allergies levofloxacin [From Levaquin] Allergy (Verified 02/04/19 06:44) Itching/Hives/Rash Home Medications: Aspirin 81 mg PO DAILY #30 tab.chew 05/12/18 Atorvastatin Calcium [Lipitor] 80 mg PO BEDTIME #30 tab 05/12/18 Doxycycline Hyclate 100 mg PO BID #20 tablet 02/05/19 Budesonide/Formoterol Fumarate [Symbicort 80-4.5 Mcg Inhaler] 2 puff IH DAILY 03/31/21 Lisinopril [Zestril] 10 mg PO DAILY 03/31/21 Tamsulosin [Flomax*] 1 tab PO DAILY 03/31/21 Aspirin [Aspirin EC 81 MG] 81 mg PO DAILY 30 Days #30 tablet. 04/02/21 - Past Medical/Surgical History Diabetic: No -: Lip CA -: hyperlipidemia -: Afib -: Lung Cancer -: CAD -: Lip surg -: Right Lobectomy -: Heart stents -: Bypass Psychosocial/ Personal History: Patient lives at home with his family - Family History Brother -: Cancer - Social History Smoking Status: Never smoker Alcohol use: No CD- Drugs: No Caffeine use: Yes Place of Residence: Home Review of Systems 10-point ROS is otherwise unremarkable General: Weakness, Malaise Musculoskeletal: Other (Left upper extremity swelling) Physical Examination - Physical Exam General: Alert, In no apparent distress, Oriented x3 HEENT: Atraumatic, PERRLA, Other (Mucous membranes pale, dry), EOMI, Sclerae nonicteric Neck: Supple, 2+ carotid pulse no bruit, No LAD, Without JVD or thyroid abnormality Respiratory: Clear to auscultation bilaterally, Normal air movement Cardiovascular: Normal S1 S2, Irregular heart rate/rhythm (A. fib rate controlled) Capillary refill: <2 Seconds Gastrointestinal: Normal bowel sounds, No tenderness Musculoskeletal: No tenderness Integumentary: No rashes Neurological: Normal speech, Normal strength at 5/5 x4 extr, Normal tone, Normal affect - Studies Laboratory Data (last 24 hrs) 12/13/21 16:29: PT 19.9 H, INR 1.79, APTT 40.6 H 12/13/21 16:29: WBC 9.4, Hgb 8.1 L, Hct 26.4 L, Plt Count 517 H 12/13/21 16:29: Sodium 132 L, Potassium 3.7, BUN 12, Creatinine 1.09, Glucose 1 18 H, Magnesium 2.0, Total Bilirubin 0.4, AST 14 L, ALT 11 L, Alkaline Phosphatase 119 H Assessment and Plan - Plan Assessment: Symptomatic anemia of chronic disease/malignancy Atrial fibrillation on chronic anticoagulation therapy Elevated troponinhistory CAD/CABG Hypertension Hyperlipidemia BPH Lung cancermets to liver Left upper extremity swelling Plan: Symptomatic anemia of chronic disease/malignancy: Patient transfused 1 unit packed red blood cells in the ER recheck CBC in the morning. Denies any signs or symptoms of GI bleeding Hemoccult negative. Atrial fibrillation on chronic anticoagulation therapy: Continue Xarelto, medications for rate control monitor on telemetry. Elevated troponinhistory CAD/CABG: Continue medications, trend troponin level if significant elevation will consult cardiology. Monitor telemetry, patient chest pain-free. Hypertension: Continue home medications Hyperlipidemia:Continue home medications BPH:Continue home medications Lung cancermets to liver: No acute changes patient declined chemotherapy. Left upper extremity swelling: Ultrasound pending to evaluate for possible DVT. DVT PPX: Continue Xarelto Code status: Full Discharge Plan: Home Plan to discharge in: 24 Hours - Advance Directives Does patient have a Living Will: No Does patient have a Durable POA for Healthcare: No - Code Status/Comfort Care Code Status Assessed: Yes (Full code) Critical Care: No Time Spent Managing Pts Care (In Minutes): 55
--- NOTE | 2021-12-13 21:02 | RAD REPORT ---
EXAM DESCRIPTION: US - UPPER EXTREMITY VENOUS UNILATE - 12/13/2021 8:52 pm CLINICAL HISTORY: SWELLING COMPARISON: Extremity Venous Uni Ltd dated 05/05/2019 FINDINGS: Color Doppler, grayscale, and spectral analysis was performed. The left internal jugular vein, subclavian vein, axillary vein, basilic vein, brachial vein, cephalic vein, ulnar vein, and radial vein were all compressible and demonstrated normal flow. IMPRESSION: No evidence of venous thrombosis in the left upper extremity.
[2021-12-13] MEDS ORDERED: NA CHLORIDE 0.9% 50 ML ONE (21:44)
[2021-12-13] MEDS ORDERED: ACETAMINOPHEN 325 MG TABLET ONE (22:01)
[2021-12-13] MEDS ORDERED: DIPHENHYDRAMINE 50 MG/ML VIAL ONE (22:01)
[2021-12-14] MEDS ORDERED: ONDANSETRON 4 MG/2 ML VIAL IV PRN (01:05)
[2021-12-14 02:22] VITALS: BMI 21.7
[2021-12-14 08:02] LABS: Absolute Lymphocytes (CBC) 0.5 K/uL (0.7-4.9); Hematocrit 27.8 % (39.6-49.0); Lymphocytes % 6.5 % (15.3-44.8); MPV 6.4 fL (7.6-11.3); RBC Red Blood Cell Count 4.17 M/uL (4.33-5.43)
[2021-12-14 08:11] LABS: RBC Red Blood Cell Count 4.19 M/uL (4.33-5.43)
[2021-12-14 08:49] LABS: AST/SGOT 14 U/L (15-37); Albumin 1.7 g/dL (3.4-5.0); Alkaline Phosphatase 99 U/L (45-117); BUN Blood Urea Nitrogen 12 mg/dL (7-18); Bicarbonate 25 mmol/L (21-32); Bilirubin Total 1.5 mg/dL (0.2-1.0); Glomerular Filtration Rate 81 ml/min (=/>90); Glucose Level 90 mg/dL (74-106); HDL Cholesterol 45 mg/dL (40-60); LDL Cholesterol, Calculated 52 mg/dL (<130); Potassium 3.6 mmol/L (3.5-5.1); Protein, Total 6.2 g/dL (6.4-8.2); Sodium Level 135 mmol/L (136-145)
[2021-12-14 08:51] LABS: Urine Appearance Clear (Clear); Urine Bilirubin Negative (Negative); Urine Blood Negative (Negative); Urine Color Yellow (Yellow); Urine Glucose Negative (Negative); Urine Protein Negative (Negative); Urine Specific Gravity 1.015 (1.005-1.030); Urine pH 6.5 (5.0-7.0)
[2021-12-14 08:54] LABS: Urine Microscopic Reflex NO UMIC
[2021-12-14 08:56] LABS: ALT/SGPT < 10 U/L (12-78)
[2021-12-14] MEDS ORDERED: PNEUMOCOCCAL VACCINE 0.5 ML IMVAC ONE (09:00)
[2021-12-14 09:13] LABS: Ferritin 41.6 ng/mL (26-388)
--- NOTE | 2021-12-14 12:29 | CON ---
Date of Consultation: 12/14/2021 Reason For Consultation: History of atrial fibrillation on anticoagulant and anemia requiring transf usion, borderline troponin elevation. History Of Present Illness: A 70-year-old male, history of chronic atrial fibrillation on Xarelto, c oronary artery disease, CABG in the past, dyslipidemia, hypertension, lung cancer, presented to the mergency room due to anemia, hemoglobin being low, feeling dizzy and weak. He was admitted and given 1 unit of packed red blood cells. Denies having any active bleeding. Denies having any chest pain. Past Medical History: As outlined above in the HPI. Medications: Refer to reconciliation sheet for detailed list. Allergies: LEVAQUIN. Family History: No premature coronary artery disease or cancer. Social History: Does not smoke or drink. Does not use any drugs. Review of Systems: All systems reviewed and were negative except those mentioned in the HPI. Physical Examination: Vital Signs: Reviewed. Head and Neck: Pupils are equal, reactive to light. Intact eye movements. No JVD. No cervical lym phadenopathy. Neck: Supple. Thyroid is not enlarged. Lungs: Clear to auscultation bilaterally. No rhonchi, rales, or crackles. No accessory muscle use. Heart: Irregularly irregular. No extra sounds. Abdomen: Soft, nontender. Bowel sounds positive. No organomegaly. No masses or hernia. No rigidi ty or rebound. Extremities: No edema, clubbing, cyanosis. Intact pulses. Skin: No rashes. Neurologic: Alert, awake, oriented x3. No focal deficits appreciated. Investigations: Hemoglobin is 8.8 today, and his INR is 1.79. Troponin is borderline at 74, and the creatinine is 0.99. Assessment And Recommendation: 1.Atrial fibrillation, on Xarelto. His CHADS-VASc score is 4. He is at high risk of stroke and how ever is having chronic anemia and probably chronic blood loss. I recommend left atrial appendage rajesh sure with using Watchman device, and we will plan for it as an outpatient. Discussed this with the p fabiano and the family and they agreed to that. We will schedule it within a week or 2 post discharge to allow him to come off the Xarelto as he is requiring blood transfusion for this chronic anemia. 2.Elevated troponin borderline. There is no chest pain. This is likely demand and recommend a nucl ear stress test and echocardiogram which can be done as an outpatient. We will go ahead and arrange for it post discharge. Thank you for the consult. TRAN Voice ID: [id number] Report ID: [id number]
[2021-12-14 14:15] VITALS: BP 127/58; TEMP 98.9
[2021-12-14 20:09] VITALS: O2SAT 99
--- NOTE | 2021-12-15 20:49 | P.DS ---
Admission Date: 12/13/21 Discharge Date: 12/14/21 Disposition: ROUTINE DISCHARGE Discharge Condition: GOOD Reason for Admission: Anemia, elevated troponin Consultations: Cardiology - Dr. Momin Brief History of Present Illness: 70-year-old male with history of atrial fibrillation on chronic anticoagulation therapy, CAD status post CABG, hyperlipidemia, hypertension, BPH and lung cancer with metastasis presents the emergency department for weakness, abnormal labs outpatient. Patient had routine labs done by his PCP which demonstrated a hemoglobin of 7.9 he was referred to the emergency department for further evaluation in the ER he had negative Hemoccult test for presence of occult blood his hemoglobin was 8.1 although patient was significant symptomatic also his troponin was mildly elevated . ED provider wishes to admit under observation for elevated troponin, anemia and weakness. Hospital Course: Problem List Symptomatic anemia of chronic disease/malignancy Atrial fibrillation on chronic anticoagulation therapy Elevated troponinhistory CAD/CABG, secondary to demand ischemia (CAD with anemia) Hypertension Hyperlipidemia BPH Lung cancermets to liver Left upper extremity swelling Patient received 1unit of PRBCs with improvement of his hemoglobin and symptoms. Hemoccult was negative in his stool, no evidence of bleeding. Family reported history of iron deficiency He reported feeling better and ready for discharge home. His vital signs were stable, he denied chest pain or shortness of breath. He was noted to have mild elevation in his troponin which remained steady in 60- 70s. Cardiology was consulted. Dr. Momin recommended outpatient follow up, for further evaluation for Watchman's procedure. Iron studies were performed after receiving the blood transfusion and were high - high normal - which is affected by the blood transfusion. Family state patient had labs done this last week that showed low iron levels. Patient to follow up with PCP regarding iron deficiency anemia. Anemia seems multifactorial - iron deficiency and of chronic disease. Vital Signs/Physical Exam: Temp Pulse Resp BP Pulse Ox 98.9 F 69 18 127/58 L 99 12/14/21 12:00 12/14/21 12:00 12/14/21 12:00 12/14/21 12:00 12/14/21 12:00 General: Alert, In no apparent distress, Oriented x3 HEENT: Sclerae nonicteric Respiratory: Clear to auscultation bilaterally, Normal air movement Cardiovascular: No edema, Regular rate/rhythm Gastrointestinal: Soft and benign, Non-distended, No tenderness Musculoskeletal: No contractures Integumentary: No rashes, No significant lesion Neurological: Normal speech, Normal affect Laboratory Data at Discharge: WBC 8.4 K/uL (4.3-10.9) 12/14/21 07:18 Hgb 8.8 g/dL (13.6-17.9) L 12/14/21 07:18 Hct 27.8 % (39.6-49.0) L 12/14/21 07:18 Plt Count 397 K/uL (152-406) D 12/14/21 07:18 PT 19.9 SECONDS (9.5-12.5) H 12/13/21 16:29 INR 1.79 12/13/21 16:29 APTT 40.6 SECONDS (24.3-36.9) H 12/13/21 16:29 Sodium 135 mmol/L (136-145) L 12/14/21 07:00 Potassium 3.6 mmol/L (3.5-5.1) 12/14/21 07:00 BUN 12 mg/dL (7-18) 12/14/21 07:00 Creatinine 0.99 mg/dL (0.55-1.3) 12/14/21 07:00 Glucose 90 mg/dL (74-106) 12/14/21 07:00 Magnesium 2.0 mg/dL (1.8-2.4) 12/13/21 16:29 Total Bilirubin 1.5 mg/dL (0.2-1.0) H 12/14/21 07:00 AST 14 U/L (15-37) L 12/14/21 07:00 ALT < 10 U/L (12-78) L 12/14/21 07:00 Alkaline Phosphatase 99 U/L (45-117) 12/14/21 07:00 Triglycerides 73 mg/dL (<150) 12/14/21 07:00 Cholesterol 112 mg/dL (<200) 12/14/21 07:00 HDL Cholesterol 45 mg/dL (40-60) 12/14/21 07:00 Cholesterol/HDL Ratio 2.49 12/14/21 07:00 Home Medications: Aspirin 81 mg PO DAILY #30 tab.chew 05/12/18 Atorvastatin Calcium [Lipitor] 80 mg PO BEDTIME #30 tab 05/12/18 Doxycycline Hyclate 100 mg PO BID #20 tablet 02/05/19 Budesonide/Formoterol Fumarate [Symbicort 80-4.5 Mcg Inhaler] 2 puff IH DAILY 03/31/21 Lisinopril [Zestril] 10 mg PO DAILY 03/31/21 Tamsulosin [Flomax*] 1 tab PO DAILY 03/31/21 Aspirin [Aspirin EC 81 MG] 81 mg PO DAILY 30 Days #30 tablet. 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
--- NOTE | 2021-12-17 12:25 | EKG ---
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 RESULTS: Intervals: Rate: 87 MI: 224 QRSD: 116 QT: 412 QTc: 495 Dewitt: P: MI: 224 QRS: -48 T: 85 INTERPRETIVE STATEMENTS: Sinus rhythm with 1st degree AV block with premature atrial complexes Left axis deviation Nonspecific T wave abnormality Prolonged QT Abnormal ECG Compared to ECG 03/31/2021 08:44:26 Atrial premature complex(es) now present First degree AV block now present T-wave abnormality now present Prolonged QT interval now present Atrial fibrillation no longer present Left ventricular hypertrophy no longer present ST (T wave) deviation no longer present Electronically Signed On 12-17-21 12:17:44 CDT by Rishabh Webster
== END 2021-12-14 15:25 | disposition home or self-care (01) ==
LOC: ER 14:21 → ERHOLD 20:03 → 2ND 12-14 00:44
PROVIDERS: ADMIT Hospitalist; ATTEND Hospitalist
PROC: 30233N1 Transfusion of Nonautologous Red Blood Cells into Peripheral Vein, Percutaneous Approach (ICD-10-PCS; principal; 2021-12-13)
DX: D50.9 Iron deficiency anemia, unspecified (principal); I48.91 Unspecified atrial fibrillation; I25.10 Atherosclerotic heart disease of native coronary artery without angina pectoris; D63.8 Anemia in other chronic diseases classified elsewhere; R77.8 Other specified abnormalities of plasma proteins; I10 Essential (primary) hypertension; C34.90 Malignant neoplasm of unspecified part of unspecified bronchus or lung; C78.7 Secondary malignant neoplasm of liver and intrahepatic bile duct; E78.5 Hyperlipidemia, unspecified; N40.0 Benign prostatic hyperplasia without lower urinary tract symptoms; M79.89 Other specified soft tissue disorders; Z23 Encounter for immunization; Z20.822 Contact with and (suspected) exposure to COVID-19; Z88.3 Allergy status to other anti-infective agents; Z95.1 Presence of aortocoronary bypass graft; Z95.5 Presence of coronary angioplasty implant and graft; Z79.01 Long term (current) use of anticoagulants; Z79.82 Long term (current) use of aspirin; Z79.899 Other long term (current) drug therapy; Z85.819 Personal history of malignant neoplasm of unspecified site of lip, oral cavity, and pharynx; Z90.2 Acquired absence of lung [part of]; Z80.9 Family history of malignant neoplasm, unspecified
CPT/HCPCS: 93005; 85025 ×2; 80048; 36415; 86900; 83735; 86850; 85610; 85044; 80061; 86901; 80076; 85730; 81003; 84484 ×3; 82728; 83540; 80053; 83880; 84466; 71045; 93971; 90471; 90732; 97116; 97161; 96374; 99285; 36430; U0003; J1200; G0378; P9016

== ENCOUNTER 2022-01-20 01:48 | Inpatient (IN) | payer OTHER ==
[2022-01-20 02:43] LABS: Arterial Blood Carboxyhemoglob 0.9 % (0-1.5); Blood O2 Saturation 98.8 % (92-98.5)
[2022-01-20] MEDS ORDERED: METHYLPREDNISOLONE 125 MG INJ ONE (03:02)
[2022-01-20] MEDS ORDERED: IPRATROPIUM BROM 0.5MG/2.5ML ONE (03:03)
[2022-01-20] MEDS ORDERED: FAMOTIDINE 20 MG/2 ML VIAL IV ONE (03:03)
[2022-01-20] MEDS ORDERED: DIGOXIN 0.25 MG/ML AMP ONE (03:03)
[2022-01-20] MEDS ORDERED: LEVALBUTEROL 1.25 MG/3 ML NEB ONE (03:03)
[2022-01-20 03:24] LABS: Protime INR 2.53
[2022-01-20 03:25] LABS: Absolute Lymphocytes (CBC) 1.2 K/uL (0.7-4.9); Hematocrit 29.1 % (39.6-49.0); Lymphocytes % 8.2 % (15.3-44.8); MPV 7.2 fL (7.6-11.3); RBC Red Blood Cell Count 4.22 M/uL (4.33-5.43)
[2022-01-20] MEDS ORDERED: METOPROLOL TAR 50 MG TAB ONE (03:35)
[2022-01-20] MEDS ORDERED: METOPROLOL TARTRATE 5 MG/5 ML INJ IV ONE (03:36)
[2022-01-20 03:40] LABS: AST/SGOT 14 U/L (15-37); Albumin 1.9 g/dL (3.4-5.0); Alkaline Phosphatase 138 U/L (45-117); BUN Blood Urea Nitrogen 14 mg/dL (7-18); Bicarbonate 25 mmol/L (21-32); Bilirubin Direct 0.2 mg/dL (0-0.2); Bilirubin Total 0.4 mg/dL (0.2-1.0); Glomerular Filtration Rate 83 ml/min (=/>90); Glucose Level 134 mg/dL (74-106); NT PRO-BNP 3312 pg/mL (<125); Potassium 4.3 mmol/L (3.5-5.1); Protein, Total 7.3 g/dL (6.4-8.2); Sodium Level 131 mmol/L (136-145)
[2022-01-20 03:42] LABS: ALT/SGPT < 10 U/L (12-78)
[2022-01-20 03:43] LABS: Troponin High Sensitivity 146.1 pg/mL (<58.9)
[2022-01-20 04:42] LABS: Anisocytosis 3+; Blood Morphology Comment NOTED (NOT SEEN); Hypochromasia 1+; Platelet Estimate INCR; White Blood Cell Scan OK (OK)
--- NOTE | 2022-01-20 04:59 | ER ---
Nurse's Notes 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 Coronavirus screen: Vaccine status: Patient reports receiving the 2nd dose of the covid vaccine. Ebola Screen: No symptoms or risks identified at this time. Initial Sepsis Screen: Does the patient meet any 2 criteria? No. Patient's initial sepsis screen is negative. Does the patient have a suspected source of infection? No. Patient's initial sepsis screen is negative. Risk Assessment: Do you want to hurt yourself or someone else? Patient reports no desire to harm self or others. Onset of symptoms was January 20, 2022 at 00:00. 01:58 Acuity: CHUCKY 3 ke1 01:58 Method Of Arrival: Ambulatory 1 Triage Assessment: 01:58 General: Appears uncomfortable, Behavior is appropriate for age. Pain: Complains of ke1 pain in headache Pain does not radiate. Cardiovascular: Rhythm is atrial fibrillation. Respiratory: Respiratory effort is unlabored, Respiratory pattern is regular, symmetrical, Breath sounds with crackles bilaterally. Parent/caregiver reports the patient having shortness of breath at rest on exertion cough that is non-productive. Historical: - Allergies: 01:55 Levaquin; ke1 - Home Meds: 03:09 Xarelto oral [Active]; Keppra 500 mg Oral tab [Active]; tamsulosin 0.4 mg oral cap 1 vc1 cap once daily [Active]; Lisinopril Oral [Active]; atorvastatin oral [Active]; - PMHx: 01:55 Atrial Fib; CAD; Cancer; HEART STENT; Hyperlipidemia; Lung Cancer; ke1 - Immunization history:: Adult Immunizations up to date. - Social history:: Smoking status: Patient reports the use of cigarette tobacco products, Patient/guardian denies using tobacco, the patient reports quitting approximately 14 years ago. - Family history:: not pertinent. Screenin:11 Abuse screen: Denies threats or abuse. Nutritional screening: Had unintentional weight ke1 loss of 10 pounds or more. Tuberculosis screening: No symptoms or risk factors identified. Fall Risk No fall in past 12 months (0 pts). No secondary diagnosis (0 pts). No IV (0 pts). Ambulatory Aid- Crutches/Cane/Walker (15 pts). Gait- Weak (10 pts.). Mental Status- Oriented to own ability (0 pts). Total Hernandez Fall Scale indicates Low Risk Score (25-44 pts). Fall prevention measures have been instituted. Side Rails Up X 2 Frequent Obs/Assesments occuring. Assessment: 03:10 Respiratory: Patient placed on BiPAP: Inspiratory Pressure: 16 Expiratory (EPAP) ke1 Pressure: 6 FiO2%: 40 Respiratory Rate: 16. 03:54 Reassessment: Patient appears in no apparent distress at this time. Patient is alert, ke1 oriented x 3, equal unlabored respirations, skin warm/dry/pink. 04:15 Reassessment: Patient states feeling better. Patient states symptoms have improved. ke1 Vital Signs: 01:58 BP 132 / 47; Pulse 85; Resp 30; Temp 98.7; Pulse Ox 100% on R/A; Weight 67.59 kg; ke1 Height 5 ft. 8 in. (172.72 cm); Pain 9/10; 03:00 BP 104 / 59; Pulse 142; Resp 20; Pulse Ox 60% on 4 lpm NC; ke1 03:05 Pulse Ox 96% on BiPAP; ke1 03:30 BP 104 / 59; Pulse 136; Resp 16; Pulse Ox 100% ; ke1 03:41 BP 155 / 76; Pulse 100; Resp 17; Pulse Ox 100% on BiPAP; ke1 04:28 BP 143 / 55; Pulse 56; Resp 50; Pulse Ox 100% ; ke1 04:31 Pulse 56; ke1 04:31 Pulse 56; ke1 04:52 BP 134 / 62; Pulse 41; Pulse Ox 100% on BiPAP; ke1 05:58 BP 135 / 46; Pulse 39; Resp 17; Pulse Ox 100% ; ke1 01:58 Body Mass Index 22.66 (67.59 kg, 172.72 cm) ke1 ED Course: 01:55 Patient arrived in ED. as6 01:55 Allegra Plasencia RN is Primary Nurse. ke1 02:04 Jairo Leger MD is Attending Physician. [facility] 02:08 Triage completed. ke1 02:13 Bed in low position. Call light in reach. Side rails up X 1. Side rails up X2. Adult w/ ke1 patient. 02:13 Arm band placed on right wrist. ke1 02:30 Inserted saline lock: 18 gauge EJ, using aseptic technique. By MD leger. ke1 02:56 XRAY Chest (1 view) In Process Unspecified. EDMS 03:37 Thorax Wo Con In Process Unspecified. EDMS 04:15 Allegra Plasencia RN is Primary Nurse. ke1 04:55 Avtar Melton MD is Hospitalizing Provider. osmany Administered Medications: 03:05 Drug: SOLU-Medrol (methylPrednisoLONE) 125 mg Route: IVP; Site: left jugular; ke1 03:30 Follow up: Response: Marked relief of symptoms ke1 03:05 Drug: Pepcid (famotidine) 20 mg Route: IVP; Site: left jugular; ke1 03:30 Follow up: Response: Marked relief of symptoms ke1 04:31 Follow up: Response: No adverse reaction; Marked relief of symptoms ke1 03:05 Drug: Digoxin 0.5 mg Route: IVP; Site: left jugular; ke1 04:31 Follow up: Pulse 56 bpm; Response: Marked relief of symptoms ke1 03:40 Drug: Lopressor (metoprolol) 5 mg {Note: 155/76 100.} Route: IVP; Site: left jugular; ke1 04:31 Follow up: Pulse 56 bpm; Response: Marked relief of symptoms ke1 03:40 Drug: Lopressor (metoprolol TARTRATE) 50 mg Route: PO; ke1 04:30 Follow up: Response: Marked relief of symptoms ke1 03:42 Drug: Xopenex (levalbuterol) 2.5 mg Route: Inhalation; ke1 03:42 Drug: AtroVENT (ipratropium) Aerosol 0.5 mg Route: Inhalation; ke1 05:14 Drug: Zosyn (piperacillin-tazobactam) 3.375 grams Route: IVPB; Infused Over: 60 mins; ke1 Site: left jugular; Outcome: 04:58 Decision to Hospitalize by Provider. osmany 10:08 Admitted to ICU accompanied by nurse, via stretcher, room 7, with oxygen, on monitor, 6 with chart. 10:32 Patient left the ED. 10:32 Condition: unchanged [facility] Signatures: Dispatcher [employer] EDMS Jairo Leger MD MD cha Williams, Irene RN RN Koffi Mojica, RN RN as6 Amy Doan RN RN 6 Katerin Becerra RN RN vc1 Allegra Plasencia RN RN ke1 Corrections: (The following items were deleted from the chart) 05:52 03:00 BP 104 / 59; Pulse 115bpm; Resp 20bpm; Pulse Ox 60% 4 lpm Nasal Cannula; ke1 ke1
--- NOTE | 2022-01-20 04:59 | EDPHYS ---
Physician Documentation [facility] Name: Denilson Quiros Age: 71 yrs Sex: Male : 1950 Arrival Date: 01/20/2022 Time: 01:55 Bed 16 Private MD: SULTANA Physician Jairo Leger HPI: 01/20 02:30 This 71 yrs old Male presents to ER via Ambulatory with complaints of DYSPNEA, osmany HYPOXIA. 02:30 The patient has shortness of breath at rest, with light activity. Onset: The osmany symptoms/episode began/occurred 2 day(s) ago. Duration: The symptoms are continuous, and are steadily getting worse. The patient's shortness of breath is aggravated by coughing. Associated signs and symptoms: Pertinent positives: productive cough. Severity of symptoms: At their worst the symptoms were mild in the emergency department the symptoms are unchanged. The patient or guardian reports cough, described as moderate, difficulty breathing, flu symptoms, arthralgias. Severity of symptoms: At their worst the symptoms were moderate, in the emergency department the symptoms are unchanged. Modifying factors: The symptoms are alleviated by nothing, the symptoms are aggravated by exertion, talking. Historical: - Allergies: 01:55 Levaquin; ke1 - Home Meds: 03:09 Xarelto oral [Active]; Keppra 500 mg Oral tab [Active]; tamsulosin 0.4 mg oral cap 1 vc1 cap once daily [Active]; Lisinopril Oral [Active]; atorvastatin oral [Active]; - PMHx: 01:55 Atrial Fib; CAD; Cancer; HEART STENT; Hyperlipidemia; Lung Cancer; ke1 - Immunization history:: Adult Immunizations up to date. - Social history:: Smoking status: Patient reports the use of cigarette tobacco products, Patient/guardian denies using tobacco, the patient reports quitting approximately 14 years ago. - Family history:: not pertinent. ROS: 02:30 Constitutional: Negative for fever, chills, and weight loss, Eyes: Negative for injury, osmany pain, redness, and discharge, ENT: Negative for injury, pain, and discharge, Neck: Negative for injury, pain, and swelling, Cardiovascular: Negative for chest pain, palpitations, and edema, Abdomen/GI: Negative for abdominal pain, nausea, vomiting, diarrhea, and constipation, Back: Negative for injury and pain, : Negative for injury, bleeding, discharge, and swelling, MS/Extremity: Negative for injury and deformity, Skin: Negative for injury, rash, and discoloration, Neuro: Negative for headache, weakness, numbness, tingling, and seizure. 02:30 Respiratory: Positive for cough, shortness of breath, wheezing, expiratory. Exam: 02:30 Constitutional: This is a well developed, well nourished patient who is awake, alert, osmany and in no acute distress. Head/Face: Normocephalic, atraumatic. Eyes: Pupils equal round and reactive to light, extra-ocular motions intact. Lids and lashes normal. Conjunctiva and sclera are non-icteric and not injected. Cornea within normal limits. Periorbital areas with no swelling, redness, or edema. ENT: Nares patent. No nasal discharge, no septal abnormalities noted. Tympanic membranes are normal and external auditory canals are clear. Oropharynx with no redness, swelling, or masses, exudates, or evidence of obstruction, uvula midline. Mucous membranes moist. Neck: Trachea midline, no thyromegaly or masses palpated, and no cervical lymphadenopathy. Supple, full range of motion without nuchal rigidity, or vertebral point tenderness. No Meningismus. Chest/axilla: Normal chest wall appearance and motion. Nontender with no deformity. No lesions are appreciated. Abdomen/GI: Soft, non-tender, with normal bowel sounds. No distension or tympany. No guarding or rebound. No evidence of tenderness throughout. Back: No spinal tenderness. No costovertebral tenderness. Full range of motion. Male : Normal genitalia with no discharge or lesions. MS/ Extremity: Pulses equal, no cyanosis. Neurovascular intact. Full, normal range of motion. Neuro: Awake and alert, GCS 15, oriented to person, place, time, and situation. Cranial nerves II-XII grossly intact. Motor strength 5/5 in all extremities. Sensory grossly intact. Cerebellar exam normal. Normal gait. Psych: Awake, alert, with orientation to person, place and time. Behavior, mood, and affect are within normal limits. 02:30 Cardiovascular: Rate: tachycardic, Rhythm: regular, Pulses: Pulses are 4+ in bilateral radial, brachial, femoral, popliteal, posterior tibial and and dorsalis pedis arteries.. Heart sounds: normal, murmur, rub, gallop, S1, S2, S3, S4, Edema: is not appreciated, JVD: is not appreciated. Vital Signs: 01:58 BP 132 / 47; Pulse 85; Resp 30; Temp 98.7; Pulse Ox 100% on R/A; Weight 67.59 kg; ke1 Height 5 ft. 8 in. (172.72 cm); Pain 9/10; 03:00 BP 104 / 59; Pulse 142; Resp 20; Pulse Ox 60% on 4 lpm NC; ke1 03:05 Pulse Ox 96% on BiPAP; ke1 03:30 BP 104 / 59; Pulse 136; Resp 16; Pulse Ox 100% ; ke1 03:41 BP 155 / 76; Pulse 100; Resp 17; Pulse Ox 100% on BiPAP; ke1 04:28 BP 143 / 55; Pulse 56; Resp 50; Pulse Ox 100% ; ke1 04:31 Pulse 56; ke1 04:31 Pulse 56; ke1 04:52 BP 134 / 62; Pulse 41; Pulse Ox 100% on BiPAP; ke1 05:58 BP 135 / 46; Pulse 39; Resp 17; Pulse Ox 100% ; ke1 01:58 Body Mass Index 22.66 (67.59 kg, 172.72 cm) ke1 Procedures: 02:48 Peripheral line: by aseptic technique a peripheral line was placed in the left external osmany jugular vein. MDM: 02:04 Patient medically screened. osmany 02:34 Differential diagnosis: Bronchitis Chronic Obstructive Pulmonary Disease pneumonia, osmany pulmonary edema, reactive airway disease, Unstable Angina. Antibiotic administration: ZOSYN. The patient's Wells Deep Vein Thrombosis Score was calculated as follows: Total Score: 0-2 Pts- Low Risk. Differential Diagnosis: Obstructed Airway Bronchitis Influenza Sinusitis Pharyngitis Allergic Rhinitis Asthma Exacerbation Viral Syndrome Pneumonia. The patient's pulmonary embolism risk score was calculated as follows: Total Score: 0-2 points. This patient was found to be at low risk for a pulmonary embolism by using the Well's assessment criteria. Immunization status: Pneumococcal vaccine: Influenza vaccine: Data reviewed: vital signs, nurses notes, lab test result(s), EKG, radiologic studies, plain films. Test interpretation: by ED physician or midlevel provider: ECG, plain radiologic studies. Counseling: I had a detailed discussion with the patient and/or guardian regarding: the historical points, exam findings, and any diagnostic results supporting the discharge/admit diagnosis, lab results, radiology results. 01/20 02:05 Order name: Basic Metabolic Panel; Complete Time: 03:44 [facility] 01/20 02:05 Order name: CBC with Diff; Complete Time: 05:02 [facility] 01/20 02:05 Order name: LFT's; Complete Time: 03:44 [facility] 01/20 02:05 Order name: Magnesium; Complete Time: 03:44 [facility] 01/20 02:05 Order name: NT PRO-BNP; Complete Time: 03:44 [facility] 01/20 02:05 Order name: PT-INR; Complete Time: 03:32 [facility] 01/20 02:05 Order name: Troponin HS; Complete Time: 03:44 [facility] 01/20 02:05 Order name: XRAY Chest (1 view) [facility] 01/20 02:05 Order name: SARS-COV-2 RT PCR (Document "Date of Onset" if Symptomatic); Complete Time: [facility] 05:02 01/20 02:29 Order name: Blood Culture Adult (2) [facility] 01/20 02:29 Order name: Lactate; Complete Time: 03:44 [facility] 01/20 02:29 Order name: BIPAP [facility] 01/20 02:29 Order name: ABG; Complete Time: 03:32 [facility] 01/20 03:41 Order name: CBC Smear Scan; Complete Time: 05:02 EDMS 01/20 02:05 Order name: EKG; Complete Time: 02:06 [facility] 01/20 02:05 Order name: Cardiac monitoring; Complete Time: 02:16 [facility] 01/20 02:05 Order name: EKG - Nurse/Tech; Complete Time: 04:14 [facility] 01/20 02:05 Order name: IV Saline Lock; Complete Time: 03:22 [facility] 01/20 02:05 Order name: Labs collected and sent; Complete Time: 03:22 [facility] 01/20 02:05 Order name: O2 Per Protocol; Complete Time: 02:16 [facility] 01/20 02:58 Order name: CT Chest Wo Con osmany 01/20 03:01 Order name: Thorax Wo Con EDMS 01/20 02:05 Order name: O2 Sat Monitoring; Complete Time: 02:16 osmany Administered Medications: 03:05 Drug: SOLU-Medrol (methylPrednisoLONE) 125 mg Route: IVP; Site: left jugular; ke1 03:30 Follow up: Response: Marked relief of symptoms ke1 03:05 Drug: Pepcid (famotidine) 20 mg Route: IVP; Site: left jugular; ke1 03:30 Follow up: Response: Marked relief of symptoms ke1 04:31 Follow up: Response: No adverse reaction; Marked relief of symptoms ke1 03:05 Drug: Digoxin 0.5 mg Route: IVP; Site: left jugular; ke1 04:31 Follow up: Pulse 56 bpm; Response: Marked relief of symptoms ke1 03:40 Drug: Lopressor (metoprolol) 5 mg {Note: 155/76 100.} Route: IVP; Site: left jugular; ke1 04:31 Follow up: Pulse 56 bpm; Response: Marked relief of symptoms ke1 03:40 Drug: Lopressor (metoprolol TARTRATE) 50 mg Route: PO; ke1 04:30 Follow up: Response: Marked relief of symptoms ke1 03:42 Drug: Xopenex (levalbuterol) 2.5 mg Route: Inhalation; ke1 03:42 Drug: AtroVENT (ipratropium) Aerosol 0.5 mg Route: Inhalation; ke1 05:14 Drug: Zosyn (piperacillin-tazobactam) 3.375 grams Route: IVPB; Infused Over: 60 mins; ke1 Site: left jugular; Disposition Summary: 01/20/22 04:58 Hospitalization Ordered Hospitalization Status: Inpatient Admission osmany Provider: Avtar Melton cha Condition: Fair osmany Problem: new osmany Symptoms: have improved osmany Bed/Room Type: Standard osmany Location: Intensive Care Unit(01/20/22 05:53) Room Assignment: 7-(01/20/22 05:53) Diagnosis - Pleural effusion in other conditions classified elsewhere - RIGHT PNEUMONECTOMY, osmany MODERATE LEFTPLEURAL EFFUSION - Hypoxemia osmany - Chronic atrial fibrillation - RVR osmany - 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
[2022-01-20] MEDS ORDERED: NA CHLORIDE 0.9% 100 ML ONE ×2 (05:11→09:09)
[2022-01-20] MEDS ORDERED: PIPERACIL/TAZO 3.375 GM VIAL IV ONE ×2 (05:11→09:10)
--- NOTE | 2022-01-20 05:24 | P.HP ---
Certification for Inpatient Patient admitted to: Inpatient With expected LOS: >2 Midnights Patient will require the following post-hospital care: None Practitioner: I am a practitioner with admitting privileges, knowledge of patient current condition, hospital course, and medical plan of care. Services: Services provided to patient in accordance with Admission requirements found in Title 42 Section 412.3 of the Code of Federal Regulations Patient History Date of Service: 01/20/22 Reason for admission: Pleural Effusion History of Present Illness: Patient is a 70-year-old male with history of atrial fibrillation on chronic anticoagulation therapy, CAD status post CABG, hyperlipidemia, hypertension, BPH and lung cancer with metastasis presents the emergency department with complaints of worsening SHOB and cough. Patient with know lung cancer, 3 year s/p right pneumonectomy with chronic right pleural fluid collection, not undergoing therapy. Patient was tachycardic and tachypneic on presentation. ABG was showed pH 7.33, PCO2 48.7, PO2 177. He was placed on BiPAP. He was also given 0.5 digoxin and p.o. and IV Lopressor for A. fib RVR. Labs significant for sodium 131, WBC 14.1, hemoglobin 9, hematocrit 29.1, platelets 573, BNP 3000, troponin at bedtime 146. Chest x-ray showed moderate left pleural effusion that is new compared to prior exam and chronic right pleural effusion. He was given breathing treatments, Solu-Medrol, and Zosyn. Lopressor dropped his heart rate into the 40s. Patient and are irish speaking only. I spo ke with daughter about his condition. Patient is admitted for further evaluation and treatment. Allergies levofloxacin [From Levaquin] Allergy (Verified 12/14/21 01:40) Itching/Hives/Rash Home Medications: Aspirin 81 mg PO DAILY #30 tab.chew 05/12/18 Atorvastatin Calcium [Lipitor] 80 mg PO BEDTIME #30 tab 05/12/18 Doxycycline Hyclate 100 mg PO BID #20 tablet 02/05/19 Budesonide/Formoterol Fumarate [Symbicort 80-4.5 Mcg Inhaler] 2 puff IH DAILY 03/31/21 Lisinopril [Zestril] 10 mg PO DAILY 03/31/21 Tamsulosin [Flomax*] 1 tab PO DAILY 03/31/21 Aspirin [Aspirin EC 81 MG] 81 mg PO DAILY 30 Days #30 tablet. 04/02/21 - Past Medical/Surgical History Diabetic: No -: HTN -: hyperlipidemia -: Afib -: Lung Cancer with lung metastases -: CAD -: Lip surg -: Right Lobectomy -: Heart stents -: Bypass Psychosocial/ Personal History: Patient lives at home with . - Family History Brother -: Cancer - Social History Smoking Status: Former smoker Alcohol use: No CD- Drugs: No Caffeine use: Yes Place of Residence: Home Review of Systems Respiratory: Cough, Shortness of Breath Physical Examination - Physical Exam General: Alert, In no apparent distress HEENT: Atraumatic, PERRLA, EOMI, Sclerae nonicteric Neck: Supple, No LAD Respiratory: Diminished, Crackles/rales Cardiovascular: Regular rate/rhythm, Normal S1 S2 Gastrointestinal: Normal bowel sounds, No tenderness Musculoskeletal: No tenderness Integumentary: No rashes Neurological: Normal speech, Normal strength at 5/5 x4 extr, Normal tone, Normal affect - Studies Laboratory Data (last 24 hrs) 01/20/22 02:45: PT 28.4 H, INR 2.53 01/20/22 02:45: WBC 14.1 H, Hgb 9.0 L, Hct 29.1 L, Plt Count 573 H 01/20/22 02:45: Sodium 131 L, Potassium 4.3, BUN 14, Creatinine 0.97, Glucose 134 H, Magnesium 2.0, Total Bilirubin 0.4, AST 14 L, ALT < 10 L, Alkaline Phosphatase 138 H Assessment and Plan - Problems (Diagnosis) (1) Pleural effusion Current Visit: Yes Status: Acute (2) Leukocytosis Current Visit: Yes Status: Acute Qualifiers: Leukocytosis type: unspecified Qualified Code(s): D72.829 - Elevated white blood cell count, unspecified (3) Lung malignancy Current Visit: Yes Status: Chronic Qualifiers: Laterality: right Lung location: unspecified part of lung Qualified Code(s): C34.91 - Malignant neoplasm of unspecified part of right bronchus or lung (4) Atrial fibrillation Current Visit: Yes Status: Chronic Qualifiers: Atrial fibrillation type: paroxysmal Qualified Code(s): I48.0 - Paroxysmal atrial fibrillation (5) HTN (hypertension) Current Visit: Yes Status: Chronic Qualifiers: Hypertension type: primary hypertension Qualified Code(s): I10 - Essential (primary) hypertension (6) Hyperlipidemia Current Visit: Yes Status: Chronic Qualifiers: Hyperlipidemia type: unspecified Qualified Code(s): E78.5 - Hyperlipidemia, unspecified - Plan -Continue bipap and monitor pulse ox -Zosyn for leukocytosis -Patient may need pleurex drain. Will defer to pulmonology and general surgery -Cont breathing treatments and IV steroids -Monitor and replete electrolytes per protocol -Reconcile and continue home medications -Lovenox for VTE ppx -Full code Discharge Plan: Home Plan to discharge in: Greater than 2 days - Advance Directives Does patient have a Living Will: No Does patient have a Durable POA for Healthcare: No - Code Status/Comfort Care Code Status Assessed: Yes (Full) Critical Care: No Time Spent Managing Pts Care (In Minutes): 50
[2022-01-20] MEDS ORDERED: ACETAMINOPHEN 500 MG TAB PO PRN (07:19)
[2022-01-20] MEDS ORDERED: ALBUTEROL 2.5 MG/3 ML NEB SOL NEB PRN (07:19)
[2022-01-20] MEDS ORDERED: METHYLPREDNISOLONE 125 MG INJ IV SCH (07:19)
[2022-01-20] MEDS ORDERED: ONDANSETRON 4 MG/2 ML VIAL IV PRN (07:19)
[2022-01-20] MEDS: ENOXAPARIN 40 MG/0.4 ML SQ SCH ×2 (09:00)
[2022-01-20] MEDS ORDERED: PIPER TAZO 3.375 GM in NA CHLORIDE 0.9% 100 ML IV SCH (09:00)
[2022-01-20] MEDS ORDERED: ENOXAPARIN 40 MG/0.4 ML SQ ONE (09:09)
[2022-01-20] MEDS: CEFTRIAXONE 1,000 MG in NA CHLORIDE 0.9% 50 ML IVPB SCH (13:10)
[2022-01-20 13:58] LABS: Ferritin 181.9 ng/mL (26-388)
[2022-01-20 14:01] VITALS: BMI 21.3
[2022-01-20] MEDS: ALBUTEROL 2.5 MG/3 ML NEB SOL NEB SCH ×2 (14:26→20:00)
[2022-01-20] MEDS: IPRATROPIUM BROM 0.5MG/2.5ML NEB SCH ×2 (14:26→20:00)
--- NOTE | 2022-01-20 15:26 | RAD REPORT ---
EXAM DESCRIPTION: CT - Thorax Delonte Renae - 01/20/2022 7:20 am CLINICAL HISTORY: The patient is 71 years old and is Male; Dyspnea, chronic, chest wall or pleura di sease suspected TECHNIQUE: Axial computed tomography images of the chest without intravenous contrast. Sagittal an d coronal reformatted images were created and reviewed. This CT exam was performed using one or mor e of the following dose reduction techniques: automated exposure control, adjustment of the mA and/ or kV according to patient size, and/or use of iterative reconstruction technique. COMPARISON: CT angiography chest March 31, 2021. FINDINGS: Lungs: Right pneumonectomy with chronic right pleural fluid collection and shift of the heart and mediastinum to the right.There is loss of the posterior right pleural fat with some extensi on into the extrapleural space posteriorly, axial image #24. Relative increase in soft tissue density at the right hilar surgical clips, not well defined. Pleural space: Moderate left pleural effusion, measuring up to 4.5 cm in thickness. No pneumothorax. Heart: Mild cardiac enlargement. Aortic valve replacement. Left atrial appendage clip. No signifi cant pericardial fluid. No significant coronary artery calcifications. Mediastinum: No pneumomediastinum. Bones/joints: Old postsurgical rib fractures/resections again noted. The amount of adjacent perio steal reaction is mildly increased compared with the prior exam. No dislocation. Soft tissues: Unremarkable. Vasculature: Unremarkable. No thoracic aortic aneurysm. Lymph nodes: No pathologically enlarged lymph nodes. Liver: Ill-defined hypodense area in the right hepatic lobe is increased in conspicuity, suspicio us for enlarging mass. Kidneys and ureters: Bilateral perinephric stranding, nonspecific. Punctate bilateral nephrolithi asis without hydronephrosis. Tubes, lines and devices: Sternal closure wires. IMPRESSION: 1. Right pneumonectomy with chronic right pleural fluid collection and shift of the he art and mediastinum to the right. There is new loss of the posterior right pleural fat with some exte nsion into the extrapleural space posteriorly, axial image #24. Findings raise suspicion for infectio n and/or local malignant recurrence. 2. Old postsurgical rib fractures/resections again noted. The amount of adjacent periosteal reactio n is mildly increased compared with the prior exam, infection cannot be excluded. 3. Moderate left pleural effusion, measuring up to 4.5 cm in thickness. This is new compared with t he prior exam. 4. Relative increase in soft tissue density at the right hilar surgical clips, not well defined. Ma lignancy recurrence and/or adenopathy are considerations. 5. Ill-defined hypodense area in the right hepatic lobe is increased in conspicuity, suspicious for enlarging mass. If the patient is unable to receive IV contrast, ultrasound may be of further utilit y. Electronically signed by: Alexandria Kulkarni MD 01/20/2022 4:34 AM CDT Due to temporary technical issues with the PACS/Fluency reporting system, reports are being signed by the in house radiologists without review as a courtesy to insure prompt reporting. The interpreting radiologist is fully responsible for the content of the report.
--- NOTE | 2022-01-20 15:28 | RAD REPORT ---
EXAM DESCRIPTION: RAD - Chest Single View - 01/20/2022 2:54 am CLINICAL HISTORY: 71 years Male, DYSPNEA COMPARISON: None. FINDINGS: There is opacification of the right hemithorax. No pneumothorax. Several surgical clips in the right hilar region are present. Heart size is difficult to assess given the right chest opacification. Aortic atherosclerosis is pres ent. Degenerative changes of the spine noted. Sternotomy changes are present. There is suggestion of prior partial resection of the right posterior sixth rib. IMPRESSION: Opacification throughout the right hemithorax which could be related to postoperative ch anges, atelectasis, or effusion with underlying pneumonia or mass not excluded. Electronically signed by: Taz Garcia MD 01/20/2022 3:53 AM CDT Due to temporary technical issues with the PACS/Fluency reporting system, reports are being signed by the in house radiologists without review as a courtesy to insure prompt reporting. The interpreting radiologist is fully responsible for the content of the report.
[2022-01-20] MEDS: LORazepam 2 MG/ML VIAL IV PRN ×2 (15:40→21:44)
[2022-01-20] MEDS ORDERED: LORazepam 2 MG/ML VIAL ONE (15:40)
[2022-01-20] MEDS: METHYLPREDNISOLONE 40 MG INJ IV SCH (16:58)
[2022-01-20] MEDS: RIVAROXABAN 20 MG TABLET PO SCH (16:58)
[2022-01-21] MEDS: METHYLPREDNISOLONE 40 MG INJ IV SCH ×2 (01:08→08:34)
[2022-01-21] MEDS: IPRATROPIUM BROM 0.5MG/2.5ML NEB SCH ×2 (02:00→08:15)
[2022-01-21] MEDS: ALBUTEROL 2.5 MG/3 ML NEB SOL NEB SCH ×2 (02:00→08:15)
[2022-01-21 04:47] LABS: Absolute Lymphocytes (CBC) 0.5 K/uL (0.7-4.9); Hematocrit 28.9 % (39.6-49.0); Lymphocytes % 3.7 % (15.3-44.8); MCV 68.9 fL (80-100); MPV 6.6 fL (7.6-11.3); RBC Red Blood Cell Count 4.19 M/uL (4.33-5.43)
[2022-01-21 05:12] LABS: AST/SGOT 8 U/L (15-37); Albumin 1.6 g/dL (3.4-5.0); Alkaline Phosphatase 107 U/L (45-117); BUN Blood Urea Nitrogen 20 mg/dL (7-18); Bicarbonate 26 mmol/L (21-32); Bilirubin Direct 0.1 mg/dL (0-0.2); Bilirubin Total 0.3 mg/dL (0.2-1.0); Glomerular Filtration Rate 77 ml/min (=/>90); Glucose Level 143 mg/dL (74-106); Magnesium 2.2 mg/dL (1.8-2.4); Protein, Total 6.1 g/dL (6.4-8.2); Sodium Level 133 mmol/L (136-145)
[2022-01-21 05:14] LABS: ALT/SGPT < 10 U/L (12-78)
--- NOTE | 2022-01-21 06:17 | P.PN ---
Date of Service: 01/21/22
--- NOTE | 2022-01-21 07:16 | RAD REPORT ---
EXAM DESCRIPTION: RAD - Chest Single View - 01/21/2022 6:16 am CLINICAL HISTORY: SOB, f/u opacities, pleural effusions COMPARISON: CT chest January 20, portable chest January 20 TECHNIQUE: AP portable chest image was obtained 01/21/2022 6:16 am . FINDINGS: Trachea remains shifted slightly to the right. Complete opacification of the right hemitho rax is again noted. Postsurgical change noted posterior ribcage. Left hemithorax remains clear. Heart is mostly obscured by the right side opacification and further obscured by affects of rotation. Left -side upper lobe vasculature within normal limits. No left-sided pneumothorax or measurable pleural effusion. IMPRESSION: Is detailed above, chest is stable from January 20 imaging.
--- NOTE | 2022-01-21 07:58 | EKG ---
Test Date: 2022-01-20 Test Time: 04:06:41 Commercial Pilot: ROSEMARY MEASUREMENT RESULTS: Intervals: Rate: 76 SD: QRSD: 106 QT: 412 QTc: 463 [place]: P: SD: QRS: -47 T: 81 INTERPRETIVE STATEMENTS: Atrial fibrillation with premature ventricular or aberrantly conducted complexes Left axis deviation Low voltage QRS Abnormal ECG Compared to ECG 12/13/2021 18:13:47 Ventricular premature complex(es) now present Low QRS voltage now present Sinus rhythm no longer present Atrial premature complex(es) no longer present First degree AV block no longer present T-wave abnormality no longer present Prolonged QT interval no longer present Electronically Signed On 01-21-22 07:55:35 CDT by Rishabh Webster
[2022-01-21] MEDS: CEFTRIAXONE 1,000 MG in NA CHLORIDE 0.9% 50 ML IVPB SCH (08:34)
[2022-01-21] MEDS: GUAIFENESIN 600 MG SA TAB PO SCH ×2 (08:35→21:39)
[2022-01-21] MEDS ORDERED: levoFLOXacin 500 MG TAB PO SCH (09:00)
--- NOTE | 2022-01-21 12:43 | P.PN ---
Subjective Date of Service: 01/21/22 Chief Complaint: COPD exacerbation Subjective: Improving (Patient is improving little confused otherwise he is on nasal cannula oxygen) Review of Systems General: Weakness Respiratory: Shortness of Breath Physical Examination - Vital Signs Temperature: 97.6 F Blood Pressure: 114/58 Pulse: 73 Respirations: 15 Pulse Ox (%): 99 - Physical Exam General: Alert Respiratory: Diminished (Managed on the right side) Gastrointestinal: Normal bowel sounds, Soft and benign Assessment And Plan - Current Problems (Diagnosis) (1) Metastatic primary lung cancer Current Visit: Yes Status: Acute Plan: Patient most likely has metastatic lung cancer s/p right-sided pneumonectomy admitted with mild hypoxemia hypercapnia severe microcytic anemia is very stable changed to p.o. prednisone continue with Rocephin for now evaluate for home oxygen Qualifiers: Laterality: right Qualified Code(s): C34.91 - Malignant neoplasm of unspecified part of right bronchus or lung
--- NOTE | 2022-01-21 12:48 | EKG ---
Test Date: 2022-01-20 Test Time: 04:08:26 Transcription Coordinator: ROSEMARY MEASUREMENT RESULTS: Intervals: Rate: 55 NM: QRSD: 102 QT: 428 QTc: 409 [place]: P: NM: QRS: -47 T: 63 INTERPRETIVE STATEMENTS: Atrial fibrillation with slow ventricular response with a competing junctional pacemaker Left axis deviation Low voltage QRS Incomplete right bundle branch block Septal infarct, age undetermined Abnormal ECG Compared to ECG 01/20/2022 04:06:41 Incomplete right bundle-branch block now present Myocardial infarct finding now present Ventricular premature complex(es) no longer present Electronically Signed On 01-21-22 12:47:09 CDT by Lew Momin
[2022-01-21] MEDS ORDERED: IPRATROPIUM BROM 0.5MG/2.5ML NEB PRN (13:06)
[2022-01-21] MEDS ORDERED: ALBUTEROL 2.5 MG/3 ML NEB SOL NEB PRN (13:06)
[2022-01-21] MEDS: levETIRAcetam 500 MG TAB PO SCH ×2 (14:00→21:40)
[2022-01-21] MEDS: RIVAROXABAN 20 MG TABLET PO SCH (17:16)
--- NOTE | 2022-01-21 20:05 | P.PN ---
Date of Service: 01/22/22 Subjective Subjective: Patient has been having difficulty with congestion. He is unable to really clear the sputum from his upper airway. However, speech therapy assessed the patient and he did okay with his swallow eval. Review of Systems General: Weakness Respiratory: Shortness of Breath Physical Examination - Vital Signs reviewed - Physical Exam General: Alert HEENT: Upper airway congestion CV: Irregularly irregular rate and rhythm Respiratory: Diminished (Managed on the right side) Gastrointestinal: Normal bowel sounds, Soft and benign Ext: No clubbing no cyanosis no edema Musculoskeletal: Patient with muscular atrophy diffusely Assessment And Plan - Current Problems (Diagnosis) (1) Metastatic primary lung cancer Current Visit: Yes Status: Acute Qualifiers: Laterality: right Qualified Code(s): C34.91 - Malignant neoplasm of unspecified part of right bronchus or lung (2) Malignant pleural effusion Current Visit: Yes Status: Acute Plan: Patient having a lot of difficulty with his swallowing. We did a bedside swallow eval as well as speech therapy modified barium swallow study which was unremarkable. CT imaging revealed a necrotic liver mass. This appeared to be connected to the lung. Patient is having some upper airway issues which we are monitoring closely. He is oxygenating well and he is interacting with the family at bedside. He is answering my questions as daughter is helping with interpretation. We will continue to monitor patient closely. Patient may need ENT consultation. Family does not want a lot of aggressive or heroic measures at this time. They will talk with each other and let us know how aggressive they want to be going forward.
[2022-01-21] MEDS: ATORVASTATIN 40 MG TAB PO SCH (21:40)
[2022-01-21] MEDS: predniSONE 20 MG TAB PO SCH (21:40)
[2022-01-21 22:27] LABS: Urine Appearance Clear (Clear); Urine Bilirubin Negative (Negative); Urine Blood Negative (Negative); Urine Color Yellow (Yellow); Urine Glucose Negative (Negative); Urine Protein Negative (Negative); Urine Urobilinogen 0.2 mg/dL (0.2-1.0)
[2022-01-22 05:16] LABS: Absolute Lymphocytes (CBC) 0.3 K/uL (0.7-4.9); Hematocrit 32.3 % (39.6-49.0); Lymphocytes % 1.6 % (15.3-44.8); MCV 69.1 fL (80-100); MPV 6.7 fL (7.6-11.3); RBC Red Blood Cell Count 4.67 M/uL (4.33-5.43)
[2022-01-22 05:24] LABS: AST/SGOT 7 U/L (15-37); Albumin 1.6 g/dL (3.4-5.0); Alkaline Phosphatase 96 U/L (45-117); BUN Blood Urea Nitrogen 24 mg/dL (7-18); Bicarbonate 27 mmol/L (21-32); Bilirubin Direct 0.2 mg/dL (0-0.2); Bilirubin Total 0.3 mg/dL (0.2-1.0); Glomerular Filtration Rate 80 ml/min (=/>90); Glucose Level 154 mg/dL (74-106); Magnesium 2.1 mg/dL (1.8-2.4); Sodium Level 135 mmol/L (136-145)
[2022-01-22 05:25] LABS: ALT/SGPT < 10 U/L (12-78)
[2022-01-22 05:45] LABS: Blood Morphology Comment NOTED (NOT SEEN); Platelet Estimate INCR
[2022-01-22 05:46] LABS: Anisocytosis 3+; Hypochromasia 1+
--- NOTE | 2022-01-22 08:26 | RAD REPORT ---
EXAM DESCRIPTION: Kira Single View01/22/2022 5:21 am CLINICAL HISTORY: Shortness of breath COMPARISON: January 21, 2022 FINDINGS: Right pneumonectomy with chronic opacification right hemithorax Small to moderate left pleural effusion unchanged. Postsurgical changes involve the chest
[2022-01-22] MEDS: levETIRAcetam 500 MG TAB PO SCH ×2 (08:43→20:05)
[2022-01-22] MEDS: CEFTRIAXONE 1,000 MG in NA CHLORIDE 0.9% 50 ML IVPB SCH (08:43)
[2022-01-22] MEDS: GUAIFENESIN 600 MG SA TAB PO SCH ×2 (08:43→20:05)
[2022-01-22] MEDS: predniSONE 20 MG TAB PO SCH ×2 (08:43→20:05)
[2022-01-22] MEDS ORDERED: TAMSULOSIN 0.4 MG SR CAP PO SCH (09:00)
[2022-01-22] MEDS ORDERED: lisinopriL 10 MG TAB PO SCH (09:00)
[2022-01-22] MEDS ORDERED: RIVAROXABAN 15 MG TABLET PO SCH (09:00)
--- NOTE | 2022-01-22 12:07 | ECHO ---
HEIGHT: 5 ft 8 in WEIGHT: 140 lb 5 oz DATE OF STUDY: 01/22/[address]: Avtar Melton MD 2-DIMENSIONAL: YES M.MODE: YES DOPPLER: YES COLOR FLOW: YES TDS: YES PORTABLE: YES DEFINITY: NO BUBBLE STUDY: NO DIAGNOSIS: ELEVATED TROPONIN CARDIAC HISTORY: CATHERIZATION: SURGERY: PROSTHETIC VALVE: PACEMAKER: MEASUREMENTS (cm) DIASTOLIC (NORMALS) SYSTOLIC (NORMALS) IVSd 1.0 (0.6-1.2) LA Diam (1.9-4.0) LVEF 60 % LVIDd 3.7 (3.5-5.7) LVIDs 2.5 (2.0-3.5) %FS 32% LVPWd 1.0 (0.6-1.2) Ao Diam 2.2 (2.0-3.7) 2 DIMENSIONAL ASSESSMENT: RIGHT ATRIUM: NORMAL LEFT ATRIUM: NORMAL RIGHT VENTRICLE: NORMAL LEFT VENTRICLE: NORMAL TRICUSPID VALVE: NORMAL MITRAL VALVE: NORMAL PULMONIC VALVE: NORMAL AORTIC VALVE: NORMAL PERICARDIAL EFFUSION: NONE AORTIC ROOT: NORMAL LEFT VENTRICULAR WALL MOTION: NORMAL. DOPPLER/COLOR FLOW: MILD AORTIC INSUFFICIENCY. COMMENTS: NORMAL LEFT VENTRICULAR EJECTION FRACTION 55-60%. NORMAL WALL MOTION. MILD AORTIC INSUFFICIENCY. TECHNOLOGIST: MART LEBRON
--- NOTE | 2022-01-22 14:19 | RAD REPORT ---
EXAM DESCRIPTION: RAD - Barium Swallow Modified - 01/22/2022 2:10 pm CLINICAL HISTORY: dysphagia COMPARISON: No comparisons TECHNIQUE: The patient was given liquid, semi-solid and solid forms of barium. Lateral view fluorosc opic imaging was performed in conjunction with speech pathology service. FINDINGS: CLEARED- WHOLE PILL WITH NECTAR, NOT CLEARED WTTH NECTAR. ASPIRATION, COUGH WITH THIN. PHARYNGEAL RESIDUE: VALLECULAR AND PYRIFORM WITH ALL CONSISTENCIES MODERATE TO SEVERE. ABSENT HYOID MOVEMENT, MINIMAL LARYNGEAL MOVEMENT Total fluoroscopy time: 7 minutes and 3 seconds
--- NOTE | 2022-01-22 15:23 | CON ---
Reason For Consultation: Troponin elevation. History Of Present Illness: This is a 71-year-old male known to me with history of atrial fibrillati on, on chronic anticoagulation. He has history of coronary artery disease, status post history of CA BG, dyslipidemia, hypertension, lung cancer, presented with worsening shortness of breath and cough a nd lower extremity edema, orthopnea, 3 years ago had right pneumonectomy with chronic right pleural e ffusion, required to be on BiPAP due to respiratory distress and at the time of my evaluation, he was breathing comfortably on 2 L of oxygen. Denies having any chest pain. Past Medical History: As outlined above in HPI. Medications: Refer to reconciliation sheet for detailed list. Allergies: LEVOFLOXACIN. Family History: No premature coronary artery disease or cancer. Social History: He does not smoke or drink. Does not use any drugs. Review of Systems: All systems reviewed and were negative except for what mentioned in HPI. Physical Examination: Vital Signs: Temperature is 98.4, pulse 63, breathing at 16, blood pressure 126/51, saturating 100% on 2 L oxygen. General: Pleasant, elderly male, in no apparent distress. Head and Neck: Pupils are equal, reactive to light. Intact eye movements. No JVD. No cervical lym phadenopathy. Neck is supple. Thyroid is not enlarged. Lungs: Rhonchi bilaterally. No accessory muscle use or muscle retraction. Heart: Irregularly irregular. No extra sounds. Abdomen: Soft, nontender. Bowel sounds positive. No organomegaly. No masses or hernia. No rigidi ty or rebound. Extremities: No clubbing or cyanosis. Intact pulses. Skin: No rash. Neurologic: Alert, awake, oriented x3. No acute focal deficits appreciated. Lymph Nodes: No cervical or axillary lymphadenopathy. Investigation: White blood cell count is 18.7 thousand, hemoglobin 9.9, platelet count is 553. Crea tinine is 1. Troponin is 146 and then 88. Assessment And Recommendations: 1.Elevated troponin with known coronary artery disease, history of bypass in the past; however, this is likely due to demand ischemia. The patient will need workup with a nuclear stress test, which ca n be arranged for as an outpatient and his echo was reviewed today and it is a normal ejection fracti on with normal wall motions. From Cardiology standpoint, we will plan for an outpatient nuclear stre ss test. 2.Atrial fibrillation, rate is controlled. The patient will need appendage closure. There was an a ttempt, was made by myself; however, could not pass the KIRSTIN probe due to severe stricture. Was seen by GI and scoped and there was an inflammatory process. He is on treatment for that. We will plan t o re-attempt appendage closure at a later time once his clinical condition is stable. 3.Leukocytosis with pleural perfusion. Being followed by Pulmonary. This could be related to his o ld malignancy. SR/MODL Voice ID: [id number] Report ID: [id number]
--- NOTE | 2022-01-22 16:35 | RAD REPORT ---
EXAM DESCRIPTION: CT - Chest Abdomen W Con - 01/22/2022 4:19 pm CLINICAL HISTORY: Chest and abdomen pain. aspiration, esophageal stricture COMPARISON: Thorax Wo Con dated 01/20/2022; Soft Tissue Neck W/Contr dated 01/22/2022 TECHNIQUE: Approximately 100 mL nonionic IV contrast was administered to the patient. All CT scans are performed using dose optimization technique as appropriate and may include automated exposure control or mA/KV adjustment according to patient size. FINDINGS: Right pneumonectomy is noted.There is soft tissue fullness noted in the region of the surg ical clips in the right hilum and extending inferiorly. Loculated fluid is present right hemithorax. Small to moderate left pleural effusion also present.No aortic or acute pulmonary arterial finding. P eriostitis is present along several of the right lateral ribs superiorly. Irregular necrotic rim enhancing mass in the right lobe liver is seen measuring 9.5 x 7.1 cm. No intr a or extrahepatic biliary tree dilatation. . The spleen, pancreas, adrenal glands and kidneys within normal limits. No bowel obstruction, free air, free fluid or abscess. Normal appendix. No pathologic lymphadenopath y in the abdomen or pelvis. Significant degenerative changes present lower lumbar spine. 14 mm degenerative anterolisthesis L4 on 5. IMPRESSION: Large irregular rim enhancing necrotic mass is seen in the right lobe superiorly of the liver. This may represent infection with direct extension from the right hemithorax or possibly tumor recurrence/direct invasion.The location of this collection high in the right lobe of the liver near the diaphragm makes percutaneous access not possible.
--- NOTE | 2022-01-22 16:39 | RAD REPORT ---
EXAM DESCRIPTION: CT - Soft Tissue Neck W/Contr CLINICAL HISTORY: esophgeal stricture, apsiration Neck pain COMPARISON: No comparisons TECHNIQUE All CT scans are performed using dose optimization technique as appropriate and may includ e automated exposure control or mA/KV adjustment according to patient size. FINDINGS: No bulky lymphadenopathy is seen in the neck. No soft tissue mass is evident. Symmetric midline structures noted. Salivary glands appear symmetric. The esophagus is not pathologic ally distended. Mild lower cervical degenerative changes. No prevertebral fluid or mass. IMPRESSION: No pathologic process identified in the neck.
[2022-01-22] MEDS: RIVAROXABAN 20 MG TABLET PO SCH (17:00)
[2022-01-22] MEDS: ATORVASTATIN 40 MG TAB PO SCH (20:05)
[2022-01-22] MEDS ORDERED: HYDROCORTISONE SUC 100 MG INJ IV SCH (21:00)
[2022-01-22] MEDS ORDERED: ENOXAPARIN 60 MG/0.6 ML SQ SCH (21:00)
[2022-01-22] MEDS: LORazepam 2 MG/ML VIAL IV PRN (21:39)
[2022-01-23 00:12] VITALS: O2SAT 100
[2022-01-23] MEDS ORDERED: RSI MEDICATION KIT IV ONE (05:36)
[2022-01-23] MEDS ORDERED: EPINEPHrine 1 MG/10 ML SYR IV ONE (05:40)
[2022-01-23] MEDS ORDERED: NA CHLORIDE 0.9% 1,000 ML IV ONE (05:40)
--- NOTE | 2022-01-23 05:51 | P.PN ---
Date of Service: 01/23/22 Nurses noted patient became bradycardic followed by asystole. CPR was initiated, ACLS was performed and patient received mutiple rounds of epinephrine and remained in asystole. Patient was intubated with first pass success. was at bedside and situation was discussed, she was in agreement to stop CPR and let him pass naturally. Time of was called at 0541.
[2022-01-23 06:42] VITALS: BP 126/41; TEMP 96.9
--- NOTE | 2022-01-23 07:35 | P.DS ---
Discharge Date: 01/23/22 Disposition: Reason for Admission: COPD exacerbation Brief History of Present Illness: Patient is a 70-year-old male with history of atrial fibrillation on chronic anticoagulation therapy, CAD status post CABG, hyperlipidemia, hypertension, BPH and lung cancer with metastasis presents the emergency department with complaints of worsening SHOB and cough. Patient with know lung cancer, 3 year s/p right pneumonectomy with chronic right pleural fluid collection, not undergoing therapy. Patient was tachycardic and tachypneic on presentation. ABG was showed pH 7.33, PCO2 48.7, PO2 177. He was placed on BiPAP. He was also given 0.5 digoxin and p.o. and IV Lopressor for A. fib RVR. Labs significant for sodium 131, WBC 14.1, hemoglobin 9, hematocrit 29.1, platelets 573, BNP 3000, troponin at bedtime 146. Chest x-ray showed moderate left pleural effusion that is new compared to prior exam and chronic right pleural effusion. He was given breathing treatments, Solu-Medrol, and Zosyn. Lopressor dropped his heart rate into the 40s. Patient and are yi speaking only. I spoke with daughter about his condition. Patient is admitted for further evaluation and treatment. Hospital Course: Patient was worked up with imaging studies which revealed a necrotic liver mass. The family was aware of this and was told it was a malignancy that had become necrotic and patient's prognosis was poor as he did not want to do chemo. Patient had been declining. Patient was scheduled for a watchman procedure but he apparently has some kind of gastro or pulmonary issue that prevented this. Patient was discharged from the outside hospital but he was really weak. He still was not really doing well so he was admitted to our facility. Patient clinically is very debilitated. He appears to be having some difficulty swallowing but we did a swallow eval which she passed. However he was holding onto some medicine and he would choke quite frequently. In the evening, patient pretty much had a uneventful night. However around 5:00 it was noted that he became bradycardic. He went into cardiac arrest from there. He try to resuscitate him but they were unsuccessful. Patient at 541. Home Medications: Budesonide/Formoterol Fumarate [Symbicort 80-4.5 Mcg Inhaler] 2 puff IH DAILY 03/31/21 Lisinopril [Zestril] 10 mg PO DAILY 03/31/21 Tamsulosin [Flomax*] 1 tab PO DAILY 03/31/21 Atorvastatin Calcium [Lipitor] 40 mg PO BEDTIME 01/20/22 Levetiracetam [Keppra] 500 mg PO BID 01/20/22 Rivaroxaban [Xarelto] 15 mg PO DAILY 01/20/22 Physician Discharge Instructions: Patient Followup: Hiro Cortez MD [Primary Care Provider] - Time spent managing pt's care (in minutes): 10
--- NOTE | 2022-01-23 07:39 | RAD REPORT ---
EXAM DESCRIPTION: RAD - Chest Single View - 01/23/2022 5:48 am CLINICAL HISTORY: pneumonia COMPARISON: CT chest January 22, portable chest January 22 TECHNIQUE: AP portable chest image was obtained 01/23/2022 5:48 am . FINDINGS: Interstitial and airspace opacities have developed in the lower left lung field. This woul d be consistent with pneumonia history. Upper left lung field has not changed. Complete opacification of the right hemithorax is still present. Heart size is stable. No pneumothorax. IMPRESSION: New interstitial and alveolar opacification lower left lung field consistent with pneumo rosendo.
[2022-01-23] MEDS ORDERED: levETIRAcetam 500 MG in NA CHLORIDE 0.9% 100 ML IV SCH (23:45)
--- OUTSIDE RECORDS SUMMARY | 2022-02-05 09:17 | XMS REPORT | Continuity of Care Document ---
:1950 Author Organization [facility] t Address [address] [place] [address] Care Team Providers Name Role Phone Josselin Overton Primary Care Physician Maggie Delgado Attending Clinician Unavailable Liliane Attending Clinician Unavailable Marilia DELATORRE Attending Clinician Unavailable DEB Attending [...] STEELE Attending Clinician Alli Almonte Attending Clinician Liliane Admitting Clinician Unavailable Payers Payer Name Policy Type Policy Number Effective Date Expiration Date S iban [facility] MED[facility] [id number] 2021 ADVANTAGE 00:00:00 [facility] MED[facility] [id number] 2020 COMPLETE CHOICE 00:00:00 Problems Condition Condition [...] rs active active ity of problems problems [facility] Allergies, Adverse Reactions, Alerts Allergy Allergy Status Severity Reaction(s) Onset Inactive Treating Comm ents Source Name Type Date Date Clinician levoflox DA Active U [facility] acin 6-13 Clear 00:00: Venegas 00 [facility] NO KNOWN Drug Active Univers ALLERGIE Class ity of S [facility] Social History Social Habit Start Date Stop Date Quantity Comments Source Exposure to Not sure [facility] SARS-CoV-2 (event) [facility] Sex Assigned At [birth year] [facility] 00:00:00 00:00:00 Smoking Status Start Date Stop Date Source Former smoker [facility] Tobacco smoking consumption unknown [facility] Medications Ordered Filled Start Stop Current Ordering [...] by mouth ity of tablet 14:39: at [place] 14 bedtime. Medical Branch budesonide/ Yes Inhale. Uni vers formoterol 7-14 ity of fumarate 14:39: [place] (SYMBICORT 14 Medical INHALE) Branch rivaroxaban Yes [...] by mouth ity of tablet 14:39: at [place] 14 bedtime. Medical Branch budesonide/ Yes Inhale. Uni vers formoterol 7-14 ity of fumarate 14:39: [place] (SYMBICORT 14 Medical INHALE) Branch ASPIRIN Yes 81mg Take 81 mg Univ ers ORAL 7-14 by mouth. ity of 14:39: [address] Branch tamsulosin Yes .4mg Take 0.4 Uni vers HCl 7-14 mg by ity of [place] Branch lisinopriL Yes 10mg Take 10 mg U nivers 10 mg 7-14 by mouth ity of tablet 14:39: daily. [address] Branch levETIRAcet Yes 500mg Take 500 U nivers am 500 mg 7-14 mg by ity of tablet 14:39: mouth [address] [place] [address] (two) Medical times [place] daily. ASPIRIN Yes 81mg Take 81 mg Univ ers ORAL 7-14 by mouth. ity of 14:39: [address] Branch tamsulosin Yes .4mg Take 0.4 Uni vers HCl 7-14 mg by ity of ([place]ULOSIN [place] [address] [place] [address] Branch lisinopriL Yes 10mg Take 10 mg U nivers 10 mg 7-14 by mouth ity of tablet 14:39: daily. [address] levETIRAcet Yes 500mg Take 500 U nivers am 500 mg 7-14 mg by ity of tablet 14:39: mouth [address] [place] [address] (two) Medical times Branch daily. Aspir-Low Aspir-Low Yes [place] 81 MG [...] Tablet Daily ans TDD:5mg Gabapentin Gabapentin Yes [place] 100 MG Oral 100 MG Oral P hysici Capsule Capsule ans Vital Signs Vital Name Observation Time Observation Value Comments Source Body height 2021-05-14 167.6 cm [facility] 14:11:18 Body weight 2021-05-14 70.909 kg [facility] 14:11:18 BMI 2021-05-14 25.23 kg/m2 [facility] 14:11:18 Systolic blood 2021-03-13 148 mm[Hg] [address] of pressure 21:37:00 [facility] Diastolic blood 2021-03-13 71 mm[Hg] [address] o f pressure 21:37:00 [facility] Heart rate 2021-03-13 75 /min University 21:37:00 [facility] Body temperature 2021-03-13 36.22 [place] [facility] of 21:37:00 [facility] Respiratory rate 2021-03-13 18 /min University of 21:37:00 [facility] Body height 2021-03-13 170.2 cm University of 21:37:00 [facility] Body weight 2021-03-13 83.825 kg University of 21:37:00 [facility] BMI 2021-03-13 28.94 kg/m2 University of 21:37:00 [facility] Oxygen saturation 2021-03-13 95 /min [facility] in Arterial blood 21:37:00 [facility] Pulse oximetry Branch BP Systolic 2019-05-04 109 mm[Hg] Location: RUE; [facility] 16:10:00 Position: Sitting BP Diastolic 2019-05-04 62 mm[Hg] Location: RUE; [facility] 16:10:00 Position: Sitting Height 2019-05-04 67 [in_us] [facility] 16:10:00 Weight 2019-05-04 174.5 [lb_av] [facility] 16:10:00 Body Mass Index 2019-05-04 27.33 [...] Physicians 15:37:00 Procedures Procedure Date / Time Performing Clinician Source Performed [id number] 2022-01-10 00:00:00 COLTEN [facility] BRONCHOSCOPY 2021-05-14 00:00:00 Dago Boyd [facility] CT CHEST W CONTRAST 2021-05-02 20:08:29 [facility] [N] 2D Echo complete, 2019-05-06 00:00:00 [facility] with Doppler 70745 [N] Venous Duplex Lower 2019-05-06 00:00:00 [facility] Bilateral Complete PFTs w/DLCO 2019-04-05 00:00:00 [facility] and Lung Volumes History [facility] Aortic Valve [facility] Re[facility] Plan of Care Planned Activity Planned Date Details Comments Source Diagnostic Test 2019-05-06 00:00:00 [N] 2D Echo complete, [facility] Pending with Doppler 93816 [code = [N] 2D Echo complete, with Doppler 90184] Diagnostic Test 2019-05-06 00:00:00 [N] Venous Duplex [facility] Pending Lower Bilateral [code = [N] Venous Duplex Lower Bilateral] Diagnostic Test 2019-05-06 00:00:00 [N] 2D Echo complete, [facility] Pending with Doppler 33455 [code = [N] 2D Echo complete, with Doppler 91934] Diagnostic Test 2019-05-06 00:00:00 [N] Venous Duplex [facility] Pending Lower Bilateral [code = [N] Venous Duplex Lower Bilateral] Encounters Start End Encounter Admission Attending Care Care Encounter Source Date/Time Date/Time Type Type Clinicians Facility Department ID 2022-01-08 Inpatient PIETRO Delgado [facility] OUTD [id number] [facility] 10:00:00 Ju 42 [facility] 2021-12-30 Inpatient PIETRO Momin, [facility] CARD [id number] [facility] 11:00:00 Lew [id number] [facility] 2021-09-26 Outpatient NANDINI, [facility] [id number] [place] 01:05:11 [facility] 2021-08-20 Outpatient NANDINI, [facility] [id number] [place] 01:04:31 [facility] 2021-08-08 Outpatient DEB [facility] [id number] [place] 01:03:17 [facility] 2021-08-06 [facility] [id number] [place] 01:04:53 [facility] 2021-07-23 Outpatient THUAN DELATORRE [facility] [id number] [place] 01:03:56 [facility] 2021-07-03 [facility] [id number] MH HH 08:45:16 [facility] 2019-04-12 Inpatient MHH [facility] [id number] MHH H 05:53:00 2022-01-08 2022-01-12 Inpatient PIETRO Delgado HC[facility] INTE [id number] [facility] 05:42:00 13:56:00 Ju 73 [facility] 2022-01-08 2022-01-12 Inpatient PIETRO Delgado [facility] INTE [id number] [facility] 05:42:00 13:56:00 Ju [id number] [facility] 2021-12-30 2021-12-30 Outpatient PIETRO Momin [facility] 3DAY [id number] [facility] 00:00:00 23:59:00 Lew 62 [facility] 2021-06-27 2021-07-19 Outpatient NANDINI THUAN [facility] [id number] HH 13:40:00 18:00:00 2021-07-02 2021-07-02 EXT MHH OP Aguilar, EXT MSRDP [id number] [place] 00:00:00 00:00:00 [facility] [id number] H [facility] [id number] 2021-06-14 2021-06-14 Outpatient DEB, [facility] PUL [id number] MHHH 07:03:00 12:46:00 [facility] 2021-06-12 2021-06-12 Outpatient R GABRIELLA HINES [facility] [id number] Univers 16:00:00 16:00:00 GABRIELLA HINES [id number] [facility] 2021-06-12 2021-06-12 Outpatient R GABRIELLA HINES [facility] [id number] Univers 16:00:00 16:00:00 GABRIELLA HINES ity of [facility] 2021-05-31 2021-05-31 EXT [facility] OP Deb, EXT MSRDP [id number] [place] 00:00:00 00:00:00 Pushan LOCATION [id number] H ealth [id number] 2021-04-23 2021-05-22 Outpatient NANDINI, THUAN [facility] [id number] [facility] 14:53:00 23:59:00 2021-05-14 2021-05-14 Outpatient DEB, [facility] PUL [id number] [facility] 07:31:00 11:15:00 [facility] 2021-05-09 2021-05-09 EXT [facility] OP Deb, EXT MSRDP [id number] [place] 00:00:00 00:00:00 Pushan LOCATION [id number] H ealth [id number] 2021-05-01 2021-05-01 EXT [facility] OP Annamarie Fonseca EXT MSRDP [id number] [place] 00:00:00 00:00:00 LOCATION [id number] H ealth [id number] 2021-03-22 2021-03-22 Telephone Shaquille [facility] [id number] [facility] 00:00:00 00:00:00 Strahil T Ovalo [id number] [id number] [id number] [facility] nal [address] [place] [address] 2021-03-13 2021-03-13 Office Shaquille [facility] [id number] [facility] 16:31:31 16:51:31 Visit Strahil T Ovalo [id number] [id number] [phone] [facility] nal [address] [place] [address] 2021-03-132021-03-13 Outpatient R RICARDOGABRIELLA MADSEN [facility] [id number] Univers 16:20:00 16:20:00 GABRIELLA HINES [id number] ity [facility] 2021-03-13 2021-03-13 Outpatient R RICARDOADILENE MADSENSDCassandra [facility] [id number] Univers 16:20:00 16:20:00 RICARDOJEANNESHIKHAADILENEDEVON ity [facility] 2021-03-06 2021-03-06 Outpatient R [facility] [id number] Univers 19:30:00 19:30:00 [id number] ity [facility] 2021-03-06 2021-03-06 Outpatient R RICARDOADILENE MADSENSDCassandra [facility] [id number] Univers 19:30:00 19:30:00 RICARDOADILENE MADSENDEVON ity [facility] 2021-03-05 2021-03-05 Outpatient R [facility] [id number] Univers 15:15:00 15:15:00 [id number] ity [facility] 2021-03-05 2021-03-05 Outpatient R [facility] [id number] Univers 15:15:00 15:15:00 ity [facility] 2021-03-04 2021-03-04 Outpatient R [facility] [id number] Univers 08:30:00 08:30:00 [id number] ity [facility] 2021-03-04 2021-03-04 Outpatient R [facility] [id number] Univers 08:30:00 08:30:00 ity [facility] 2021-03-01 2021-03-01 Outpatient R [facility] [id number] Univers 08:30:00 08:30:00 [id number] ity [facility] 2021-02-20 2021-02-20 Outpatient R SHAQUILLEADILENEDEVON [facility] [id number] Univers 11:40:00 11:40:00 GABRIELLA HINES 8 04 ity [facility] 2021-02-20 2021-02-20 [facility] [id number] Univers 11:40:00 11:40:00 [facility] 2021-[facility]-09 2021-02-09 Outpatient [facility] [id number] Univers 19:30:00 19:30:00 [id number] [facility] 2021-02-09 2021-02-09 Outpatient R GABRIELLA HINES [facility] [id number] Univers 19:30:00 19:30:00 GABRIELLA HINES [facility] 2021-01-30 2021-01-30 Outpatient R ATAADILENE MADSENSDCassandra [facility] [id number] Univers 09:00:00 09:00:00 GABRIELLA HINES [facility] 2019-05-04 2019-05-04 AppointGOVIND Kwon Multispec[facility] [id number] [place] 15:40:00 15:40:00 t; CHASE DUKES lty - rBian [place]ows M.D. 2019-05-02 2019-05-02 Appointsylvia LUA [facility] [id number] [place] 14:30:00 14:30:00 t; CHAVO LUA cic & Antione TONY M.D. Vascular roland Torres Surgery - [facility] 2019-04-26 2019-04-26 Appointsylvia DELATORRE [facility] [id number] [place] 10:00:00 10:00:00 t; THUAN DELATORRE M.D. P hysici SYED, M.D. ans 2019-04-08 2019-04-08 Outpatient [facility] [id number] [facility] 10:15:00 10:15:00 2019-04-08 2019-04-08 EXT MHH OP GONSALO Lua MSRDP [id number] [place] 00:00:00 00:00:00 Chavo DOWLING [id number] H ealt [id number] 2019-04-04 2019-04-04 GOVIND Simms [facility] [id number] [place] 14:30:00 14:30:00 t; CHAVO LUA Phy sici PHILIP, M.D. ans M.D. 2019-03-31 2019-03-31 Outpatient [facility] [id number] [facility] 13:39:00 13:39:00 2019-03-31 2019-03-31 AppointGOVIND Morillo [facility] [id number] [place] 13:00:00 13:00:00 t; THUAN DELATORRE M.D. P hysici SYED, M.D. ans 2019-02-19 2019-02-19 Inpatient U [facility] CAR [id number] [facility] 17:06:00 14:30:00 2019-02-19 2019-02-19 Outpatient [facility] DOMINGO [id number] [facility] 14:30:00 14:30:00 2019-02-19 2019-02-19 EXT [facility] OP Love, EXT MSRDP [id number] [place] 00:00:00 00:00:00 [facility] [id number] [facility] [id number] Results Test Description Test Time Test Comments Results Result Comments Source BASIC METABOLIC PANEL 2022-01-12 05:08:00 Test Item Value Reference Range Interpretation Comme nts SODIUM (test code = NA) 132 mEq/L 134-147 L POTASSIUM (test code = K) 3.8 mEq/L 3.4-5.0 N CHLORIDE (test code = CL) 99 mEq/L 100-108 L CARBON DIOXIDE (test code = CO2) 29 mEq/l 21-33 N ANION GAP (test code = GAP) 7 0-20 N GLUCOSE (test code = GLU) 105 mg/dL 70-110 N BLOOD UREA NITROGEN (test code = 15 mg/dL 7-18 N BUN) GLOMERULAR FILTRATION RATE (test 82.9 70-80 H Units of measure = ml/min/1.73 code = GFR) m2 CREATININE (test code = CREAT) 0.9 mg/dL 0.6-1.3 N CALCIUM (test code = CA) 9.1 mg/dL 8.0-10.5 N [id number] 05:08:00 Test Item Value Reference Range Interpretation Comments PHOSPHOROUS (test code = PHOS) 2.8 MG/DL 2.5-4.9 N [id number] 05:08:00 Test Item Value Reference Range Interpretation Comments MAGNESIUM (test code = MAG) 1.93 mg/dL 1.80-2.40 N CBC W/AUTO [id number] 04:55:00 Test Item Value Reference Range Interpretation Comments WHITE BLOOD CELL (test code = 11.8 x10 3/uL 4.5-11.0 H WBC) RED BLOOD CELL (test code = 3.28 x10 6/uL 4.00-5.60 L RBC) HEMOGLOBIN (test code = HGB) 7.1 g/dL 12.5-16.9 L HEMATOCRIT (test code = HCT) 23.4 % 37.5-50.7 L MEAN CELL VOLUME (test code = 71.3 fL 81.0-99.0 L MCV) MEAN CELL HGB (test code = MCH) 21.6 pg 27.0-33.0 L MEAN CELL HGB CONCETRATION 30.3 g/dL 33.0-37.0 L (test code = MCHC) RED CELL DISTRIBUTION WIDTH CV 23.1 % 11.5-14.5 H (test code = RDW) RED CELL DISTRIBUTION WIDTH SD 59.0 fL 37.0-54.0 H (test code = RDW-SD) PLATELET COUNT (test code = 371 x10 3/uL 150-400 N PLT) MEAN PLATELET VOLUME (test code 8.7 fL 7.0-9.0 N = MPV) NEUTROPHIL % (test code = NT%) 81.1 % 56.0-77.0 H IMMATURE GRANULOCYTE % (test 0.6 % 0.0-2.0 N code = IG%) LYMPHOCYTE % (test code = LY%) 6.4 % 14.0-32.0 L MONOCYTE % (test code = MO%) 10.9 % 4.8-9.0 H EOSINOPHIL % (test code = EO%) 0.8 % 0.3-3.7 N BASOPHIL % (test code = BA%) 0.2 % 0.0-2.0 N NUCLEATED RBC % (test code = 0.0 % 0-0 N NRBC%) NEUTROPHIL # (test code = NT#) 9.56 x10 3/uL 2.0-7.6 H IMMATURE GRANULOCYTE # (test 0.07 x10 3/uL 0.00-0.03 H code = IG#) LYMPHOCYTE # (test code = LY#) 0.76 x10 3/uL 1.0-3.8 L MONOCYTE # (test code = MO#) 1.29 x10 3/uL 0.1-0.8 H EOSINOPHIL # (test code = EO#) 0.10 x10 3/uL 0.0-0.2 N BASOPHIL # (test code = BA#) 0.02 x10 3/uL 0.0-0.2 N NUCLEATED RBC # (test code = 0.00 x10 3/uL 0.0-0.1 N NRBC#) MANUAL DIFF REQUIRED (test code NO = MDIFF) BASIC METABOLIC [id number] 04:41:00 Test Item Value Reference Range Interpretation Comments SODIUM (test code = NA) 131 mEq/L 134-147 L POTASSIUM (test code = 4.0 mEq/L 3.4-5.0 N K) CHLORIDE (test code = 98 mEq/L 100-108 L CL) CARBON DIOXIDE (test 28 mEq/l 21-33 N code = CO2) ANION GAP (test code = 8 0-20 N GAP) GLUCOSE (test code = 105 mg/dL 70-110 N GLU) BLOOD UREA NITROGEN 12 mg/dL 7-18 N (test code = BUN) GLOMERULAR FILTRATION 82.9 70-80 H Units of measure = RATE (test code = GFR) ml/mi n/1.73 m2 CREATININE (test code = 0.9 mg/dL 0.6-1.3 N CREAT) CALCIUM (test code = 9.7 mg/dL 8.0-10.5 N CA) [id number] 04:41:00 Test Item Value Reference Range Interpretation Comments PHOSPHOROUS (test code = PHOS) 2.8 MG/DL 2.5-4.9 N [id number] 04:41:00 Test Item Value Reference Range Interpretation Comments MAGNESIUM (test code = MAG) 2.09 mg/dL 1.80-2.40 N TSH REFLEX TO [id number] 04:41:00 Test Item Value Reference Range Interpretation Comments TSH REFLEX TO FT4 (test code = 2.41 IU/mL 0.42-5.47 N TSHREFLEX) CALCIUM [id number] 04:41:00 Test Item Value Reference Range Interpretation Comments CALCIUM IONIZED (test code = JOSE FRANCISCO) 1.25 MMOL/L 1.12-1.32 N CORTISOL [id number] 04:39:00 Test Item Value Reference Range Interpretation Comments CORTISOL AM (test 36.11 ug/dL Reference Interval: code = CORTAM) 2mo-13yrs: 2.4-22.9 ug/dL 14-15yrs(Male): 2.5-22.9 ug/dL 14-15yrs(Female ): 2.5-28.6 ug/dL 16-18yrs(M/F): 2.4-28.6 ug/dLAdults(M/F ) AM: 4.3-22.4 ug/dLAdults(M/F ) PM: 3.1-16.7 ug/d L CBC W/AUTO [id number] 04:15:00 Test Item Value Reference Range Interpretation Comments WHITE BLOOD CELL (test code = 14.9 x10 3/uL 4.5-11.0 H WBC) RED BLOOD CELL (test code = 3.92 x10 6/uL 4.00-5.60 L RBC) HEMOGLOBIN (test code = HGB) 8.4 g/dL 12.5-16.9 L HEMATOCRIT (test code = HCT) 28.0 % 37.5-50.7 L MEAN CELL VOLUME (test code = 71.4 fL 81.0-99.0 L MCV) MEAN CELL HGB (test code = 21.4 pg 27.0-33.0 L MCH) MEAN CELL HGB CONCETRATION 30.0 g/dL 33.0-37.0 L (test code = MCHC) RED CELL DISTRIBUTION WIDTH CV 23.7 % 11.5-14.5 H (test code = RDW) RED CELL DISTRIBUTION WIDTH SD 60.2 fL 37.0-54.0 H (test code = RDW-SD) PLATELET COUNT (test code = 425 x10 3/uL 150-400 H PLT) MEAN PLATELET VOLUME (test 9.1 fL 7.0-9.0 H code = MPV) NEUTROPHIL % (test code = NT%) 84.7 % 56.0-77.0 H IMMATURE GRANULOCYTE % (test 0.6 % 0.0-2.0 N code = IG%) LYMPHOCYTE % (test code = LY%) 4.4 % 14.0-32.0 L MONOCYTE % (test code = MO%) 9.7 % 4.8-9.0 H EOSINOPHIL % (test code = EO%) 0.5 % 0.3-3.7 N BASOPHIL % (test code = BA%) 0.1 % 0.0-2.0 N NUCLEATED RBC % (test code = 0.0 % 0-0 N NRBC%) NEUTROPHIL # (test code = NT#) 12.61 x10 3/uL 2.0-7.6 H IMMATURE GRANULOCYTE # (test 0.09 x10 3/uL 0.00-0.03 H code = IG#) LYMPHOCYTE # (test code = LY#) 0.66 x10 3/uL 1.0-3.8 L MONOCYTE # (test code = MO#) 1.45 x10 3/uL 0.1-0.8 H EOSINOPHIL # (test code = EO#) 0.08 x10 3/uL 0.0-0.2 N BASOPHIL # (test code = BA#) 0.02 x10 3/uL 0.0-0.2 N NUCLEATED RBC # (test code = 0.00 x10 3/uL 0.0-0.1 N NRBC#) MANUAL DIFF REQUIRED (test NO code = MDIFF) GLUCOSE [id number] 12:09:00 Test Item Value Reference Range Interpretation Comments GLUCOSE BEDSIDE (test 110 MG/DL 70-110 N [facility] med by certified code = GLUBED) 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 [facility] CBC W/AUTO [id number] 04:46:00 Test Item Value Reference Range Interpretation Comments WHITE BLOOD CELL (test code = 12.6 x10 3/uL 4.5-11.0 H WBC) RED BLOOD CELL (test code = 3.91 x10 6/uL 4.00-5.60 L RBC) HEMOGLOBIN (test code = HGB) 8.4 g/dL 12.5-16.9 L HEMATOCRIT (test code = HCT) 27.7 % 37.5-50.7 L MEAN CELL VOLUME (test code = 70.8 fL 81.0-99.0 L MCV) MEAN CELL HGB (test code = 21.5 pg 27.0-33.0 L MCH) MEAN CELL HGB CONCETRATION 30.3 g/dL 33.0-37.0 L (test code = MCHC) RED CELL DISTRIBUTION WIDTH CV 23.4 % 11.5-14.5 H (test code = RDW) PLATELET COUNT (test code = 397 x10 3/uL 150-400 N PLT) NEUTROPHIL % (test code = NT%) 83.9 % 56.0-77.0 H LYMPHOCYTE % (test code = LY%) 4.4 % 14.0-32.0 L NEUTROPHIL # (test code = NT#) 10.57 x10 3/uL 2.0-7.6 H LYMPHOCYTE # (test code = LY#) 0.55 x10 3/uL 1.0-3.8 L MANUAL DIFF REQUIRED (test NO code = MDIFF) RED CELL DISTRIBUTION WIDTH SD 58.7 fL 37.0-54.0 H (test code = RDW-SD) MEAN PLATELET VOLUME (test 8.8 fL 7.0-9.0 N code = MPV) IMMATURE GRANULOCYTE % (test 0.4 % 0.0-2.0 N code = IG%) MONOCYTE % (test code = MO%) 10.6 % 4.8-9.0 H EOSINOPHIL % (test code = EO%) 0.5 % 0.3-3.7 N BASOPHIL % (test code = BA%) 0.2 % 0.0-2.0 N NUCLEATED RBC % (test code = 0.0 % 0-0 N NRBC%) IMMATURE GRANULOCYTE # (test 0.05 x10 3/uL 0.00-0.03 H code = IG#) MONOCYTE # (test code = MO#) 1.34 x10 3/uL 0.1-0.8 H EOSINOPHIL # (test code = EO#) 0.06 x10 3/uL 0.0-0.2 N BASOPHIL # (test code = BA#) 0.02 x10 3/uL 0.0-0.2 N NUCLEATED RBC # (test code = 0.00 x10 3/uL 0.0-0.1 N NRBC#) RBC [id number] 04:46:00 Test Item Value Reference Range Interpretation Comments ANISOCYTOSIS (test code = ANISO) 1+ POLYCHROMASIA (test code = POLC) FEW MICROCYTOSIS (test code = MICR) 1+ ELLIPTOCYTES (test code = ELL) FEW SCHISTOCYTES (test code = ONELIA) FEW BASIC METABOLIC [id number] 04:34:00 Test Item Value Reference Range Interpretation Comments SODIUM (test code = NA) 132 mEq/L 134-147 L POTASSIUM (test code = 3.7 mEq/L 3.4-5.0 N K) CHLORIDE (test code = 99 mEq/L 100-108 L CL) CARBON DIOXIDE (test 29 mEq/l 21-33 N code = CO2) ANION GAP (test code = 7 0-20 N GAP) GLUCOSE (test code = 125 mg/dL 70-110 H GLU) BLOOD UREA NITROGEN 12 mg/dL 7-18 N (test code = BUN) GLOMERULAR FILTRATION 73.5 70-80 N Units of measure = RATE (test code = GFR) ml/mi n/1.73 m2 CREATININE (test code = 1.0 mg/dL 0.6-1.3 N CREAT) CALCIUM (test code = 9.1 mg/dL 8.0-10.5 N CA) [id number] 04:34:00 Test Item Value Reference Range Interpretation Comments PHOSPHOROUS (test code = PHOS) 3.0 MG/DL 2.5-4.9 N [id number] 04:34:00 Test Item Value Reference Range Interpretation Comments MAGNESIUM (test code = MAG) 1.86 mg/dL 1.80-2.40 CALCIUM [id number] 04:34:00 Test Item Value Reference Range Interpretation Comments CALCIUM IONIZED (test code = JOSE FRANCISCO) 1.30 MMOL/L 1.12-1.32 N BASIC METABOLIC [id number] 06:07:00 Test Item Value Reference Range Interpretation Comments SODIUM (test code = NA) 135 mEq/L 134-147 N POTASSIUM (test code = 3.8 mEq/L 3.4-5.0 N K) CHLORIDE (test code = 101 mEq/L 100-108 N CL) CARBON DIOXIDE (test 27 mEq/l 21-33 N code = CO2) ANION GAP (test code = 11 0-20 N GAP) GLUCOSE (test code = 81 mg/dL 70-110 N GLU) BLOOD UREA NITROGEN 13 mg/dL 7-18 N (test code = BUN) GLOMERULAR FILTRATION 73.5 70-80 N Units of measure = RATE (test code = GFR) ml/mi n/1.73 m2 CREATININE (test code = 1.0 mg/dL 0.6-1.3 N CREAT) CALCIUM (test code = 8.9 mg/dL 8.0-10.5 N CA) [id number] 06:07:00 Test Item Value Reference Range Interpretation Comments PHOSPHOROUS (test code = PHOS) 4.0 MG/DL 2.5-4.9 N [id number] 06:07:00 Test Item Value Reference Range Interpretation Comments MAGNESIUM (test code = MAG) 1.59 mg/dL 1.80-2.40 L CBC W/AUTO [id number] 05:59:00 Test Item Value Reference Range Interpretation Comments WHITE BLOOD CELL (test code = 13.6 x10 3/uL 4.5-11.0 H WBC) RED BLOOD CELL (test code = 4.03 x10 6/uL 4.00-5.60 N RBC) HEMOGLOBIN (test code = HGB) 8.6 g/dL 12.5-16.9 L HEMATOCRIT (test code = HCT) 28.5 % 37.5-50.7 L MEAN CELL VOLUME (test code = 70.7 fL 81.0-99.0 L MCV) MEAN CELL HGB (test code = 21.3 pg 27.0-33.0 L MCH) MEAN CELL HGB CONCETRATION 30.2 g/dL 33.0-37.0 L (test code = MCHC) RED CELL DISTRIBUTION WIDTH CV 23.4 % 11.5-14.5 H (test code = RDW) RED CELL DISTRIBUTION WIDTH SD 58.9 fL 37.0-54.0 H (test code = RDW-SD) PLATELET COUNT (test code = 451 x10 3/uL 150-400 H PLT) MEAN PLATELET VOLUME (test 9.1 fL 7.0-9.0 H code = MPV) NEUTROPHIL % (test code = NT%) 84.8 % 56.0-77.0 H IMMATURE GRANULOCYTE % (test 0.7 % 0.0-2.0 N code = IG%) LYMPHOCYTE % (test code = LY%) 4.0 % 14.0-32.0 L MONOCYTE % (test code = MO%) 9.8 % 4.8-9.0 H EOSINOPHIL % (test code = EO%) 0.4 % 0.3-3.7 N BASOPHIL % (test code = BA%) 0.3 % 0.0-2.0 N NUCLEATED RBC % (test code = 0.0 % 0-0 N NRBC%) NEUTROPHIL # (test code = NT#) 11.52 x10 3/uL 2.0-7.6 H IMMATURE GRANULOCYTE # (test 0.10 x10 3/uL 0.00-0.03 H code = IG#) LYMPHOCYTE # (test code = LY#) 0.55 x10 3/uL 1.0-3.8 L MONOCYTE # (test code = MO#) 1.34 x10 3/uL 0.1-0.8 H EOSINOPHIL # (test code = EO#) 0.06 x10 3/uL 0.0-0.2 N BASOPHIL # (test code = BA#) 0.04 x10 3/uL 0.0-0.2 N NUCLEATED RBC # (test code = 0.00 x10 3/uL 0.0-0.1 N NRBC#) MANUAL DIFF REQUIRED (test NO code = MDIFF) POC ARTERIAL BLOOD [id number] 16:27:00 Test Item Value Reference Range Interpretation Comments POC ARTERIAL BLOOD GAS PH (test 7.407 7.35-7.45 N code = POCPHA) POC ARTERIAL BLOOD GAS PCO2 38.1 mmHg 35.0-45 N (test code = [id number]) POC TCO2 ARTERIAL (test code = 25.2 POCTCO2) POC ARTERIAL BLOOD GAS PO2 (test 155.9 mmHg 80-100.0 H code = AMOIX4T) POC HCO3 ARTERIAL (test code = 24.0 MMOL/L 22.0-26.0 N [id number]) POC BASE EXCESS (test code = -0.7 MMOL/L -4.0-4.0 N POCBEA) POC O2 SATURATION (test code = 99.4 % 90-100 N POCO2S) FIO2 (test code = FIO2A) 30 % PaO2/FiO2 (test code = [id number]) 519.66 mm/Hg ABG DELIVERY (test code = LLUVIA) BiPAP ABG VENT MODE (test code = BiLevel MODEA) ABG VENT RESP RATE (test code = 14 /MIN RRA) ABG PEEP (test code = PEEPA) 6 cmH2O ABG PRESSURE SUPPORT (test code 12 cmH2O = PSABG) ABG SITE (test code = SITEA) R Radial WASHINGTON'S TEST (test code = N/A ALLENS) BASIC METABOLIC [id number] 16:27:00 Test Item Value Reference Range Interpretation Comments SODIUM (test code = NA/ABG) 141 MEQ/L 134-147 N POTASSIUM (test code = K/ABG) 4.1 MEQ/L 3.4-5.0 N CHLORIDE (test code = CL/ABG) 100 MEQ/L 100-108 N CREATININE ABG (test code = 1.0 mg/dL 0.8-1.3 N CREAABG) POC IONIZED CALCIUM (test code = 1.28 MMOL/L 1.12-1.32 N POCCA) POC GLUCOSE (test code = POCGLU) 116 MG/DL HEMOGLOBIN [id number] 16:27:00 Test Item Value Reference Range Interpretation Comments HEMOGLOBIN ABG (test code = 10.7 G/DL 12.5-16.9 L HGB/ABG) [id number] 16:27:00 Test Item Value Reference Range Interpretation Comments HEMATOCRIT (test code = HCT/ABG) 31 % 37.5-50.7 L POC LACTIC [id number] 16:27:00 Test Item Value Reference Range Interpretation Comments POC LACTIC ACID (test code = 1.5 mmol/l 0.9-1.7 N POCLAC) POC ARTERIAL BLOOD [id number] 14:59:00 Test Item Value Reference Range Interpretation Comments POC ARTERIAL BLOOD GAS PH (test 7.237 7.35-7.45 LL code = POCPHA) POC ARTERIAL BLOOD GAS PCO2 67.1 mmHg 35.0-45 HH (test code = ETZRFI1Q) POC TCO2 ARTERIAL (test code = 30.8 POCTCO2) POC ARTERIAL BLOOD GAS PO2 (test 310.7 mmHg 80-100.0 HH code = IKYBP2O) POC HCO3 ARTERIAL (test code = 28.7 MMOL/L 22.0-26.0 HH SDNQTA9U) POC BASE EXCESS (test code = 1.1 MMOL/L -4.0-4.0 N POCBEA) POC O2 SATURATION (test code = 99.9 % 90-100 N POCO2S) FIO2 (test code = FIO2A) 60 % PaO2/FiO2 (test code = [id number]) 517.83 mm/Hg ABG DELIVERY (test code = LLUVIA) Venti Mask ABG TEMPERATURE (test code = 98 F TEMPA) ABG SITE (test code = SITEA) Art Line WASHINGTON'S TEST (test code = N/A ALLENS) BASIC METABOLIC [id number] 14:59:00 Test Item Value Reference Range Interpretation Comments SODIUM (test code = NA/ABG) 137 MEQ/L 134-147 N POTASSIUM (test code = K/ABG) 4.6 MEQ/L 3.4-5.0 N CHLORIDE (test code = CL/ABG) 101 MEQ/L 100-108 N CREATININE ABG (test code = 1.0 mg/dL 0.8-1.3 N CREAABG) POC IONIZED CALCIUM (test code = 1.38 MMOL/L 1.12-1.32 H POCCA) POC GLUCOSE (test code = POCGLU) 123 MG/DL HEMOGLOBIN [id number] 14:59:00 Test Item Value Reference Range Interpretation Comments HEMOGLOBIN ABG (test code = 12.5 G/DL 12.5-16.9 N HGB/ABG) [id number] 14:59:00 Test Item Value Reference Range Interpretation Comments HEMATOCRIT (test code = HCT/ABG) 37 % 37.5-50.7 L POC LACTIC [id number] 14:59:00 Test Item Value Reference Range Interpretation Comments POC LACTIC ACID (test code = 1.0 mmol/l 0.9-1.7 N POCLAC) - XR CHEST 1 [id number] 00:00:00 [facility] : 1950 Sex: M FAX: Renetta Wyatt MD [phone] [place]: St: ADM FAX: Arin Lam [phone] FAX: Lew Guaman MD [phone] Name: DENILSON LEDBETTER [facility] : 1950 Age/S: 71/M [address] [place] [address] Unit #: [id number] Loc: [address] [address] Phys: Cherelle Wyatt Acct: [id number] Dis Date: Status: ADM IN PHONE #: [phone] Exam Date: 01/08/2022 1612 FAX #: [phone] Reason: RESP DISTRESSEXAMS: CPT CODE: [id number] XR CHEST 1 V 19540 PROCEDURE INFORMATION: Exam: XR Chest Exam date and time: 01/08/2022 3:31 PM Age: 71 years old Clinical indication: Device placement; Other: Watchman; Additional info: Watchman, resp distress TECHNIQUE: Imaging protocol: Radiologic exam of the chest. Views: 1 view. COMPARISON: DX XR CHEST2 V 12/30/2021 1:13 PM FINDINGS: Lungs: Complete opacification of right hemithorax onceagain seen with volume loss with cardiomediastinal shift to the right and surgical clips in this region. The left lung is well inflated and clear. No left pneumothorax or pleural effusion. Pleural spaces: See "Lungs" finding. Heart/Mediastinum: Cardiac valve replacement is seen. Left atrial appendage clip seen. The watchman device is unable to be visualized radiographically. Bones/joints: Sternotomy wires are present. IMPRESSION: Stable chest demonstrating complete opacification of right hemithorax with volume loss and overlying surgical clips. at 1644 Reported and signedby: Jay Stephenson M.D. CC: Felipe CHRISTIAN M.D. (SUDHA); Jeffery Llanos MD; Lew Momin MD Technologist: RT Cass(R) Trnscrd Date/Time/By: 01/08/2022 (1643) : By: [email or web address] Orig Print D/T: S: 01/08/2022 (1643) PAGE 1 Signed ReportCBC W/AUTO DIFF WITH PLATELETS 2021-12-12 04:27:48 Test Item Value Reference Range Interpretation Comments WBC (test code = 10.4 K/UL 3.5-11.0 1001) RBC (test code = 4.17 M/UL 4.50-6.10 L 1002) HEMOGLOBIN (test code 7.9 G/DL 13.5-17.0 L = 1003) HEMATOCRIT (test code 27.1 % 40.0-51.0 L = 1004) MCV (test code = 65.0 fL 80.0-99.0 L 1005) MCH (test code = 18.9 PG 25.0-33.0 L 1006) MCHC (test code = 29.2 G/DL 31.0-36.0 L 1007) RDW (test code = 16.8 % 11.5-15.0 H 1038) NEUTROPHILS (test 81.8 % code = 1008) LYMPHOCYTES (test 7.8 % code = 1010) MONOCYTES (test code 9.5 % = 1011) EOSINOPHILS (test 0.0 % code = 1012) BASOPHILS (test code 0.9 % = 1013) PLATELET COUNT (test 485 K/UL 130-400 H code = 1015) ABSOLUTE NEUTROPHILS 8.42 K/UL 1.50-7.50 H (test code = 1066) ABSOLUTE LYMPHOCYTES 0.70 K/UL 1.00-4.00 L (test code = 1067) ABSOLUTE MONOCYTES 1.14 K/UL 0.20-1.00 H (test code = 1068) ABSOLUTE EOSINOPHILS 0.02 K/UL 0.00-0.50 (test code = 1040) ABSOLUTE BASOPHILS 0.03 K/UL 0.00-0.20 (test code = 1069) ABS IMMATURE 0.05 K/UL 0.00-0.10 GRANULOCYTES (test code = 1020) ABS NUCLEATED RBCS 0.00 K/UL 0.00-0.11 (test code = 17781) COMMENTS (test code = (NOTE) SLIGHT 1016) ANISOCYTOSIS FEW ELLIPTOCYTE S MODERATE HYPOCHROMASIA MARKED MICROCY TOSIS SLIGHT POIKILOCYTOSIS FEW SCHISTOCY YARA PLATELETS APPEAR INCREASED UNLESS OTHERWISE INDIC ATED, ALL TESTING PER FORMED [facility] [place]. [address] [place] [address] LABORATORY DIRE CTOR: Brian OHARAIA JENNIFER R [id number] CAP ACCREDITATION N O. VITAMIN D, 25 [id number] 06:29:03 Test Item Value Reference Range Interpretation [...] UNLESS OTHERW ISE INDICATED, ALL TESTING PERFORMED [facility] [address] [place] [address] LABORATORY DIRE CTOR: Timothy MCKNIGHT NUMBER [id number] CAP ACCREDITATION N O. [id number] TSH, THIRD [id number] 05:23:02 Test Item Value Reference Range Interpretation Comments TSH, THIRD GENERATION (test code 2.240 UIU/ML 0.400-4.100 = 2821) COMPREHENSIVE METABOLIC [id number] 03:38:54 Test Item Value Reference Range Interpretation Comments GLUCOSE (test code = 103 MG/DL 70-99 H 2216) BUN (test code = 10 MG/DL 8-23 2207) CREATININE (test 1.02 MG/DL 0.80-1.40 code = 2213) eGFR (2020 CKD-EPI) 79 ML/MIN/1.73 >60 (test code = 20007) CALC BUN/CREAT (test 10 RATIO 6-28 code = 223) SODIUM (test code = 133 MEQ/L 857-078 5024) POTASSIUM (test code 4.5 MEQ/L 3.5-5.4 = 2227) CHLORIDE (test code 98 MEQ/L 95-107 = 2214) CARBON DIOXIDE (test 25 MEQ/L 19-31 code = 2205) CALCIUM (test code = 9.7 MG/DL 8.5-10.5 2208) PROTEIN, TOTAL (test 6.8 G/DL 6.1-8.3 code = 2228) ALBUMIN (test code = 3.1 G/DL 3.5-5.2 L 2200) CALC GLOBULIN (test 3.7 G/DL 1.9-3.7 code = 2239) CALC A/G RATIO (test 0.8 RATIO 1.0-2.6 L code = 223) BILIRUBIN, TOTAL 0.4 MG/DL See_Comment [Automated message] (test code = 2206) The syste m which generated this result transmit candace reference range : <=1.2. The refe rence range was not u sed to interpret th is result as normal/abnormal . ALKALINE PHOSPHATASE 123 U/L 40-125 (test code = 2203) AST (test code = 13 U/L 9-50 2217) ALT (test code = 9 U/L 5-50 2218) HEMOGLOBIN [id number] 03:18:26 Test Item Value Reference Range Interpretation Comments HEMOGLOBIN A1c (test 6.6 % 4.2-5.6 H [employer] code = 18601) ASSOCIATION IDELINES FOR HGB A1C: PREDIABETES/INC REASED [...] LABORATORY CONS ULTATION. CBC W/AUTO DIFF WITH [id number] 03:11:33 Test Item Value Reference Range Interpretation [...] RBCS 0.00 K/UL 0.00-0.11 (test code = 12206) XRAY Chest 2 views [id number] 13:39:00EXAM: XR CHEST 2 VIEWSDATE: 05/02/2019 14:44 CDTINDICATION: Status post pneumonectomy.COMPARISON: CXR 04/17/2019TECHNIQUE: PA and lateral chest radiographsFINDINGS:Problem with PACS integrating study with dictation.IshaanDaisymaritza BentonN [id number] 1950Lines and tubes: Median sternotomy wires.Atrial appendage [...]
== END 2022-01-23 05:41 | disposition expired | DRG 180 ==
LOC: ER 01:48 → ERHOLD 05:14 → 3RD-ICU 09:59
PROVIDERS: ADMIT Internal Medicine Sleep Medicine; ATTEND Internal Medicine Sleep Medicine
PROC: 05HQ33Z Insertion of Infusion Device into Left External Jugular Vein, Percutaneous Approach (ICD-10-PCS; principal; 2022-01-20)
PROC: 5A09457 Assistance with Respiratory Ventilation, 24-96 Consecutive Hours, Continuous Positive Airway Pressure (ICD-10-PCS; 2022-01-20)
PROC: 0BH17EZ Insertion of Endotracheal Airway into Trachea, Via Natural or Artificial Opening (ICD-10-PCS; 2022-01-23)
PROC: 5A12012 Performance of Cardiac Output, Single, Manual (ICD-10-PCS; 2022-01-23)
DX: C34.91 Malignant neoplasm of unspecified part of right bronchus or lung (principal); J96.02 Acute respiratory failure with hypercapnia; G93.41 Metabolic encephalopathy; C78.7 Secondary malignant neoplasm of liver and intrahepatic bile duct; I24.8 Other forms of acute ischemic heart disease; J91.0 Malignant pleural effusion; I48.91 Unspecified atrial fibrillation; I25.10 Atherosclerotic heart disease of native coronary artery without angina pectoris; E78.5 Hyperlipidemia, unspecified; N40.0 Benign prostatic hyperplasia without lower urinary tract symptoms; I46.9 Cardiac arrest, cause unspecified; I10 Essential (primary) hypertension; D72.829 Elevated white blood cell count, unspecified; K72.90 Hepatic failure, unspecified without coma; Z95.1 Presence of aortocoronary bypass graft; Z90.2 Acquired absence of lung [part of]; Z79.01 Long term (current) use of anticoagulants; Z20.822 Contact with and (suspected) exposure to COVID-19
CPT/HCPCS: 36415; 70491; 71045; 71250; 71260; 74160; 74230; 80048; 80076; 81003; 82728; 82805; 83540; 83605; 83735; 83880; 84466; 84484; 85025; 85610; 87040; 92611; 93005; 93306; 94640; 94660; 94760; 96374; 96375; 97116; 97161; 97530; 99285; J0171; J1160; J1650; J1720; J2543; J2920; J2930; J3490; J7030; J7512; Q9967; U0003